=== PATIENT | male | born 1945 | race Caucasian/White ===

== ENCOUNTER 2016-12-16 19:47 | Emergency (ER) | payer OTHER, MEDICARE, MEDICAID ==
[2016-12-16 20:10] VITALS: BP 199/101
[2016-12-16] MEDS ORDERED: Aspirin 81 MG Tab.Chew PO ONE (20:15)
[2016-12-16 20:48] LABS: CHLORIDE,CL 98 mmol/L (101-111); SODIUM,NA 133 mmol/L (135-145)
--- NOTE | 2016-12-16 21:04 | EDM.PDOC ---
ED HISTORY OF PRESENT ILLNESS - General Chief Complaint: Chest Pain Stated Complaint: BLOOD PRESSURE WENT UP Time Seen by Provider: 12/16/16 20:05 Source of Information: Reports: Patient History Limitations: Reports: No limitations - History of Present Illness INITIAL COMMENTS - FREE TEXT/NARRATIVE: vague complaint, initially of high BP and chest pain which is now relieved, admits anxiety. [facility]. Has not heard results. Notes epigastric pain from not eating when took medications this am. Patient is in no distress, lengthy detailed historian. - Related Data Allergies/ADRs: Allergies Allergy/AdvReac Type Severity Reaction Status Date / Time budesonide [From Symbicort] Allergy Numbness Verified 12/16/16 20:56 formoterol [From Symbicort] Allergy Numbness Verified 12/16/16 20:56 metoprolol Allergy Swollen Verified 12/16/16 20:53 Tongue tiotropium Allergy Cough Verified 12/16/16 20:55 [From Spiriva with HandiHaler] cholesterol pills Allergy Other Uncoded 12/16/16 20:53 Home Meds: Home Meds Hydrochlorothiazide 25 mg PO DAILY 11/08/14 [History] Verapamil [Verelan PM] 300 mg PO BEDTIME 11/08/14 [History] Levothyroxine Sodium [Synthroid] 25 mcg PO ACBREAKFAST 03/15/15 [History] Ranitidine HCl 1 tab PO BID PRN 06/23/15 [History] Clopidogrel Bisulfate [Clopidogrel] 75 mg PO DAILY 09/06/15 [History] Albuterol [Ventolin HFA] 2 puff INH Q4H PRN 05/22/16 [History] Apixaban [Eliquis] 5 mg PO BID 12/16/16 [History] Past Medical History HEENT History: Reports: Cataract Cardiovascular History: Reports: High cholesterol, Hypertension, Stents Respiratory History: Reports: COPD Gastrointestinal History: Reports: GERD Endocrine/Metabolic History: Reports: Hypothyroidism Other Endocrine/Metabolic History: thyroid problems - Infectious Disease History Infectious Disease History: Reports: Measles, Mumps - Past Surgical History HEENT Surgical History: Reports: Cataract surgery, Other (see below) Other HEENT Surgeries/Procedures: 1 week ago cataract left eye surgery Cardiovascular Surgical History: Reports: Coronary artery bypass Other Cardiovascular Surgeries/Procedures: stent in left leg Social & Family History - Tobacco Use Smoking Status *Q: Current Every Day Smoker Years of Tobacco use: 60 Packs/Tins Daily: 0.7 Used Tobacco, but Quit: No Second Hand Smoke Exposure: Yes - Caffeine Use Caffeine Use: Reports: Soda - Alcohol Use Days Per Week of Alcohol Use: 0 - Recreational Drug Use Recreational Drug Use: No - Living Situation & Occupation Living situation: Reports: , alone Occupation: retired ED ROS GENERAL - Review of Systems Review Of Systems: See Below Constitutional: Reports: no symptoms HEENT: Reports: No symptoms Respiratory: Reports: Shortness of Breath (chronic), Cough (chronic), Sputum ( yellow at times) Cardiovascular: Reports: Chest pain (notes across anterior chest worse with coughing), Blood pressure problem (elevated tonight) GI/Abdominal: Reports: No symptoms Musculoskeletal: Reports: no symptoms Skin: Reports: no symptoms Neurological: Reports: No Symptoms ED EXAM, GENERAL - Physical Exam Exam: See Below Exam Limited By: No limitations General Appearance: alert, no apparent distress Ears: normal external exam, normal TMs Nose: normal inspection Throat/Mouth: Normal inspection Head: atraumatic, normocephalic Neck: normal inspection Respiratory/Chest: no respiratory distress, decreased breath sounds, wheezing ( right improves with cough), other (cough loose bronchial non productive) Cardiovascular: normal peripheral pulses, regular rate, rhythm GI/Abdominal: normal bowel sounds Extremities: normal inspection, normal range of motion Neurological: alert, oriented, normal cognition Psychiatric: anxious Skin Exam: Warm, Dry, Intact, Normal color EKG INTERPRETATION Rhythm: NSR Course - Vital Signs Last Recorded V/S: Last Vital Signs Temp 97.8 F 12/16/16 19:59 Pulse 82 12/16/16 19:59 Resp 18 12/16/16 19:59 BP 199/101 H 12/16/16 19:59 Pulse Ox 97 12/16/16 19:59 - Orders/Labs/Meds Orders: Active Orders 24 hr Category Date Time Status EKG 12 Lead [EKG Documentation Completion] [RC] URGENT Care 12/16/16 20:16 Active Labs: Laboratory Tests 12/16/16 12/16/16 12/16/16 Range/Units 20:20 20:20 20:20 WBC 12.3 H (5.0-10.0) 10^3/uL RBC 5.31 (4.6-6.2) 10^6/uL Hgb 16.7 (14.0-18.0) g/dL Hct 47.6 (40.0-54.0) % MCV 89.6 (80-100) fL MCH 31.5 (27.0-34.0) pg MCHC 35.1 H (33.0-35.0) g/dL Plt Count 267 (150-450) 10^3/uL Neut % (Auto) 64.8 (42.2-75.2) % Lymph % (Auto) 28.7 (20.5-50.1) % [place] % (Auto) 6.1 (2-8) % Eos % (Auto) 0.2 L (1.0-3.0) % Baso % (Auto) 0.2 (0.0-1.0) % PT 10.4 (9.0-12.0) SEC INR 1.0 (0.9-1.2) D-Dimer, Quantitative (0-400) ng/mL Sodium 133 L (135-145) mmol/L Potassium 3.7 (3.6-5.0) mmol/L Chloride 98 L (101-111) mmol/L Carbon Dioxide 26.0 (21.0-31.0) mmol/L Anion Gap 12.7 BUN 24 H (7-18) mg/dL Creatinine 1.0 (0.6-1.3) mg/dL Est Cr Clr Drug Dosing 68.94 mL/min Estimated GFR (MDRD) > 60 BUN/Creatinine Ratio 24.00 Glucose 111 H (74-105) mg/dL Calcium 9.5 (8.4-10.2) mg/dl Total Bilirubin 0.5 (0.2-1.0) mg/dL AST 21 (10-42) IU/L ALT 18 (10-60) IU/L Alkaline Phosphatase 48 (42-121) IU/L CK-MB (CK-2) (0.4-4.7) ng/mL Troponin I < 0.02 (0.00-0.02) ng/ml B-Natriuretic Peptide 64 (0-100) pg/ml Total Protein 7.3 (6.7-8.2) g/dl Albumin 3.9 (3.2-5.5) g/dl Globulin 3.4 Albumin/Globulin Ratio 1.15 03/23/17 03/23/17 Range/Units 20:20 20:20 WBC (5.0-10.0) 10^3/uL RBC (4.6-6.2) 10^6/uL Hgb (14.0-18.0) g/dL Hct (40.0-54.0) % MCV (80-100) fL MCH (27.0-34.0) pg MCHC (33.0-35.0) g/dL Plt Count (150-450) 10^3/uL Neut % (Auto) (42.2-75.2) % Lymph % (Auto) (20.5-50.1) % [place] % (Auto) (2-8) % Eos % (Auto) (1.0-3.0) % Baso % (Auto) (0.0-1.0) % PT (9.0-12.0) SEC INR (0.9-1.2) D-Dimer, Quantitative 258 (0-400) ng/mL Sodium (135-145) mmol/L Potassium (3.6-5.0) mmol/L Chloride (101-111) mmol/L Carbon Dioxide (21.0-31.0) mmol/L Anion Gap BUN (7-18) mg/dL Creatinine (0.6-1.3) mg/dL Est Cr Clr Drug Dosing mL/min Estimated GFR (MDRD) BUN/Creatinine Ratio Glucose (74-105) mg/dL Calcium (8.4-10.2) mg/dl Total Bilirubin (0.2-1.0) mg/dL AST (10-42) IU/L ALT (10-60) IU/L Alkaline Phosphatase (42-121) IU/L CK-MB (CK-2) 2.80 (0.4-4.7) ng/mL Troponin I (0.00-0.02) ng/ml B-Natriuretic Peptide (0-100) pg/ml Total Protein (6.7-8.2) g/dl Albumin (3.2-5.5) g/dl Globulin Albumin/Globulin Ratio Meds: Medications Discontinued Medications Generic Name Dose Route Start Last Admin Trade Name Freq PRN Reason Stop Dose Admin Aspirin 324 mg 12/16/16 20:15 12/16/16 20:21 Aspirin PO 03/23/17 20:16 Not Given ONETIME ONE Lorazepam Confirm 12/16/16 21:38 12/16/16 21:45 Ativan Administered 12/16/16 21:39 Not Given Dose 0.5 mg .ROUTE .STK-MED ONE - Radiology Interpretation Free Text/Narrative:: CXR negative Departure - Departure Time of Disposition: 21:47 Disposition: Home, Self-Care 01 Condition: good Clinical Impression: Non-cardiac chest pain, Cough, Anxiety about health COPD (chronic obstructive pulmonary disease) Qualifiers: COPD type: chronic bronchitis Chronic bronchitis type: unspecified Qualified Code(s): J42 - Unspecified chronic bronchitis Instructions: Chronic Obstructive Pulmonary Disease, [id number] Referrals: PCP,Unknown [Primary Care Provider] - Forms: ED Department Discharge Additional Instructions: home medications as ordered ativan 0.5mg one half tablet tiwce daily as needed [facility] - My Orders Last 24 Hours: My Active Orders 12/16/16 20:16 EKG 12 Lead [EKG Documentation Completion] [RC] URGENT - Assessment/Plan Last 24 Hours: My Active Orders 12/16/16 20:16 EKG 12 Lead [EKG Documentation Completion] [RC] URGENT
[2016-12-16] MEDS ORDERED: LORazepam 0.5 MG Tab PO ONE (21:38)
[2016-12-16] MEDS ORDERED: LORazepam 0.5 MG Tab ONE (21:38)
--- NOTE | 2016-12-17 11:54 | EKG ---
12/16/2016 - MAU CARLTON - EKG shows sinus rhythm. There is right bundle-branch block. [facility] /[id number]
== END 2016-12-16 21:54 | disposition home or self-care (01) ==
LOC: DL.ED 19:47
DX: J42 Unspecified chronic bronchitis (principal); R07.89 Other chest pain; F41.9 Anxiety disorder, unspecified; I10 Essential (primary) hypertension; K21.9 Gastro-esophageal reflux disease without esophagitis; E03.9 Hypothyroidism, unspecified; Z95.1 Presence of aortocoronary bypass graft; F17.210 Nicotine dependence, cigarettes, uncomplicated; Z88.8 Allergy status to other drugs, medicaments and biological substances; Z79.899 Other long term (current) drug therapy; E78.00 Pure hypercholesterolemia, unspecified; Z98.49 Cataract extraction status, unspecified eye
CPT/HCPCS: 36415; 71010; 80053; 82553; 83880; 84484; 85025; 85379; 85610; 93005; 93010; 99285; A9270-GY

== ENCOUNTER 2017-01-06 05:50 | Emergency (ER) | payer MEDICARE, MEDICAID, SELFPAY ==
[2017-01-06] MEDS ORDERED: Albuterol 0.083% 2.5 MG/3 ML Neb Soln NEB ONE (05:58)
[2017-01-06] MEDS ORDERED: methylPREDNISolone Sodium Succinate 125 MG/2 ML SDV IVPUSH ONE (05:59)
--- NOTE | 2017-01-06 06:02 | EDM.PDOC ---
<Flavia Alejo - Last Filed: 01/06/17 06:14> ED HISTORY OF PRESENT ILLNESS - General Chief Complaint: Respiratory Problem Stated Complaint: DIFFICULTY BREATHING Time Seen by Provider: 01/06/17 06:05 Source of Information: Reports: Patient History Limitations: Reports: No limitations - History of Present Illness INITIAL COMMENTS - FREE TEXT/NARRATIVE: ED ambulatory, C/o SOB since 430, tried albuterol inhaler without improvement, Duoneb last night before bed. No fever or chill. Hx COPD. Cough productive at times white to green sputum, No c/o of chest pain. No chest pain. Timing/Duration: Reports: Hour(s): Severity: mild - Related Data Allergies/ADRs: Allergies Allergy/AdvReac Type Severity Reaction Status Date / Time budesonide [From Symbicort] Allergy Numbness Verified 01/06/17 06:04 formoterol [From Symbicort] Allergy Numbness Verified 01/06/17 06:04 metoprolol Allergy Swollen Verified 01/06/17 06:04 Tongue tiotropium Allergy Cough Verified 01/06/17 06:04 [From Spiriva with HandiHaler] cholesterol pills Allergy Other Uncoded 01/06/17 06:04 Home Meds: Home Meds Hydrochlorothiazide 25 mg PO DAILY 11/08/14 [History] Verapamil [Verelan PM] 300 mg PO BEDTIME 11/08/14 [History] Levothyroxine Sodium [Synthroid] 25 mcg PO ACBREAKFAST 03/15/15 [History] Ranitidine HCl 1 tab PO BID PRN 06/23/15 [History] Clopidogrel Bisulfate [Clopidogrel] 75 mg PO DAILY 09/06/15 [History] Albuterol [Ventolin HFA] 2 puff INH Q4H PRN 05/22/16 [History] Apixaban [Eliquis] 5 mg PO BID 12/16/16 [History] Past Medical History HEENT History: Reports: Cataract Cardiovascular History: Reports: High cholesterol, Hypertension, Stents Respiratory History: Reports: COPD Gastrointestinal History: Reports: GERD Endocrine/Metabolic History: Reports: Hypothyroidism Other Endocrine/Metabolic History: thyroid problems - Infectious Disease History Infectious Disease History: Reports: Measles, Mumps - Past Surgical History HEENT Surgical History: Reports: Cataract surgery, Other (see below) Other HEENT Surgeries/Procedures: 1 week ago cataract left eye surgery Cardiovascular Surgical History: Reports: Coronary artery bypass Other Cardiovascular Surgeries/Procedures: stent in left leg Social & Family History - Tobacco Use Smoking Status *Q: Current Every Day Smoker Years of Tobacco use: 60 Packs/Tins Daily: 0.7 Used Tobacco, but Quit: No Second Hand Smoke Exposure: Yes - Caffeine Use Caffeine Use: Reports: Soda - Alcohol Use Days Per Week of Alcohol Use: 0 - Recreational Drug Use Recreational Drug Use: No - Living Situation & Occupation Living situation: Reports: , alone Occupation: retired ED ROS GENERAL - Review of Systems Review Of Systems: See Below Constitutional: Reports: no symptoms HEENT: Reports: No symptoms Respiratory: Reports: Shortness of Breath, Cough, Sputum Cardiovascular: Reports: No symptoms GI/Abdominal: Reports: No symptoms Musculoskeletal: Reports: no symptoms Skin: Reports: no symptoms Neurological: Reports: No Symptoms ED EXAM, GENERAL - Physical Exam Exam: See Below Exam Limited By: No limitations General Appearance: alert, anxious, mild distress (talkative, full sentences) Eye Exam: bilateral eye: EOMI, PERRL Ears: normal external exam, normal TMs Throat/Mouth: Normal inspection, Normal oropharynx Head: atraumatic Neck: normal inspection, full range of motion Respiratory/Chest: wheezing (right) Cardiovascular: regular rate, rhythm. No: no edema (trace) GI/Abdominal: normal bowel sounds, soft Extremities: normal inspection, normal range of motion Neurological: alert, oriented, normal cognition Psychiatric: normal affect Skin Exam: Warm, Dry, Intact Course - Vital Signs Last Recorded V/S: Last Vital Signs Temp 36.2 C 01/06/17 06:13 Pulse 60 01/06/17 07:11 Resp 19 01/06/17 06:13 BP 139/83 01/06/17 06:13 Pulse Ox 97 01/06/17 07:11 - Orders/Labs/Meds Orders: Active Orders 24 hr Category Date Time Status EKG 12 Lead [EKG Documentation Completion] [RC] URGENT Care 01/06/17 05:57 Active RT Aerosol Therapy [RC] ASDIRECTED Care 01/06/17 05:58 Active RT Aerosol Therapy [RC] ASDIRECTED Care 01/06/17 06:59 Active Chest 1V Frontal [CR] Urgent Exams 01/06/17 05:56 Taken Labs: Laboratory Tests 0401/06/17 01/06/17 Range/Units 06:03 06:03 06:03 WBC 6.7 (5.0-10.0) 10^3/uL RBC 5.57 (4.6-6.2) 10^6/uL Hgb 17.3 (14.0-18.0) g/dL Hct 50.0 (40.0-54.0) % MCV 89.8 (80-100) fL MCH 31.1 (27.0-34.0) pg MCHC 34.6 (33.0-35.0) g/dL Plt Count 281 (150-450) 10^3/uL Neut % (Auto) 41.3 L (42.2-75.2) % Lymph % (Auto) 43.0 (20.5-50.1) % [place] % (Auto) 7.4 (2-8) % Eos % (Auto) 7.4 H (1.0-3.0) % Baso % (Auto) 0.9 (0.0-1.0) % PT (9.0-12.0) SEC INR (0.9-1.2) Sodium 135 (135-145) mmol/L Potassium 3.7 (3.6-5.0) mmol/L Chloride 99 L (101-111) mmol/L Carbon Dioxide 27.0 (21.0-31.0) mmol/L Anion Gap 12.7 BUN 15 (7-18) mg/dL Creatinine 1.2 (0.6-1.3) mg/dL Est Cr Clr Drug Dosing 57.45 mL/min Estimated GFR (MDRD) 60 BUN/Creatinine Ratio 12.50 Glucose 116 H (74-105) mg/dL Calcium 9.3 (8.4-10.2) mg/dl Total Bilirubin 0.5 (0.2-1.0) mg/dL AST 19 (10-42) IU/L ALT 15 (10-60) IU/L Alkaline Phosphatase 61 (42-121) IU/L Troponin I < 0.02 (0.00-0.02) ng/ml C-Reactive Protein 1.0 (0.0-1.3) mg/dL B-Natriuretic Peptide 20 (0-100) pg/ml Total Protein 7.5 (6.7-8.2) g/dl Albumin 3.9 (3.2-5.5) g/dl Globulin 3.6 Albumin/Globulin Ratio 1.08 01/06/17 Range/Units 06:03 WBC (5.0-10.0) 10^3/uL RBC (4.6-6.2) 10^6/uL Hgb (14.0-18.0) g/dL Hct (40.0-54.0) % MCV (80-100) fL MCH (27.0-34.0) pg MCHC (33.0-35.0) g/dL Plt Count (150-450) 10^3/uL Neut % (Auto) (42.2-75.2) % Lymph % (Auto) (20.5-50.1) % [place] % (Auto) (2-8) % Eos % (Auto) (1.0-3.0) % Baso % (Auto) (0.0-1.0) % PT 10.1 (9.0-12.0) SEC INR 1.0 (0.9-1.2) Sodium (135-145) mmol/L Potassium (3.6-5.0) mmol/L Chloride (101-111) mmol/L Carbon Dioxide (21.0-31.0) mmol/L Anion Gap BUN (7-18) mg/dL Creatinine (0.6-1.3) mg/dL Est Cr Clr Drug Dosing mL/min Estimated GFR (MDRD) BUN/Creatinine Ratio Glucose (74-105) mg/dL Calcium (8.4-10.2) mg/dl Total Bilirubin (0.2-1.0) mg/dL AST (10-42) IU/L ALT (10-60) IU/L Alkaline Phosphatase (42-121) IU/L Troponin I (0.00-0.02) ng/ml C-Reactive Protein (0.0-1.3) mg/dL B-Natriuretic Peptide (0-100) pg/ml Total Protein (6.7-8.2) g/dl Albumin (3.2-5.5) g/dl Globulin Albumin/Globulin Ratio Meds: Medications Discontinued Medications Generic Name Dose Route Start Last Admin Trade Name Freq PRN Reason Stop Dose Admin Albuterol 2.5 mg 01/06/17 05:58 01/06/17 06:05 Proventil Neb Soln NEB 01/06/17 05:59 2.5 mg ONETIME ONE Administration Albuterol/Ipratropium 3 ml 01/06/17 06:59 01/06/17 07:05 Duoneb 3.0-0.5 Mg/3 Ml NEB 01/06/17 07:00 3 ml ONETIME ONE Administration Methylprednisolone Sodium Succinate 125 mg 01/06/17 05:59 01/06/17 06:10 Solu-Medrol IVPUSH 01/06/17 06:00 125 mg ONETIME ONE Administration Departure - Departure Disposition: Home, Self-Care 01 Condition: good Clinical Impression: COPD (chronic obstructive pulmonary disease) with chronic bronchitis Instructions: Chronic Obstructive Pulmonary Disease Exacerbation, [id number] Forms: ED Department Discharge Additional Instructions: albuterol 2.5/3ml one via nebulizer every 4 hours s needed for difficulty breathing prednisone 10mg 2 tablets daily for one week then on tablet daily for one week robitussin cough syrup one teaspoon every 4-6 hours as needed to help loosen mucus recheck clinic on Tuesday sooner if symptoms worsen try to quit smoking <Melvin Lane - Last Filed: 01/06/17 07:32> Departure - Departure Time of Disposition: 07:32
[2017-01-06 06:14] VITALS: BP 139/83
[2017-01-06 06:31] LABS: CHLORIDE,CL 99 mmol/L (101-111); SODIUM,NA 135 mmol/L (135-145)
[2017-01-06] MEDS ORDERED: Albuterol/Ipratropium 3.0-0.5 MG/3 ML Neb Soln NEB ONE (06:59)
--- NOTE | 2017-01-07 09:23 | EKG ---
01/06/2017- MAU CARLTON - EKG done on a 71-year-old male showing sinus rhythm, heart rate of 64 beats per minute, right bundle branch block noted. No acute ST wave changes. [facility] /[id number]
== END 2017-01-06 07:35 | disposition home or self-care (01) ==
LOC: EEVIPCON 05:50 → DL.ED 05:50
DX: J44.9 Chronic obstructive pulmonary disease, unspecified (principal); E78.00 Pure hypercholesterolemia, unspecified; I10 Essential (primary) hypertension; K21.9 Gastro-esophageal reflux disease without esophagitis; E03.9 Hypothyroidism, unspecified; F17.210 Nicotine dependence, cigarettes, uncomplicated; Z95.1 Presence of aortocoronary bypass graft; Z88.8 Allergy status to other drugs, medicaments and biological substances; Z79.899 Other long term (current) drug therapy; Z98.42 Cataract extraction status, left eye
CPT/HCPCS: 36415; 71010; 80053; 83880; 84484; 85025; 85610; 86140; 93005; 94640; 96374; 99285; J2930; J7620; 93010; 99284

== ENCOUNTER 2017-06-15 08:13 | Emergency (ER) | payer MEDICARE, MEDICAID, OTHER, SELFPAY ==
--- NOTE | 2017-06-15 08:32 | EDM.PDOC ---
ED HPI GENERAL MEDICAL PROBLEM - General Chief Complaint: Chest Pain Stated Complaint: CHEST PAINS, FROM [facility] Time Seen by Provider: 06/15/17 08:21 Source of Information: Reports: Patient History Limitations: Reports: No Limitations - History of Present Illness INITIAL COMMENTS - FREE TEXT/NARRATIVE: This 72 yo male patient was brought to the ED from the [facility] due to chest pain. Apparently, the patient arrived at the [facility] this morning to be seen for chest pain. The patient reports his pain started at about 0530 after taking medications for some upper abdominal discomfort. The patient reports he took Ranatidine, Benadryl, Lorazepam, Tylenol, Prednisone and his albuterol inhaler with no symptom relief. The patient reports his pain is similar to previous episodes of acid reflux. The patient also reports he has not been having too many regular bowel movements. The patient reports he had a small bowel movement this morning. The patient reports he is now feeling a little better, but continues to have upper abdominal pain and mid back pain. Onset: Today Onset Date: 06/15/17 Onset Time: 05:30 Duration: Constant Location: Reports: Chest, Abdomen, Back Quality: Reports: Ache, Dull Severity: Moderate Improves with: Reports: None Worsens with: Reports: None Associated Symptoms: Reports: No Other Symptoms Epigastric Pain Score (Numeric/FACES): 7 Back Pain Score (Numeric/FACES): 7 - Related Data Allergies Allergy/AdvReac Type Severity Reaction Status Date / Time budesonide [From Symbicort] Allergy Numbness Verified 01/06/17 06:04 formoterol [From Symbicort] Allergy Numbness Verified 01/06/17 06:04 metoprolol Allergy Swollen Verified 01/06/17 06:04 Tongue tiotropium Allergy Cough Verified 01/06/17 06:04 [From Spiriva with HandiHaler] cholesterol pills Allergy Other Uncoded 01/06/17 06:04 Home Meds: Home Meds Hydrochlorothiazide 25 mg PO DAILY 11/08/14 [History] Verapamil [Verelan PM] 300 mg PO BEDTIME 11/08/14 [History] Levothyroxine Sodium [Synthroid] 25 mcg PO ACBREAKFAST 03/15/15 [History] Ranitidine HCl 1 tab PO BID PRN 06/23/15 [History] Clopidogrel Bisulfate [Clopidogrel] 75 mg PO DAILY 09/06/15 [History] Albuterol [Ventolin HFA] 2 puff INH Q6H PRN 05/22/16 [History] Apixaban [Eliquis] 5 mg PO BID 12/16/16 [History] Albuterol/Ipratropium [DuoNeb 3.0-0.5 MG/3 ML] 3 ml NEB Q6HRRT 06/15/17 [History ] Amiodarone [Cordarone] 200 mg PO DAILY 06/15/17 [History] LORazepam [Ativan] 0.5 mg PO DAILY PRN 06/15/17 [History] Nicotine [Nicotine Patch] 1 patch TOP DAILY 06/15/17 [History] Prednisone [IMW: Prednisone] 10 mg PO DAILY 06/15/17 [History] Past Medical History HEENT History: Reports: Cataract Cardiovascular History: Reports: High Cholesterol, Hypertension, Stents Respiratory History: Reports: COPD Gastrointestinal History: Reports: GERD Endocrine/Metabolic History: Reports: Hypothyroidism Other Endocrine/Metabolic History: thyroid problems - Infectious Disease History Infectious Disease History: Reports: Measles, Mumps - Past Surgical History HEENT Surgical History: Reports: Cataract Surgery, Other (See Below) Cardiovascular Surgical History: Reports: Coronary Artery Bypass Social & Family History - Tobacco Use Smoking Status *Q: Current Every Day Smoker Years of Tobacco use: 60 Packs/Tins Daily: 0.7 Used Tobacco, but Quit: No Second Hand Smoke Exposure: Yes - Caffeine Use Caffeine Use: Reports: Soda - Alcohol Use Days Per Week of Alcohol Use: 0 - Recreational Drug Use Recreational Drug Use: No - Living Situation & Occupation Living situation: Reports: , Alone Occupation: Retired ED ROS GENERAL - Review of Systems Review Of Systems: ROS reveals no pertinent complaints other than HPI. ED EXAM, GENERAL - Physical Exam Exam: See Below Exam Limited By: No Limitations General Appearance: Alert, WD/WN, Mild Distress, Obese Eye Exam: Bilateral Eye: EOMI, Normal Inspection, PERRL Ears: Normal External Exam, Normal Canal, Hearing Grossly Normal, Normal TMs Nose: Normal Inspection, Normal Mucosa, No Blood Throat/Mouth: Normal Inspection, Normal Lips, Normal Teeth, Normal Gums, Normal Oropharynx, Normal Voice, No Airway Compromise Head: Atraumatic, Normocephalic Neck: Normal Inspection, Supple, Non-Tender, Full Range of Motion Respiratory/Chest: Decreased Breath Sounds, Rhonchi (diffuse) Cardiovascular: Normal Peripheral Pulses, Regular Rate, Rhythm, No Edema, No Gallop, No JVD, No Murmur, No Rub GI/Abdominal: Normal Bowel Sounds, No Organomegaly, No Distention, No Abnormal Bruit, No Mass, Distended, Tender (diffuse tenderness to palpation) (Male) Exam: Deferred Rectal (Males) Exam: Deferred Back Exam: Normal Inspection, Full Range of Motion, NT Extremities: Normal Inspection, Normal Range of Motion, Non-Tender, Normal Capillary Refill, No Pedal Edema Neurological: Alert, Oriented, CN II-XII Intact, Normal Cognition, Normal Gait, Normal Reflexes, No Motor/Sensory Deficits Psychiatric: Normal Affect, Normal Mood Skin Exam: Warm, Dry, Intact, Normal Color, No Rash Lymphatic: No Adenopathy Course - Vital Signs Last Recorded V/S: Last Vital Signs Temp 36.2 C 06/15/17 08:15 Pulse 67 06/15/17 08:15 Resp 20 06/15/17 08:15 BP 185/81 H 06/15/17 08:15 Pulse Ox 96 06/15/17 08:15 - Orders/Labs/Meds Orders: Active Orders 24 hr Category Date Time Status EKG Documentation Completion [RC] URGENT Care 06/15/17 08:14 Active Abdomen 2V AP Flat Upright [CR] Urgent Exams 06/15/17 08:59 Ordered Chest 1V Frontal [CR] Urgent Exams 06/15/17 08:14 Ordered Labs: Laboratory Tests 06/15/17 06/15/17 06/15/17 Range/Units 08:28 08:28 08:28 WBC 9.8 (5.0-10.0) 10^3/uL RBC 5.35 (4.6-6.2) 10^6/uL Hgb 17.0 (14.0-18.0) g/dL Hct 50.3 (40.0-54.0) % MCV 94.0 (80-100) fL MCH 31.8 (27.0-34.0) pg MCHC 33.8 (33.0-35.0) g/dL Plt Count 230 (150-450) 10^3/uL Neut % (Auto) 71.1 (42.2-75.2) % Lymph % (Auto) 20.4 L (20.5-50.1) % [place] % (Auto) 5.3 (2-8) % Eos % (Auto) 2.4 (1.0-3.0) % Baso % (Auto) 0.8 (0.0-1.0) % PT 9.7 (9.0-12.0) SEC INR 1.0 (0.9-1.2) D-Dimer, Quantitative 166 (0-400) ng/mL Sodium 139 (135-145) mmol/L Potassium 4.2 (3.6-5.0) mmol/L Chloride 99 L (101-111) mmol/L Carbon Dioxide 27.0 (21.0-31.0) mmol/L Anion Gap 17.2 BUN 18 (7-18) mg/dL Creatinine 1.1 (0.6-1.3) mg/dL Est Cr Clr Drug Dosing 63.70 mL/min Estimated GFR (MDRD) > 60 BUN/Creatinine Ratio 16.36 Glucose 122 H (74-105) mg/dL Calcium 9.8 (8.4-10.2) mg/dl Total Bilirubin 0.5 (0.2-1.0) mg/dL AST 19 (10-42) IU/L ALT 18 (10-60) IU/L Alkaline Phosphatase 44 (42-121) IU/L Troponin I < 0.02 (0.00-0.02) ng/ml B-Natriuretic Peptide 19 (0-100) pg/ml Total Protein 7.2 (6.7-8.2) g/dl Albumin 3.9 (3.2-5.5) g/dl Globulin 3.3 Albumin/Globulin Ratio 1.18 Meds: Medications Discontinued Medications Generic Name Dose Route Start Last Admin Trade Name Freq PRN Reason Stop Dose Admin Amoxicillin/Clavulanate Potassium 1 tab 06/15/17 09:24 Augmentin 875 Mg/125 Mg PO 06/15/17 09:25 ONETIME ONE Departure - Departure Time of Disposition: :31 Disposition: Home, Self-Care 01 Condition: Fair Clinical Impression: Bronchitis Constipation Qualifiers: Constipation type: unspecified constipation type Qualified Code(s): K59.00 - Constipation, unspecified GERD (gastroesophageal reflux disease) Qualifiers: Esophagitis presence: with esophagitis Qualified Code(s): K21.0 - Gastro- esophageal reflux disease with esophagitis Instructions: Constipation, Adult, Gastroesophageal Reflux Disease, Adult, Acute Bronchitis, [id number] Forms: ED Department Discharge Care Plan Goals: The patient was advised of the examination, lab, EKG and x-ray results during the visit. The patient was given an oral dose of Augmentin while in the ED. The patient was discharged with a script for Augmentin (500/125) to take 1 by mouth 2 times per day for 10 days. The patient should continue to take his other medications as prescribed. The patient was also encouraged to take his stool softener as directed. If the patient has any additional symptoms or concerns, the patient should follow-up with is primary care facility or return to the emergency department. - My Orders Last 24 Hours: My Active Orders 06/15/17 08:14 EKG Documentation Completion [RC] URGENT Chest 1V Frontal [CR] Urgent 06/15/17 08:59 Abdomen 2V AP Flat Upright [CR] Urgent - Assessment/Plan Last 24 Hours: My Active Orders 06/15/17 08:14 EKG Documentation Completion [RC] URGENT Chest 1V Frontal [CR] Urgent 06/15/17 08:59 Abdomen 2V AP Flat Upright [CR] Urgent
[2017-06-15 08:54] LABS: CHLORIDE,CL 99 mmol/L (101-111); SODIUM,NA 139 mmol/L (135-145)
[2017-06-15] MEDS ORDERED: Amoxicillin/Clavulanate K 875-125 MG Tab PO ONE (09:24)
[2017-06-15 10:39] VITALS: BP 164/88
--- NOTE | 2017-06-15 16:30 | EKG ---
06/15/2017 - MAU CARLTON I reviewed the EKG and agree with the machine reading. [facility] /[id number]
== END 2017-06-15 09:41 | disposition home or self-care (01) ==
LOC: DL.ED 08:13
DX: K21.0 Gastro-esophageal reflux disease with esophagitis (principal); J20.9 Acute bronchitis, unspecified; K59.00 Constipation, unspecified; I10 Essential (primary) hypertension; J44.9 Chronic obstructive pulmonary disease, unspecified; F17.210 Nicotine dependence, cigarettes, uncomplicated; Z88.8 Allergy status to other drugs, medicaments and biological substances
CPT/HCPCS: 36415; 71010; 74020; 80053; 83880; 84484; 85025; 85379; 85610; 93005; 93010; 99285; A9270; 99284

== ENCOUNTER 2017-07-16 11:37 | Emergency (ER) | payer MEDICARE, MEDICAID, OTHER, SELFPAY ==
[2017-07-16 11:56] VITALS: BP 160/91
--- NOTE | 2017-07-16 12:12 | EDM.PDOC ---
ED HPI GENERAL MEDICAL PROBLEM - General Chief Complaint: General Stated Complaint: HEART, WANTS EKG Time Seen by Provider: 07/16/17 12:09 Source of Information: Reports: Patient History Limitations: Reports: No Limitations - History of Present Illness INITIAL COMMENTS - FREE TEXT/NARRATIVE: 72 yo white male c/o irregular heart beat 2 days ago. PMHx. CAHD s/p CABG 3 vessels in 2011. Pt. also has PMHx. of cardiac arrythmia and continues to smoke cigarettes. Pt. denies ( SOB, Chest pain or pressure and no radiation of pain) Onset Date: 07/14/17 Onset Time: 12:00 Duration: Day(s): Location: Reports: Chest Severity: Mild Improves with: Reports: None Worsens with: Reports: None Context: Reports: Other (PMHx. CAHD and Arrythmia) Associated Symptoms: Reports: No Other Symptoms Bilateral Feet Pain Score (Numeric/FACES): 1 - Related Data Allergies Allergy/AdvReac Type Severity Reaction Status Date / Time budesonide [From Symbicort] Allergy Numbness Verified 01/06/17 06:04 formoterol [From Symbicort] Allergy Numbness Verified 01/06/17 06:04 metoprolol Allergy Swollen Verified 01/06/17 06:04 Tongue tiotropium Allergy Cough Verified 01/06/17 06:04 [From Spiriva with HandiHaler] cholesterol pills Allergy Other Uncoded 01/06/17 06:04 Home Meds: Home Meds Hydrochlorothiazide 50 mg PO DAILY 11/08/14 [History] Verapamil [Verelan PM] 300 mg PO BEDTIME 11/08/14 [History] Levothyroxine Sodium [Synthroid] 25 mcg PO ACBREAKFAST 03/15/15 [History] Ranitidine HCl 1 tab PO BID PRN 06/23/15 [History] Clopidogrel Bisulfate [Clopidogrel] 75 mg PO DAILY 09/06/15 [History] Albuterol [Ventolin HFA] 2 puff INH Q6H PRN 05/22/16 [History] Apixaban [Eliquis] 5 mg PO BID 12/16/16 [History] Albuterol/Ipratropium [DuoNeb 3.0-0.5 MG/3 ML] 3 ml NEB Q6HRRT 06/15/17 [History ] Amiodarone [Cordarone] 100 mg PO DAILY 06/15/17 [History] LORazepam [Ativan] 0.5 mg PO DAILY PRN 06/15/17 [History] Prednisone [IMW: Prednisone] 10 mg PO DAILY 06/15/17 [History] Fluticasone Furoate [Flonase Sensimist] 1 spray NASBOTH DAILY 07/16/17 [History] Montelukast [Singulair] 10 mg PO BEDTIME 07/16/17 [History] diphenhydrAMINE HCl [Benadryl Allergy] 25 mg PO DAILY PRN 07/16/17 [History] Past Medical History HEENT History: Reports: Cataract Cardiovascular History: Reports: High Cholesterol, Hypertension, Stents Respiratory History: Reports: COPD Gastrointestinal History: Reports: GERD Endocrine/Metabolic History: Reports: Hypothyroidism Other Endocrine/Metabolic History: thyroid problems - Infectious Disease History Infectious Disease History: Reports: Measles, Mumps - Past Surgical History HEENT Surgical History: Reports: Cataract Surgery, Other (See Below) Cardiovascular Surgical History: Reports: Coronary Artery Bypass Social & Family History - Tobacco Use Smoking Status *Q: Current Every Day Smoker Years of Tobacco use: 30 Packs/Tins Daily: 0.5 Used Tobacco, but Quit: No Second Hand Smoke Exposure: No - Caffeine Use Caffeine Use: Reports: Coffee, Tea - Alcohol Use Days Per Week of Alcohol Use: 0 - Recreational Drug Use Recreational Drug Use: No - Living Situation & Occupation Living situation: Reports: , Alone Occupation: Retired ED ROS GENERAL - Review of Systems Review Of Systems: See Below Constitutional: Reports: No Symptoms HEENT: Reports: No Symptoms Respiratory: Reports: No Symptoms Cardiovascular: Reports: Palpitations Endocrine: Reports: No Symptoms GI/Abdominal: Reports: No Symptoms : Reports: No Symptoms Musculoskeletal: Reports: No Symptoms Skin: Reports: No Symptoms Neurological: Reports: No Symptoms Psychiatric: Reports: No Symptoms Hematologic/Lymphatic: Reports: No Symptoms Immunologic: Reports: No Symptoms ED EXAM, GENERAL - Physical Exam Exam: See Below Exam Limited By: No Limitations General Appearance: Alert, No Apparent Distress Eye Exam: Bilateral Eye: EOMI, PERRL Ears: Normal External Exam Nose: Normal Inspection Throat/Mouth: Normal Inspection, Normal Lips Head: Atraumatic, Normocephalic Neck: Normal Inspection, Supple Respiratory/Chest: No Respiratory Distress, Lungs Clear Cardiovascular: Normal Peripheral Pulses, Regular Rate, Rhythm Peripheral Pulses: 2+: Brachial (L), Brachial (R) GI/Abdominal: Normal Bowel Sounds, Soft Back Exam: Normal Inspection Extremities: Normal Inspection, Normal Range of Motion Neurological: Alert, Oriented, CN II-XII Intact, Normal Cognition Psychiatric: Normal Affect Skin Exam: Warm, Intact, Normal Color Lymphatic: No Adenopathy Course - Vital Signs Last Recorded V/S: Last Vital Signs Temp 36.8 C 07/16/17 11:47 Pulse 84 07/16/17 11:47 Resp 18 07/16/17 11:47 BP 160/91 H 07/16/17 11:47 Pulse Ox 97 07/16/17 11:47 - Orders/Labs/Meds Orders: Active Orders 24 hr Category Date Time Status Chest 2V [CR] Urgent Exams 07/16/17 12:10 Taken MAGNESIUM [CHEM] Stat Lab 07/16/17 13:37 Ordered Potassium Chloride [Klor-Con 10] Med 07/16/17 13:37 Once 20 meq PO ONETIME ONE Labs: Laboratory Tests 07/16/17 07/16/17 07/16/17 Range/Units 12:20 12:20 12:20 WBC 7.5 (5.0-10.0) 10^3/uL RBC 5.38 (4.6-6.2) 10^6/uL Hgb 17.0 (14.0-18.0) g/dL Hct 49.9 (40.0-54.0) % MCV 92.8 (80-100) fL MCH 31.6 (27.0-34.0) pg MCHC 34.1 (33.0-35.0) g/dL Plt Count 208 (150-450) 10^3/uL Neut % (Auto) 59.9 (42.2-75.2) % Lymph % (Auto) 28.2 (20.5-50.1) % [place] % (Auto) 8.4 H (2-8) % Eos % (Auto) 2.7 (1.0-3.0) % Baso % (Auto) 0.8 (0.0-1.0) % D-Dimer, Quantitative 195 (0-400) ng/mL Sodium 136 (135-145) mmol/L Potassium 3.5 L (3.6-5.0) mmol/L Chloride 100 L (101-111) mmol/L Carbon Dioxide 26.0 (21.0-31.0) mmol/L Anion Gap 13.5 BUN 19 H (7-18) mg/dL Creatinine 1.2 (0.6-1.3) mg/dL Est Cr Clr Drug Dosing 57.50 mL/min Estimated GFR (MDRD) 59 BUN/Creatinine Ratio 15.83 Glucose 116 H (74-105) mg/dL Calcium 9.4 (8.4-10.2) mg/dl Total Bilirubin 0.9 (0.2-1.0) mg/dL AST 22 (10-42) IU/L ALT 19 (10-60) IU/L Alkaline Phosphatase 45 (42-121) IU/L Troponin I < 0.02 (0.00-0.02) ng/ml Total Protein 6.9 (6.7-8.2) g/dl Albumin 3.8 (3.2-5.5) g/dl Globulin 3.1 Albumin/Globulin Ratio 1.23 Departure - Departure Time of Disposition: 13:39 Disposition: Home, Self-Care 01 Condition: Good Clinical Impression: Heart palpitations, Tobacco abuse disorder, ASHD (arteriosclerotic heart disease), Hypokalemia - Discharge Information Forms: ED Department Discharge Additional Instructions: Rest STOP CIGARETTE SMOKING Continue w/ present medications as prescribed F/U w/ PCP - My Orders Last 24 Hours: My Active Orders 07/16/17 12:10 Chest 2V [CR] Urgent 07/16/17 13:37 MAGNESIUM [CHEM] Stat Potassium Chloride [Klor-Con 10] 20 meq PO ONETIME ONE - Assessment/Plan Last 24 Hours: My Active Orders 07/16/17 12:10 Chest 2V [CR] Urgent 07/16/17 13:37 MAGNESIUM [CHEM] Stat Potassium Chloride [Klor-Con 10] 20 meq PO ONETIME ONE
[2017-07-16 12:47] LABS: CHLORIDE,CL 100 mmol/L (101-111); SODIUM,NA 136 mmol/L (135-145)
[2017-07-16] MEDS ORDERED: Potassium Chloride 10 MEQ Tab.ER PO ONE (13:37)
--- NOTE | 2017-07-19 11:28 | EKG ---
07/16/2017 - MAU CARLTON - EKG shows sinus rhythm at rate of 69 per minute. [facility] /[id number]
== END 2017-07-16 13:56 | disposition home or self-care (01) ==
LOC: DL.ED 11:37
DX: I25.10 Atherosclerotic heart disease of native coronary artery without angina pectoris (principal); I10 Essential (primary) hypertension; E87.6 Hypokalemia; F17.210 Nicotine dependence, cigarettes, uncomplicated; K21.9 Gastro-esophageal reflux disease without esophagitis; J44.9 Chronic obstructive pulmonary disease, unspecified; Z88.8 Allergy status to other drugs, medicaments and biological substances; Z79.899 Other long term (current) drug therapy
CPT/HCPCS: 36415; 71020; 80053; 83735; 84484; 85025; 85379; 99284; A9270

== ENCOUNTER 2017-11-18 02:54 | Inpatient (IN) | payer MEDICARE, MEDICAID ==
--- NOTE | 2017-11-18 03:00 | EDM.PDOC ---
ED HPI GENERAL MEDICAL PROBLEM - General Stated Complaint: SOB [id number] Time Seen by Provider: 11/18/17 02:57 Source of Information: Reports: Patient History Limitations: Reports: No Limitations - History of Present Illness INITIAL COMMENTS - FREE TEXT/NARRATIVE: ED ambulatory with c/o feeling short of breath. for past couple of months. Unable to sleep tonight. Used inhaler more often yesterday. No fever or chills. Cough non productive. Legs starting to swell, Difficulty bending over to tie shoes Admits recent restarting smoking within past month. Hx COPD. No chest pain. Reports base weight 212 but now after being on Prednisone for past 2 months is now upt to 255. - Related Data Allergies Allergy/AdvReac Type Severity Reaction Status Date / Time budesonide [From Symbicort] Allergy Numbness Verified 11/18/17 03:06 formoterol [From Symbicort] Allergy Numbness Verified 11/18/17 03:06 metoprolol Allergy Swollen Verified 11/18/17 03:06 Tongue tiotropium Allergy Cough Verified 11/18/17 03:06 [From Spiriva with HandiHaler] cholesterol pills Allergy Other Uncoded 11/18/17 03:06 Home Meds: Home Meds Hydrochlorothiazide 50 mg PO DAILY 11/08/14 [History] Verapamil [Verelan PM] 300 mg PO BEDTIME 11/08/14 [History] Levothyroxine Sodium [Synthroid] 25 mcg PO ACBREAKFAST 03/15/15 [History] Ranitidine HCl 1 tab PO BID PRN 06/23/15 [History] Clopidogrel Bisulfate [Clopidogrel] 75 mg PO DAILY 09/06/15 [History] Albuterol [Ventolin HFA] 2 puff INH Q6H PRN 05/22/16 [History] Apixaban [Eliquis] 5 mg PO BID 12/16/16 [History] Albuterol/Ipratropium [DuoNeb 3.0-0.5 MG/3 ML] 3 ml NEB Q6HRRT 06/15/17 [History ] Amiodarone [Cordarone] 100 mg PO DAILY 06/15/17 [History] LORazepam [Ativan] 0.5 mg PO DAILY PRN 06/15/17 [History] Prednisone [IMW: Prednisone] 10 mg PO DAILY 06/15/17 [History] Fluticasone Furoate [Flonase Sensimist] 1 spray NASBOTH DAILY 07/16/17 [History] Montelukast [Singulair] 10 mg PO BEDTIME 07/16/17 [History] diphenhydrAMINE HCl [Benadryl Allergy] 25 mg PO DAILY PRN 07/16/17 [History] Past Medical History HEENT History: Reports: Cataract Cardiovascular History: Reports: High Cholesterol, Hypertension, Stents Respiratory History: Reports: COPD Gastrointestinal History: Reports: GERD Genitourinary History: Reports: None Musculoskeletal History: Reports: None Neurological History: Reports: None Psychiatric History: Reports: None Endocrine/Metabolic History: Reports: Hypothyroidism Other Endocrine/Metabolic History: thyroid problems Hematologic History: Reports: None Immunologic History: Reports: None Oncologic (Cancer) History: Reports: None Dermatologic History: Reports: None - Infectious Disease History Infectious Disease History: Reports: Measles, Mumps - Past Surgical History HEENT Surgical History: Reports: Cataract Surgery, Other (See Below) Cardiovascular Surgical History: Reports: Coronary Artery Bypass Social & Family History - Tobacco Use Smoking Status *Q: Current Every Day Smoker Years of Tobacco use: 30 Packs/Tins Daily: 0.5 Used Tobacco, but Quit: No Second Hand Smoke Exposure: No - Caffeine Use Caffeine Use: Reports: Coffee, Tea - Alcohol Use Days Per Week of Alcohol Use: 0 - Recreational Drug Use Recreational Drug Use: No - Living Situation & Occupation Living situation: Reports: , Alone Occupation: Retired ED ROS GENERAL - Review of Systems Review Of Systems: ROS reveals no pertinent complaints other than HPI. HEENT: Reports: No Symptoms Respiratory: Reports: Shortness of Breath, Wheezing, Cough. Denies: Sputum Cardiovascular: Reports: Dyspnea on Exertion, Orthopnea. Denies: Chest Pain GI/Abdominal: Reports: No Symptoms : Reports: No Symptoms Musculoskeletal: Reports: No Symptoms Skin: Reports: No Symptoms Neurological: Reports: No Symptoms ED EXAM, GENERAL - Physical Exam Exam: See Below Exam Limited By: No Limitations General Appearance: Alert, Mild Distress (rare cough, talking full sentences pursed lip breathing, prolonged expiration. ), Moderate Distress (with minimal exertion and coughing episodes. ), Obese Ears: Normal External Exam Ear Exam: Bilateral Ear: Auricle Normal Nose: Normal Inspection Throat/Mouth: Normal Inspection, Normal Lips, Normal Oropharynx, Perioral Cyanosis Head: Atraumatic Neck: Normal Inspection Respiratory/Chest: Decreased Breath Sounds, Rhonchi, Wheezing (thoughout), Prolonged Expiration Cardiovascular: Normal Peripheral Pulses. No: No Edema GI/Abdominal: Normal Bowel Sounds Back Exam: Normal Inspection Extremities: Normal Inspection Neurological: Alert, Oriented, Normal Cognition Psychiatric: Normal Affect, Normal Mood Skin Exam: Warm, Dry, Intact, Normal Color, No Rash Course - Vital Signs Last Recorded V/S: Last Vital Signs Temp 98.7 F 11/18/17 03:48 Pulse 65 11/18/17 03:48 Resp 16 11/18/17 03:48 BP 136/81 11/18/17 03:48 Pulse Ox 100 11/18/17 03:48 - Orders/Labs/Meds Orders: Active Orders 24 hr Category Date Time Status EKG Documentation Completion [RC] URGENT Care 11/18/17 03:02 Active RT Aerosol Therapy [RC] ASDIRECTED Care 11/18/17 03:36 Active CULTURE BLOOD [BC] Stat Lab 11/18/17 04:25 Received CULTURE BLOOD [BC] Stat Lab 11/18/17 04:30 Results LACTIC ACID [CHEM] Stat Lab 11/18/17 03:15 Received Blood Culture x2 Reflex Set [OM.PC] Stat Oth 11/18/17 04:12 Ordered Labs: Laboratory Tests 11/18/17 11/18/17 11/18/17 Range/Units 03:15 03:15 03:15 WBC 11.3 H (5.0-10.0) 10^3/uL RBC 5.34 (4.6-6.2) 10^6/uL Hgb 16.8 (14.0-18.0) g/dL Hct 49.1 (40.0-54.0) % MCV 91.9 (80-100) fL MCH 31.5 (27.0-34.0) pg MCHC 34.2 (33.0-35.0) g/dL Plt Count 235 (150-450) 10^3/uL Neut % (Auto) 51.3 (42.2-75.2) % Lymph % (Auto) 36.2 (20.5-50.1) % [place] % (Auto) 8.6 H (2-8) % Eos % (Auto) 3.4 H (1.0-3.0) % Baso % (Auto) 0.5 (0.0-1.0) % PT 10.0 (9.0-12.0) SEC INR 1.0 (0.9-1.2) Sodium 135 (135-145) mmol/L Potassium 3.3 L (3.6-5.0) mmol/L Chloride 102 (101-111) mmol/L Carbon Dioxide 24.0 (21.0-31.0) mmol/L Anion Gap 12.3 BUN 25 H (7-18) mg/dL Creatinine 1.2 (0.6-1.3) mg/dL Est Cr Clr Drug Dosing 56.61 mL/min Estimated GFR (MDRD) 59 BUN/Creatinine Ratio 20.83 Glucose 97 (74-105) mg/dL Calcium 9.4 (8.4-10.2) mg/dl Total Bilirubin 0.7 (0.2-1.0) mg/dL AST 19 (10-42) IU/L ALT 18 (10-60) IU/L Alkaline Phosphatase 43 (42-121) IU/L CK-MB (CK-2) (0.4-4.7) ng/mL Troponin I < 0.02 (0.00-0.02) ng/ml B-Natriuretic Peptide 90 (0-100) pg/ml Total Protein 6.9 (6.7-8.2) g/dl Albumin 3.7 (3.2-5.5) g/dl Globulin 3.2 Albumin/Globulin Ratio 1.16 11/18/17 Range/Units 03:15 WBC (5.0-10.0) 10^3/uL RBC (4.6-6.2) 10^6/uL Hgb (14.0-18.0) g/dL Hct (40.0-54.0) % MCV (80-100) fL MCH (27.0-34.0) pg MCHC (33.0-35.0) g/dL Plt Count (150-450) 10^3/uL Neut % (Auto) (42.2-75.2) % Lymph % (Auto) (20.5-50.1) % [place] % (Auto) (2-8) % Eos % (Auto) (1.0-3.0) % Baso % (Auto) (0.0-1.0) % PT (9.0-12.0) SEC INR (0.9-1.2) Sodium (135-145) mmol/L Potassium (3.6-5.0) mmol/L Chloride (101-111) mmol/L Carbon Dioxide (21.0-31.0) mmol/L Anion Gap BUN (7-18) mg/dL Creatinine (0.6-1.3) mg/dL Est Cr Clr Drug Dosing mL/min Estimated GFR (MDRD) BUN/Creatinine Ratio Glucose (74-105) mg/dL Calcium (8.4-10.2) mg/dl Total Bilirubin (0.2-1.0) mg/dL AST (10-42) IU/L ALT (10-60) IU/L Alkaline Phosphatase (42-121) IU/L CK-MB (CK-2) 3.40 (0.4-4.7) ng/mL Troponin I (0.00-0.02) ng/ml B-Natriuretic Peptide (0-100) pg/ml Total Protein (6.7-8.2) g/dl Albumin (3.2-5.5) g/dl Globulin Albumin/Globulin Ratio Meds: Medications Discontinued Medications Generic Name Dose Route Start Last Admin Trade Name Freq PRN Reason Stop Dose Admin Albuterol 2.5 mg 11/18/17 03:36 11/18/17 03:40 Proventil Neb Soln NEB 11/18/17 03:37 2.5 mg ONETIME ONE Administration Furosemide 20 mg 11/18/17 03:37 11/18/17 03:41 Lasix IVPUSH 11/18/17 03:38 20 mg ONETIME ONE Administration Methylprednisolone Sodium Succinate 125 mg 11/18/17 04:12 11/18/17 04:20 Solu-Medrol IVPUSH 11/18/17 04:13 125 mg ONETIME ONE Administration - Re-Assessments/Exams Free Text/Narrative Re-Assessment/Exam: 11/18/17 04:[address] Morales [facility] regarding patient. Due to patient status, potential for decompensation and bad weather in [place], recommend patient be admitted to our facility. stated she would be making a [facility] and the recommendation that patient be admitted locally. 11/18/17 04:49 Dr. Freire accepting of patient for further evaluation and management COPD exacerbation Departure - Departure Time of Disposition: 04:52 Disposition: Admitted As Inpatient 65 Condition: Fair Clinical Impression: COPD exacerbation, Tobacco abuse, Reflux esophagitis, Cough - Discharge Information - My Orders Last 24 Hours: My Active Orders 11/18/17 03:02 EKG Documentation Completion [RC] URGENT 11/18/17 03:15 LACTIC ACID [CHEM] Stat 11/18/17 03:36 RT Aerosol Therapy [RC] ASDIRECTED 11/18/17 04:12 Blood Culture x2 Reflex Set [OM.PC] Stat 11/18/17 04:25 CULTURE BLOOD [BC] Stat 11/18/17 04:30 CULTURE BLOOD [BC] Stat - Assessment/Plan Last 24 Hours: My Active Orders 11/18/17 03:02 EKG Documentation Completion [RC] URGENT 11/18/17 03:15 LACTIC ACID [CHEM] Stat 11/18/17 03:36 RT Aerosol Therapy [RC] ASDIRECTED 11/18/17 04:12 Blood Culture x2 Reflex Set [OM.PC] Stat 11/18/17 04:25 CULTURE BLOOD [BC] Stat 11/18/17 04:30 CULTURE BLOOD [BC] Stat
[2017-11-18] MEDS ORDERED: Albuterol 0.083% 2.5 MG/3 ML Neb Soln NEB ONE (03:36)
[2017-11-18] MEDS ORDERED: Furosemide 20 MG/2 ML VIAL IVPUSH ONE (03:37)
[2017-11-18 03:44] LABS: CHLORIDE,CL 102 mmol/L (101-111); SODIUM,NA 135 mmol/L (135-145)
[2017-11-18] MEDS ORDERED: methylPREDNISolone Sodium Succinate 125 MG/2 ML SDV IVPUSH ONE (04:12)
[2017-11-18] MEDS ORDERED: Albuterol 0.083% 2.5 MG/3 ML Neb Soln NEB PRN (06:00)
--- NOTE | 2017-11-18 06:19 | PCM.HP ---
H&P History of Present Illness - General Date of Service: 11/18/17 Admit Problem/Dx: sob - History of Present Illness Initial Comments - Free Text/Narative: The patient is a 72-year-old gentleman with a history of coronary artery disease , peripheral artery disease, paroxysmal atrial fibrillation, COPD on chronic steroid therapy. The patient presented with increased shortness of breath. He has a history of COPD and/or short of breath but in the past 2 weeks it has been worsening. This is associated with cough but very little sputum production. He started to smoke again. He has been on chronic steroids and has been gaining weight. He has mild edema. No associated chest pain. No fever or chills. No sick contact. - Related Data Allergies/Adverse Reactions: Allergies Allergy/AdvReac Type Severity Reaction Status Date / Time budesonide [From Symbicort] Allergy Numbness Verified 11/18/17 03:06 formoterol [From Symbicort] Allergy Numbness Verified 11/18/17 03:06 metoprolol Allergy Swollen Verified 11/18/17 03:06 Tongue tiotropium Allergy Cough Verified 11/18/17 03:06 [From Spiriva with HandiHaler] cholesterol pills Allergy Other Uncoded 11/18/17 03:06 Home Medications: Home Meds Hydrochlorothiazide 50 mg PO DAILY 11/08/14 [History] Verapamil [Verelan PM] 300 mg PO BEDTIME 11/08/14 [History] Levothyroxine Sodium [Synthroid] 25 mcg PO ACBREAKFAST 03/15/15 [History] Ranitidine HCl 1 tab PO BID PRN 06/23/15 [History] Clopidogrel Bisulfate [Clopidogrel] 75 mg PO DAILY 09/06/15 [History] Albuterol [Ventolin HFA] 2 puff INH Q6H PRN 05/22/16 [History] Apixaban [Eliquis] 5 mg PO BID 12/16/16 [History] Albuterol/Ipratropium [DuoNeb 3.0-0.5 MG/3 ML] 3 ml NEB Q6HRRT 06/15/17 [History ] LORazepam [Ativan] 0.5 mg PO DAILY PRN 06/15/17 [History] Prednisone [IMW: Prednisone] 10 mg PO DAILY 06/15/17 [History] Fluticasone Furoate [Flonase Sensimist] 1 spray NASBOTH DAILY 07/16/17 [History] diphenhydrAMINE HCl [Benadryl Allergy] 25 mg PO DAILY PRN 07/16/17 [History] Cholecalciferol (Vitamin D3) [Vitamin D3] 1 cap PO DAILY 11/18/17 [History] Rosuvastatin Calcium 5 mg PO BEDTIME 11/18/17 [History] Tiotropium Lynd [Spiriva Respimat] 4 gm IH DAILY 11/18/17 [History] Past Medical History HEENT History: Reports: Cataract Other HEENT History: wears glasses Cardiovascular History: Reports: High Cholesterol, Hypertension, Stents Other Cardiovascular History: 2 left leg and 1 right leg Respiratory History: Reports: COPD Gastrointestinal History: Reports: GERD Genitourinary History: Reports: None Musculoskeletal History: Reports: Arthritis Neurological History: Reports: None Psychiatric History: Reports: Anxiety Other Psychiatric History: occasional anxiety Endocrine/Metabolic History: Reports: Hypothyroidism Other Endocrine/Metabolic History: thyroid problems Hematologic History: Reports: None Immunologic History: Reports: None Oncologic (Cancer) History: Reports: None Dermatologic History: Reports: None, Other (See Below) Other Dermatologic History: dry flaky skin to heels - Infectious Disease History Infectious Disease History: Reports: Measles, Mumps - Past Surgical History HEENT Surgical History: Reports: Cataract Surgery, Other (See Below) Cardiovascular Surgical History: Reports: Coronary Artery Bypass Other Cardiovascular Surgeries/Procedures: 3 bypass Respiratory Surgical History: Reports: None Male Surgical History: Reports: None Social & Family History - Family History Family Medical History: Noncontributory - Tobacco Use Smoking Status *Q: Current Every Day Smoker Years of Tobacco use: 40 Packs/Tins Daily: 0.5 Used Tobacco, but Quit: No Second Hand Smoke Exposure: No - Caffeine Use Caffeine Use: Reports: Coffee - Alcohol Use Days Per Week of Alcohol Use: 0 - Recreational Drug Use Recreational Drug Use: No - Living Situation & Occupation Living situation: Reports: , Alone Occupation: Retired H&P Review of Systems - Review of Systems: Review Of Systems: See Below General: Denies: Fever Pulmonary: Reports: Shortness of Breath, Wheezing, Cough. Denies: Pleuritic Chest Pain, Sputum Cardiovascular: Denies: Chest Pain Gastrointestinal: Denies: Abdominal Pain Genitourinary: Denies: Dysuria Psychiatric: Denies: Confusion Exam - Exam Exam: See Below - Vital Signs Vital Signs: Last Vital Signs Temp 37.0 C 11/18/17 05:08 Pulse 73 11/18/17 05:08 Resp 20 11/18/17 05:08 BP 156/97 H 11/18/17 05:08 Pulse Ox 96 11/18/17 05:08 Weight: 111.856 kg - Exam Quality Assessment: No: Supplemental Oxygen General: Alert, Oriented HEENT: EOMI Neck: Supple Lungs: Decreased Breath Sounds, Wheezing Cardiovascular: Regular Rate, Regular Rhythm GI/Abdominal Exam: Normal Bowel Sounds, Soft, Non-Tender Extremities: Pedal Edema (trace bilateral) - Patient Data Result Diagrams: 11/18/17 03:15 11/18/17 03:15 *Q Meaningful Use (ADM) - VTE *Q VTE Criteria *Q: - Stroke *Q Stroke Criteria *Q: - AMI *Q AMI Criteria *Q: - Problem List (1) COPD exacerbation SNOMED Code(s): 957628596543865 ICD Code: J44.1 - CHRONIC OBSTRUCTIVE PULMONARY DISEASE W (ACUTE) EXACERBATION Status: Acute Current Visit: Yes Problem List Initiated/Reviewed/Updated: Yes Orders Last 24hrs: Active Orders 24 hr Category Date Time Status Glucose [Blood Glucose Check, Bedside] [RC] QIDACANDBED Care 11/18/17 06:06 Active RT Aerosol Therapy [RC] ASDIRECTED Care 11/18/17 06:00 Active RT Aerosol Therapy [RC] ASDIRECTED Care 11/18/17 06:01 Active BASIC METABOLIC PANEL,BMP [CHEM] AM Lab 11/19/17 05:15 Ordered CBC WITH AUTO DIFF [HEME] AM Lab 11/19/17 05:15 Ordered CULTURE SPUTUM + SMEAR [RM] Routine Lab 11/18/17 05:59 Ordered INFLUENZA A+B AG SCREEN [RM] Routine Lab 11/18/17 05:58 Ordered Albuterol [Proventil Neb Soln] Med 11/18/17 06:00 Active 2.5 mg NEB Q2H PRN Albuterol/Ipratropium [DuoNeb 3.0-0.5 MG/3 ML] Med 11/18/17 07:00 Active 3 ml NEB Q6HRRT Apixaban [Eliquis] Med 11/18/17 09:00 Ordered 5 mg PO BID Azithromycin [Zithromax] 500 mg Med 11/18/17 06:15 Active Sodium Chloride 0.9% [Normal Saline] 250 ml IV Q24H Budesonide [Pulmicort] Med 11/18/17 07:00 Active 0.5 mg NEB BIDRT Clopidogrel [Plavix] Med 11/18/17 09:00 Ordered 75 mg PO DAILY Fluticasone Furoate [Flonase Sensimist] Med 11/18/17 09:00 Ordered 1 spray NASBOTH DAILY Hydrochlorothiazide Med 11/18/17 09:00 Ordered 50 mg PO DAILY Insulin Aspart [NovoLOG] Med 11/18/17 08:00 Active See Protocol SUBCUT TIDAC LORazepam [Ativan] Med 11/18/17 06:08 Ordered 0.5 mg PO DAILY PRN Levothyroxine Med 11/19/17 06:00 Ordered 25 mcg PO ACBREAKFAST Nicotine [Habitrol] Med 11/18/17 09:00 Active 14 mg TRDERM DAILY Potassium Chloride [Klor-Con 10] Med 11/18/17 08:00 Active 40 meq PO BIDMEALS Ranitidine HCl [Ranitidine HCl] Med 11/18/17 06:08 Ordered 1 tab PO BID PRN Rosuvastatin [Crestor] Med 11/18/17 21:00 Ordered 5 mg PO BEDTIME Verapamil [Verelan PM] Med 11/18/17 21:00 Ordered 300 mg PO BEDTIME cefTRIAXone [Rocephin] Med 11/18/17 06:15 Active 1 gm IVPUSH Q24H diphenhydrAMINE [Benadryl] Med 11/18/17 06:08 Ordered 25 mg PO DAILY PRN methylPREDNISolone Sod Succ [Solu-MEDROL] Med 11/18/17 06:00 Ordered 40 mg IVPUSH Q8H Medication Orders Albuterol (Proventil Neb Soln) 2.5 mg NEB Q2H PRN PRN Reason: sob Albuterol/Ipratropium (Duoneb 3.0-0.5 Mg/3 Ml) 3 ml NEB Q6HRRT [facility] Budesonide (Pulmicort) 0.5 mg NEB BIDRT [facility] Ceftriaxone Sodium (Rocephin) 1 gm IVPUSH Q24H [facility] Clopidogrel Bisulfate (Plavix) 75 mg PO DAILY [facility] Diphenhydramine HCl (Benadryl) 25 mg PO DAILY PRN PRN Reason: Allergies Hydrochlorothiazide (Hydrochlorothiazide) 50 mg PO DAILY [facility] Azithromycin 500 mg/ Sodium (Chloride) 250 mls @ 250 mls/hr IV Q24H [facility] Insulin Aspart (Novolog) 0 unit SUBCUT TIDAC ANANT PRN Reason: Protocol Levothyroxine Sodium (Levothyroxine) 25 mcg PO ACBREAKFAST [facility] Lorazepam (Ativan) 0.5 mg PO DAILY PRN PRN Reason: Anxiety Methylprednisolone Sodium Succinate (Solu-Medrol) 40 mg IVPUSH Q8H [facility] Nicotine (Habitrol) 14 mg TRDERM DAILY [facility] Non-Formulary Medication (Apixaban [Eliquis]) 5 mg PO BID [facility] Non-Formulary Medication (Fluticasone Furoate [Flonase Sensimist]) 1 spray NASBOTH DAILY [facility] Non-Formulary Medication (Ranitidine Hcl [Ranitidine Hcl]) 1 tab PO BID PRN PRN Reason: stomach Non-Formulary Medication (Verapamil [Verelan Pm]) 300 mg PO BEDTIME [facility] Potassium Chloride (Klor-Con 10) 40 meq PO BIDMEALS [facility] Stop: 11/18/17 18:01 Rosuvastatin Calcium (Crestor) 5 mg PO BEDTIME [facility] Assessment/Plan Comment:: The patient is a 72-year-old with a history of atrial fibrillation, COPD. Started to smoke. Gained weight. #1 acute COPD exacerbation Treat the patient with IV steroids, inhaled steroids Use DuoNeb scheduled and when necessary For now hold on long acting inhalers #2 for possible infection Will send sputum culture, influenza swab Empirically treat with azithromycin, Rocephin #3 trace edema present Received IV Lasix Replace hypokalemia Follow symptoms and electrolytes #4 paroxysmal atrial fibrillation Continue calcium channel liv Continue anticoagulation with apixaban #5 coronary artery disease Treat with Plavix, calcium channel liv
[2017-11-18] MEDS ORDERED: Ondansetron 4 MG Tab.DIS PO PRN (06:24)
[2017-11-18] MEDS ORDERED: Zolpidem 5 MG Tab PO PRN (06:24)
[2017-11-18] MEDS: Levothyroxine 25 MCG Tab PO SCH (06:38)
[2017-11-18] MEDS: cefTRIAXone 1 GM Vial IVPUSH SCH (06:38)
[2017-11-18] MEDS: Azithromycin 500 MG in Sodium Chloride 0.9% 250 ML IV SCH (06:38)
[2017-11-18] MEDS: Budesonide 0.5 MG/2 ML Neb Susp NEB SCH ×2 (07:42→18:05)
[2017-11-18] MEDS: Albuterol/Ipratropium 3.0-0.5 MG/3 ML Neb Soln NEB SCH ×3 (07:42→18:05)
[2017-11-18] MEDS ORDERED: Insulin Aspart 100 Units/ML 3 ML Pen SUBCUT SCH (08:00)
[2017-11-18] MEDS: Hydrochlorothiazide 25 MG Tab PO SCH (08:26)
[2017-11-18] MEDS: Clopidogrel 75 MG Tab PO SCH (08:26)
[2017-11-18] MEDS: Potassium Chloride 10 MEQ Tab.ER PO SCH ×2 (08:26→17:55)
[2017-11-18] MEDS: Nicotine 14 MG/24 Hr Patch TRDERM SCH (08:27)
[2017-11-18] MEDS: methylPREDNISolone Sodium Succinate 40 MG/1 ML SDV IVPUSH SCH ×2 (12:49→20:47)
[2017-11-18] MEDS: APIXABAN 5 MG PO SCH ×2 (14:39→21:25)
[2017-11-18] MEDS: Fluticasone Propionate Nasal Spray 16 GM Bottle NASBOTH SCH (14:39)
--- NOTE | 2017-11-18 15:00 | EKG ---
11/18/2017 - MAU CARLTON - TIME: 3:06. EKG per my reading, shows sinus rhythm with right bundle-branch block. Inferior ST inversion. [facility] /[id number]
[2017-11-18] MEDS: Acetaminophen 325 MG Tab PO PRN (19:15)
[2017-11-18] MEDS: Sodium Chloride 0.9% 10 ML Syringe FLUSH PRN (20:47)
[2017-11-18] MEDS: Rosuvastatin 10 MG Tab PO SCH (20:50)
[2017-11-18] MEDS: VERAPAMIL 300 MG PO SCH (20:51)
[2017-11-18] MEDS: Famotidine 20 MG Tab PO PRN (21:04)
[2017-11-18] MEDS: diphenhydrAMINE 25 MG Tab PO PRN (21:04)
[2017-11-18] MEDS: guaiFENesin/Dextromethorphan 100-10 MG/5 ML Soln 5 ML Cup PO PRN (21:04)
[2017-11-18] MEDS: LORazepam 0.5 MG Tab PO PRN (21:18)
[2017-11-19] MEDS: Albuterol/Ipratropium 3.0-0.5 MG/3 ML Neb Soln NEB SCH ×4 (01:28→20:43)
[2017-11-19] MEDS: Sodium Chloride 0.9% 10 ML Syringe FLUSH PRN ×3 (04:07→17:10)
[2017-11-19] MEDS: methylPREDNISolone Sodium Succinate 40 MG/1 ML SDV IVPUSH SCH ×2 (04:08→17:09)
[2017-11-19] MEDS: Levothyroxine 25 MCG Tab PO SCH (05:46)
[2017-11-19] MEDS: cefTRIAXone 1 GM Vial IVPUSH SCH (05:48)
[2017-11-19] MEDS: Azithromycin 500 MG in Sodium Chloride 0.9% 250 ML IV SCH (05:54)
[2017-11-19] MEDS: Budesonide 0.5 MG/2 ML Neb Susp NEB SCH ×2 (07:19→18:26)
[2017-11-19] MEDS: Fluticasone Propionate Nasal Spray 16 GM Bottle NASBOTH SCH (08:55)
[2017-11-19] MEDS: Nicotine 14 MG/24 Hr Patch TRDERM SCH (08:55)
[2017-11-19] MEDS: Clopidogrel 75 MG Tab PO SCH (08:58)
[2017-11-19] MEDS: APIXABAN 5 MG PO SCH ×2 (08:58→20:42)
[2017-11-19] MEDS: Hydrochlorothiazide 25 MG Tab PO SCH (08:58)
[2017-11-19] MEDS ORDERED: Furosemide 20 MG Tab PO ONE (09:54)
[2017-11-19] MEDS ORDERED: Potassium Chloride 10 MEQ Tab.ER PO ONE (09:54)
--- NOTE | 2017-11-19 09:54 | PCM.PN ---
- General Info Date of Service: 11/19/17 Subjective Update: Feeling well, but feeling a little more shaky. Has nonproductive cough. No associated chest pain. Mild to moderate shortness of breath that has improved since admission. Functional Status: Reports: Pain Controlled - Review of Systems General: Reports: Weakness. Denies: Fever Pulmonary: Reports: Shortness of Breath Cardiovascular: Denies: Chest Pain Gastrointestinal: Denies: Abdominal Pain Genitourinary: Denies: Dysuria - Patient Data Vitals - Most Recent: Last Vital Signs Temp 36.7 C 11/19/17 07:00 Pulse 77 11/19/17 07:00 Resp 20 11/19/17 07:00 BP 121/74 11/19/17 07:00 Pulse Ox 95 11/19/17 07:00 Weight - Most Recent: 111.947 kg I&O - Last 24 Hours: Intake & Output 11/18/17 11/19/17 11/19/17 22:59 06:59 14:59 Intake Total 400 200 360 Output Total 200 250 200 Balance 200 -50 160 Lab Results Last 24 Hours: Laboratory Results - last 24 hr 11/19/17 11/19/17 Range/Units 06:00 06:00 WBC 16.9 H (5.0-10.0) 10^3/uL RBC 5.10 (4.6-6.2) 10^6/uL Hgb 16.3 (14.0-18.0) g/dL Hct 47.3 (40.0-54.0) % MCV 92.7 (80-100) fL MCH 32.0 (27.0-34.0) pg MCHC 34.5 (33.0-35.0) g/dL Plt Count 236 (150-450) 10^3/uL Neut % (Auto) 89.9 H (42.2-75.2) % Lymph % (Auto) 7.8 L (20.5-50.1) % [place] % (Auto) 2.2 (2-8) % Eos % (Auto) 0.0 L (1.0-3.0) % Baso % (Auto) 0.1 (0.0-1.0) % Sodium 136 (135-145) mmol/L Potassium 4.8 D (3.6-5.0) mmol/L Chloride 100 L (101-111) mmol/L Carbon Dioxide 24.0 (21.0-31.0) mmol/L Anion Gap 16.8 BUN 33 H (7-18) mg/dL Creatinine 1.2 (0.6-1.3) mg/dL Est Cr Clr Drug Dosing 56.61 mL/min Estimated GFR (MDRD) 59 Glucose 147 H (74-105) mg/dL Calcium 9.3 (8.4-10.2) mg/dl Med Orders - Current: Current Medications Acetaminophen (Tylenol) 650 mg PO Q4H PRN PRN Reason: Pain (Mild 1-3)/fever Last Admin: 11/18/17 19:15 Dose: 650 mg Albuterol (Proventil Neb Soln) 2.5 mg NEB Q2H PRN PRN Reason: sob Albuterol/Ipratropium (Duoneb 3.0-0.5 Mg/3 Ml) 3 ml NEB TID [facility] Budesonide (Pulmicort) 0.5 mg NEB BIDRT [facility] Last Admin: 11/19/17 07:19 Dose: 0.5 mg Ceftriaxone Sodium (Rocephin) 1 gm IVPUSH Q24H [facility] Last Admin: 11/19/17 05:48 Dose: 1 gm Clopidogrel Bisulfate (Plavix) 75 mg PO DAILY [facility] Last Admin: 11/19/17 08:58 Dose: 75 mg Diphenhydramine HCl (Benadryl) 25 mg PO DAILY PRN PRN Reason: Allergies Last Admin: 11/18/17 21:04 Dose: 25 mg Famotidine (Pepcid) 20 mg PO BID PRN PRN Reason: STOMACH Last Admin: 11/18/17 21:04 Dose: 20 mg Fluticasone Propionate (Flonase) 0 gm NASBOTH DAILY [facility] Last Admin: 11/19/17 08:55 Dose: Not Given Guaifenesin/Phenylephrine HCl (Robitussin Dm) 10 ml PO Q6H PRN PRN Reason: Cough Last Admin: 11/18/17 21:04 Dose: 10 ml Hydrochlorothiazide (Hydrochlorothiazide) 50 mg PO DAILY [facility] Last Admin: 11/19/17 08:58 Dose: 50 mg Azithromycin 500 mg/ Sodium (Chloride) 250 mls @ 250 mls/hr IV Q24H [facility] Last Admin: 11/19/17 05:54 Dose: 75 mls/hr Levothyroxine Sodium (Levothyroxine) 25 mcg PO ACBREAKFAST [facility] Last Admin: 11/19/17 05:46 Dose: 25 mcg Lorazepam (Ativan) 0.5 mg PO DAILY PRN PRN Reason: Anxiety Last Admin: 11/18/17 21:18 Dose: 0.5 mg Methylprednisolone Sodium Succinate (Solu-Medrol) 40 mg IVPUSH Q12H [facility] Nicotine (Habitrol) 14 mg TRDERM DAILY [facility] Last Admin: 11/19/17 08:55 Dose: 14 mg Ondansetron HCl (Zofran Odt) 4 mg PO Q4H PRN PRN Reason: nausea, able to take PO Apixaban [Eliquis] 5 (MgPt Own Med ) 0 each PO BID [facility] Last Admin: 11/19/17 08:58 Dose: 1 each Verapamil [Verelan Pm] 300 MgPt's Own Med 0 each PO BEDTIME [facility] Last Admin: 11/18/17 20:51 Dose: 1 each Rosuvastatin Calcium (Crestor) 5 mg PO BEDTIME [facility] Last Admin: 11/18/17 20:50 Dose: 5 mg Sodium Chloride (Saline Flush) 10 ml FLUSH ASDIRECTED PRN PRN Reason: Keep Vein Open Last Admin: 11/19/17 05:47 Dose: 10 ml Zolpidem Tartrate (Ambien) 5 mg PO BEDTIME PRN PRN Reason: Sleep Discontinued Medications Albuterol (Proventil Neb Soln) 2.5 mg NEB ONETIME ONE Stop: 11/18/17 03:37 Last Admin: 11/18/17 03:40 Dose: 2.5 mg Albuterol/Ipratropium (Duoneb 3.0-0.5 Mg/3 Ml) 3 ml NEB Q6HRRT [facility] Last Admin: 11/19/17 07:19 Dose: 3 ml Furosemide (Lasix) 20 mg IVPUSH ONETIME ONE Stop: 11/18/17 03:38 Last Admin: 11/18/17 03:41 Dose: 20 mg Insulin Aspart (Novolog) 0 unit SUBCUT TIDAC [facility] PRN Reason: Protocol Methylprednisolone Sodium Succinate (Solu-Medrol) 125 mg IVPUSH ONETIME ONE Stop: 02/23/18 04:13 Last Admin: 11/18/17 04:20 Dose: 125 mg Methylprednisolone Sodium Succinate (Solu-Medrol) 40 mg IVPUSH Q8H [facility] Last Admin: 11/19/17 04:08 Dose: 40 mg Potassium Chloride (Klor-Con 10) 40 meq PO BIDMEALS [facility] Stop: 11/18/17 18:01 Last Admin: 11/18/17 17:55 Dose: 40 meq - Exam General: Alert, Oriented Neck: Supple Lungs: Normal Respiratory Effort, Decreased Breath Sounds. No: Rhonchi, Wheezing Cardiovascular: Regular Rate, Regular Rhythm GI/Abdominal Exam: Normal Bowel Sounds, Soft, Non-Tender Extremities: Pedal Edema (Trace) - Problem List & Annotations (1) COPD exacerbation SNOMED Code(s): 743742050248859 Code(s): J44.1 - CHRONIC OBSTRUCTIVE PULMONARY DISEASE W (ACUTE) EXACERBATION Status: Acute Current Visit: Yes - Problem List Review Problem List Initiated/Reviewed/Updated: Yes - My Orders Last 24 Hours: My Active Orders 11/18/17 18:00 Dextromethorphan/guaiFENesin [Robitussin DM] 10 ml PO Q6H PRN 11/19/17 14:00 Albuterol/Ipratropium [DuoNeb 3.0-0.5 MG/3 ML] 3 ml NEB TID 11/19/17 18:00 methylPREDNISolone Sod Succ [Solu-MEDROL] 40 mg IVPUSH Q12H - Plan Plan:: The patient is a 72-year-old with a history of atrial fibrillation, COPD. Started to smoke. Gained weight. #1 acute COPD exacerbation Treat the patient with IV steroids - taper dose cont inhaled steroids Use DuoNeb scheduled - decrease dose re: shakiness - and when necessary For now hold on long acting inhalers #2 for possible infection pending sputum culture Empirically treat with azithromycin, Rocephin #3 trace edema present Received IV Lasix Replaced hypokalemia Follow symptoms #4 paroxysmal atrial fibrillation Continue calcium channel liv Continue anticoagulation with apixaban #5 coronary artery disease Treat with Plavix, calcium channel liv
[2017-11-19] MEDS: Nicotine 21 MG/24 Hr Patch TRDERM SCH (10:47)
[2017-11-19] MEDS: Famotidine 20 MG Tab PO PRN (12:44)
[2017-11-19] MEDS ORDERED: Calcium Carbonate 500 MG Tab.Chew PO PRN (13:24)
[2017-11-19] MEDS: guaiFENesin/Dextromethorphan 100-10 MG/5 ML Soln 5 ML Cup PO PRN (14:59)
[2017-11-19] MEDS ORDERED: Benzocaine/Cetylpyridinium/Menthol Lozenge MUCMEM PRN (18:04)
[2017-11-19] MEDS: Rosuvastatin 10 MG Tab PO SCH (20:36)
[2017-11-19] MEDS: VERAPAMIL 300 MG PO SCH (20:41)
[2017-11-19] MEDS: diphenhydrAMINE 25 MG Tab PO PRN (20:42)
[2017-11-19] MEDS: LORazepam 0.5 MG Tab PO PRN (20:43)
[2017-11-19] MEDS: Acetaminophen 325 MG Tab PO PRN (20:52)
[2017-11-20] MEDS: Sodium Chloride 0.9% 10 ML Syringe FLUSH PRN (05:40)
[2017-11-20] MEDS: methylPREDNISolone Sodium Succinate 40 MG/1 ML SDV IVPUSH SCH (05:41)
[2017-11-20] MEDS: cefTRIAXone 1 GM Vial IVPUSH SCH (05:44)
[2017-11-20] MEDS: Levothyroxine 25 MCG Tab PO SCH (05:50)
[2017-11-20] MEDS: Azithromycin 500 MG in Sodium Chloride 0.9% 250 ML IV SCH (05:50)
[2017-11-20] MEDS: Budesonide 0.5 MG/2 ML Neb Susp NEB SCH (07:20)
[2017-11-20] MEDS: Albuterol/Ipratropium 3.0-0.5 MG/3 ML Neb Soln NEB SCH (07:20)
[2017-11-20 07:24] VITALS: BP 148/88
[2017-11-20] MEDS: Fluticasone Propionate Nasal Spray 16 GM Bottle NASBOTH SCH (08:40)
[2017-11-20] MEDS: Nicotine 21 MG/24 Hr Patch TRDERM SCH (08:44)
[2017-11-20] MEDS: Hydrochlorothiazide 25 MG Tab PO SCH (08:46)
[2017-11-20] MEDS: Clopidogrel 75 MG Tab PO SCH (08:47)
[2017-11-20] MEDS: APIXABAN 5 MG PO SCH (08:47)
--- NOTE | 2017-11-20 10:59 | PCM.DCSUM1 ---
Discharge Summary - Hospital Course Free Text/Narrative:: The patient is a 72-year-old with a history of atrial fibrillation, COPD. Started to smoke. Gained weight. #1 acute COPD exacerbation Treat the patient with steroids - taper dose cont inhaled steroids Use DuoNeb when necessary resume spiriva #2 for possible infection pending sputum culture Empirically treated with azithromycin, Rocephin will discharge on levofloxacin #3 paroxysmal atrial fibrillation Continue calcium channel liv Continue anticoagulation with apixaban #4 coronary artery disease Treat with Plavix, calcium channel liv - Discharge Data Discharge Date: 11/20/17 Discharge Disposition: Home, Self-Care 01 Condition: Good - Discharge Diagnosis/Problem(s) (1) COPD exacerbation SNOMED Code(s): 517611168454257 ICD Code: J44.1 - CHRONIC OBSTRUCTIVE PULMONARY DISEASE W (ACUTE) EXACERBATION Status: Acute Current Visit: Yes - Patient Instructions Diet: Heart Healthy Diet Activity: As Tolerated - Discharge Plan Prescriptions/Med Rec: Albuterol/Ipratropium [DuoNeb 3.0-0.5 MG/3 ML] 3 ml NEB TID@0700,1800,2100 PRN # 90 neb PRN Reason: sob Budesonide [Pulmicort] 0.5 mg NEB BIDRT #60 neb Levofloxacin 500 mg PO DAILY #7 tablet Prednisone [IJD: Prednisone] See Taper PO DAILY #30 tab Home Medications: Home Meds Hydrochlorothiazide 50 mg PO DAILY 11/08/14 [History] Verapamil [Verelan PM] 300 mg PO BEDTIME 11/08/14 [History] Levothyroxine Sodium [Synthroid] 25 mcg PO ACBREAKFAST 03/15/15 [History] Ranitidine HCl 1 tab PO BID PRN 06/23/15 [History] Clopidogrel Bisulfate [Clopidogrel] 75 mg PO DAILY 09/06/15 [History] Albuterol [Ventolin HFA] 2 puff INH Q6H PRN 05/22/16 [History] Apixaban [Eliquis] 5 mg PO BID 12/16/16 [History] LORazepam [Ativan] 0.5 mg PO DAILY PRN 06/15/17 [History] Fluticasone Furoate [Flonase Sensimist] 1 spray NASBOTH DAILY 07/16/17 [History] diphenhydrAMINE HCl [Benadryl Allergy] 25 mg PO DAILY PRN 07/16/17 [History] Cholecalciferol (Vitamin D3) [Vitamin D3] 1 cap PO DAILY 11/18/17 [History] Rosuvastatin Calcium 5 mg PO BEDTIME 11/18/17 [History] Tiotropium [place] [Spiriva Respimat] 4 gm IH DAILY 11/18/17 [History] Albuterol/Ipratropium [DuoNeb 3.0-0.5 MG/3 ML] 3 ml NEB TID@0700,1800,2100 PRN # 90 neb 11/20/17 [Rx] Budesonide [Pulmicort] 0.5 mg NEB BIDRT #60 neb 11/20/17 [Rx] Levofloxacin 500 mg PO DAILY #7 tablet 11/20/17 [Rx] Prednisone [IJD: Prednisone] See Taper PO DAILY #30 tab 11/20/17 [Rx] Patient Handouts: Albuterol; Ipratropium respiratory inhalation spray ( Combivent Respimat), Albuterol inhalation aerosol, Chronic Obstructive Pulmonary Disease, [id number], Tiotropium inhalation powder, Nicotine skin patches, Prednisone tablets Referrals: PCP,Unobtain [Ordering Only Provider] - ([facility] - Discharge Summary/Plan Comment DC Time >30 min.: No - General Info Date of Service: 11/20/17 Admission Dx/Problem (Free Text: sob Subjective Update: Feeling well, has less cough. No associated chest pain. Mild shortness of breath that has improved since admission. Functional Status: Reports: Pain Controlled, Tolerating Diet - Review of Systems General: Denies: Fever Pulmonary: Reports: Shortness of Breath (Mild). Denies: Cough Cardiovascular: Denies: Chest Pain Genitourinary: Denies: Dysuria Psychiatric: Denies: Confusion - Patient Data Vitals - Most Recent: Last Vital Signs Temp 36.7 C 11/20/17 07:00 Pulse 77 11/20/17 07:00 Resp 20 11/20/17 07:00 BP 148/88 H 11/20/17 07:00 Pulse Ox 94 L 11/20/17 07:00 Weight - Most Recent: 111.402 kg I&O - Last 24 hours: Intake & Output 11/19/17 11/20/17 11/20/17 22:59 06:59 14:59 Intake Total 510 275 491 Output Total 200 1500 250 Balance 310 1225 241 Med Orders - Current: Current Medications Acetaminophen (Tylenol) 650 mg PO Q4H PRN PRN Reason: Pain (Mild 1-3)/fever Last Admin: 11/19/17 20:52 Dose: 650 mg Albuterol (Proventil Neb Soln) 2.5 mg NEB Q2H PRN PRN Reason: sob Albuterol/Ipratropium (Duoneb 3.0-0.5 Mg/3 Ml) 3 ml NEB TID@0700,1800,2100 [facility] Last Admin: 11/20/17 07:20 Dose: 3 ml Benzocaine/Menthol (Cepacol Sore Throat) 1 lozenge MUCMEM Q6H PRN PRN Reason: Cough Last Admin: 11/19/17 21:53 Dose: 1 lozenge Budesonide (Pulmicort) 0.5 mg NEB BIDRT [facility] Last Admin: 11/20/17 07:20 Dose: 0.5 mg Calcium Carbonate/Glycine (Tums) 500 mg PO Q6H PRN PRN Reason: Heartburn Last Admin: 11/19/17 17:08 Dose: 500 mg Ceftriaxone Sodium (Rocephin) 1 gm IVPUSH Q24H [facility] Last Admin: 11/20/17 05:44 Dose: 1 gm Clopidogrel Bisulfate (Plavix) 75 mg PO DAILY [facility] Last Admin: 11/20/17 08:47 Dose: 75 mg Diphenhydramine HCl (Benadryl) 25 mg PO DAILY PRN PRN Reason: Allergies Last Admin: 11/19/17 20:42 Dose: 25 mg Famotidine (Pepcid) 20 mg PO BID PRN PRN Reason: STOMACH Last Admin: 11/19/17 12:44 Dose: 20 mg Fluticasone Propionate (Flonase) 0 gm NASBOTH DAILY [facility] Last Admin: 11/20/17 08:40 Dose: 1 spray Guaifenesin/Phenylephrine HCl (Robitussin Dm) 10 ml PO Q6H PRN PRN Reason: Cough Last Admin: 11/19/17 14:59 Dose: 10 ml Hydrochlorothiazide (Hydrochlorothiazide) 50 mg PO DAILY [facility] Last Admin: 11/20/17 08:46 Dose: 50 mg Azithromycin 500 mg/ Sodium (Chloride) 250 mls @ 250 mls/hr IV Q24H [facility] Last Infusion: 11/20/17 09:17 Dose: Infused Levothyroxine Sodium (Levothyroxine) 25 mcg PO ACBREAKFAST [facility] Last Admin: 11/20/17 05:50 Dose: 25 mcg Lorazepam (Ativan) 0.5 mg PO DAILY PRN PRN Reason: Anxiety Last Admin: 11/19/17 20:43 Dose: 0.5 mg Methylprednisolone Sodium Succinate (Solu-Medrol) 40 mg IVPUSH Q12H [facility] Last Admin: 11/20/17 05:41 Dose: 40 mg Miscellaneous Information (Remove Patch) 1 ea TRDERM DAILY [facility] Last Admin: 11/20/17 08:43 Dose: 1 ea Nicotine (Habitrol) 21 mg TRDERM DAILY [facility] Last Admin: 11/20/17 08:44 Dose: 21 mg Ondansetron HCl (Zofran Odt) 4 mg PO Q4H PRN PRN Reason: nausea, able to take PO Apixaban [Eliquis] 5 (MgPt Own Med ) 0 each PO BID [facility] Last Admin: 11/20/17 08:47 Dose: 1 each Verapamil [Verelan Pm] 300 MgPt's Own Med 0 each PO BEDTIME [facility] Last Admin: 11/19/17 20:41 Dose: 1 each Rosuvastatin Calcium (Crestor) 5 mg PO BEDTIME [facility] Last Admin: 11/19/17 20:36 Dose: 5 mg Sodium Chloride (Saline Flush) 10 ml FLUSH ASDIRECTED PRN PRN Reason: Keep Vein Open Last Admin: 11/20/17 05:40 Dose: 10 ml Zolpidem Tartrate (Ambien) 5 mg PO BEDTIME PRN PRN Reason: Sleep Discontinued Medications Albuterol (Proventil Neb Soln) 2.5 mg NEB ONETIME ONE Stop: 11/18/17 03:37 Last Admin: 11/18/17 03:40 Dose: 2.5 mg Albuterol/Ipratropium (Duoneb 3.0-0.5 Mg/3 Ml) 3 ml NEB Q6HRRT [facility] Last Admin: 11/19/17 07:19 Dose: 3 ml Furosemide (Lasix) 20 mg IVPUSH ONETIME ONE Stop: 11/18/17 03:38 Last Admin: 11/18/17 03:41 Dose: 20 mg Furosemide (Lasix) 20 mg PO ONETIME ONE Stop: 11/19/17 09:55 Last Admin: 11/19/17 10:46 Dose: 20 mg Insulin Aspart (Novolog) 0 unit SUBCUT TIDAC [facility] PRN Reason: Protocol Methylprednisolone Sodium Succinate (Solu-Medrol) 125 mg IVPUSH ONETIME ONE Stop: 11/18/17 04:13 Last Admin: 11/18/17 04:20 Dose: 125 mg Methylprednisolone Sodium Succinate (Solu-Medrol) 40 mg IVPUSH Q8H [facility] Last Admin: 11/19/17 04:08 Dose: 40 mg Nicotine (Habitrol) 14 mg TRDERM DAILY [facility] Last Admin: 11/19/17 08:55 Dose: 14 mg Potassium Chloride (Klor-Con 10) 40 meq PO BIDMEALS [facility] Stop: 11/18/17 18:01 Last Admin: 11/18/17 17:55 Dose: 40 meq Potassium Chloride (Klor-Con 10) 20 meq PO ONETIME ONE Stop: 11/19/17 09:55 Last Admin: 11/19/17 10:45 Dose: 20 meq - Exam General: Reports: Alert, Oriented Neck: Reports: Supple Lungs: Reports: Clear to Auscultation, Normal Respiratory Effort. Denies: Rhonchi, Wheezing Cardiovascular: Reports: Irregular Rhythm GI/Abdominal Exam: Normal Bowel Sounds, Soft, Non-Tender Extremities: No Pedal Edema Skin: Reports: Warm, Dry Neurological: Reports: No New Focal Deficit, Other (Mild bilateral upper extremity tremor) Psy/Mental Status: Reports: Alert, Normal Affect, Normal Mood *Q Meaningful Use (DIS) - VTE *Q VTE Criteria *Q: - Stroke *Q Stroke Criteria *Q: - AMI *Q AMI Criteria *Q:
== END 2017-11-20 11:30 | disposition home or self-care (01) | DRG 191 ==
LOC: DL.ED 02:54 → UNDOADMIN 04:52 → DL.MS 04:52
PROVIDERS: ADMIT Internal Medicine; ATTEND Internal Medicine
DX: J44.1 Chronic obstructive pulmonary disease with (acute) exacerbation (principal); I25.810 Atherosclerosis of coronary artery bypass graft(s) without angina pectoris; K21.9 Gastro-esophageal reflux disease without esophagitis; Z95.1 Presence of aortocoronary bypass graft; I48.0 Paroxysmal atrial fibrillation; Z79.01 Long term (current) use of anticoagulants; R60.9 Edema, unspecified; I10 Essential (primary) hypertension; Z79.810 Long term (current) use of selective estrogen receptor modulators (SERMs); F17.200 Nicotine dependence, unspecified, uncomplicated; M19.90 Unspecified osteoarthritis, unspecified site; F41.9 Anxiety disorder, unspecified; E03.9 Hypothyroidism, unspecified; Z88.8 Allergy status to other drugs, medicaments and biological substances; Z79.02 Long term (current) use of antithrombotics/antiplatelets; Z79.52 Long term (current) use of systemic steroids; Z79.899 Other long term (current) drug therapy
CPT/HCPCS: 36415; 71045; 80048; 80053; 81001; 82553; 83605; 83880; 84484; 85025; 85610; 87040; 87070; 87205; 93005; 93010; 94010; 94640; 94667; 96374; 96375; 99285; A9270-GY; J0456; J0696; J1940; J2920; J2930; J7050; J7620-GY

== ENCOUNTER 2018-05-20 10:49 | Emergency (ER) | payer OTHER, MEDICARE, MEDICAID ==
[2018-05-20] MEDS ORDERED: Albuterol 0.021% 0.63 MG/3 ML Neb Soln NEB ONE (10:54)
[2018-05-20] MEDS ORDERED: Albuterol 0.083% 2.5 MG/3 ML Neb Soln NEB ONE (11:18)
--- NOTE | 2018-05-20 11:31 | CR ---
Clinical history: 72-year-old male in the emergency department with chest pain. Interpretation: No acute new cardiopulmonary abnormality identified in the interval since December 13 exam i.e. no interval change except for differences in film technique (AP versus PA). Sternotomy wires, chronic pleural parenchymal scarring left base and some patchy bibasilar atelectasi s/fibrosis. Normal cardiac silhouette without cephalization of flow, new signs of alveolar edema or dependent ple ural fluid accumulation. No new lung mass, hilar lymphadenopathy or focal lobar pneumonia. No pneumothorax.
[2018-05-20 11:34] LABS: ANION GAP 11.2; CHLORIDE,CL 101 mmol/L (101-111); SODIUM,NA 135 mmol/L (135-145)
[2018-05-20] MEDS ORDERED: GI Cocktail Oral Solution 30 ML PO ONE (11:56)
[2018-05-20] MEDS ORDERED: Morphine 2 MG/ML Syringe IVPUSH ONE (13:02)
[2018-05-20 14:05] VITALS: BP 123/74
--- NOTE | 2018-05-20 15:50 | EDM.PDOC ---
Scribed by Merlene Arizmendi 05/20/18 1851 for Ray Moe PA ED HPI GENERAL MEDICAL PROBLEM - General Chief Complaint: Chest Pain Stated Complaint: CHEST TIGHTNESS TO BACK Time Seen by Provider: 05/20/18 11:15 Source of Information: Reports: Patient, RN, RN Notes Reviewed History Limitations: Reports: No Limitations - History of Present Illness INITIAL COMMENTS - FREE TEXT/NARRATIVE: Patient is a 72-year-old male who had chest pain that started at 0830 this morning. He described it as "tightness across chest". His pain is mostly gone now. He is uncomfortable now with questionable burning. Patient states he was up at 0230 and went back to bed at 0330. He used his inhaler (Combivent) as he was coughing and then used his Albuterol. Onset: Today Duration: Constant Location: Reports: Chest Quality: Reports: Ache Severity: Moderate Improves with: Reports: None Worsens with: Reports: None Associated Symptoms: Reports: No Other Symptoms - Related Data Allergies Allergy/AdvReac Type Severity Reaction Status Date / Time formoterol [From Symbicort] Allergy Numbness Verified 11/18/17 03:06 metoprolol Allergy Swollen Verified 11/18/17 03:06 Tongue tiotropium Allergy Cough Verified 11/18/17 03:06 [From Spiriva with HandiHaler] cholesterol pills Allergy Other Uncoded 11/18/17 03:06 Home Meds: Home Meds Verapamil [Verelan PM] 300 mg PO BEDTIME 11/08/14 [History] hydroCHLOROthiazide [Hydrochlorothiazide] 50 mg PO DAILY 11/08/14 [History] Levothyroxine Sodium [Synthroid] 25 mcg PO ACBREAKFAST 03/15/15 [History] Ranitidine HCl 1 tab PO BID PRN 06/23/15 [History] Clopidogrel Bisulfate [Clopidogrel] 75 mg PO DAILY 09/06/15 [History] Albuterol [Ventolin HFA] 2 puff INH Q6H PRN 05/22/16 [History] Apixaban [Eliquis] 5 mg PO BID 12/16/16 [History] LORazepam [Ativan] 0.5 mg PO DAILY PRN 06/15/17 [History] Fluticasone Furoate [Flonase Sensimist] 1 spray NASBOTH DAILY 07/16/17 [History] diphenhydrAMINE HCl [Benadryl Allergy] 25 mg PO DAILY PRN 07/16/17 [History] Cholecalciferol (Vitamin D3) [Vitamin D3] 1 cap PO DAILY 11/18/17 [History] Rosuvastatin Calcium 5 mg PO BEDTIME 11/18/17 [History] Tiotropium [place] [Spiriva Respimat] 4 gm IH DAILY 11/18/17 [History] Albuterol/Ipratropium [DuoNeb 3.0-0.5 MG/3 ML] 3 ml NEB TID@0700,1800,2100 PRN # 90 neb 11/20/17 [Rx] Budesonide [Pulmicort] 0.5 mg NEB BIDRT #60 neb 11/20/17 [Rx] Levofloxacin 500 mg PO DAILY #7 tablet 11/20/17 [Rx] Prednisone [IJD: Prednisone] See Taper PO DAILY #30 tab 11/20/17 [Rx] Past Medical History HEENT History: Reports: Cataract Other HEENT History: wears glasses Cardiovascular History: Reports: High Cholesterol, Hypertension, Stents Other Cardiovascular History: 2 left leg and 1 right leg Respiratory History: Reports: COPD Gastrointestinal History: Reports: GERD Genitourinary History: Reports: None Musculoskeletal History: Reports: Arthritis Neurological History: Reports: None Psychiatric History: Reports: Anxiety Other Psychiatric History: occasional anxiety Endocrine/Metabolic History: Reports: Hypothyroidism Other Endocrine/Metabolic History: thyroid problems Hematologic History: Reports: None Immunologic History: Reports: None Oncologic (Cancer) History: Reports: None Dermatologic History: Reports: None, Other (See Below) Other Dermatologic History: dry flaky skin to heels - Infectious Disease History Infectious Disease History: Reports: Measles, Mumps - Past Surgical History HEENT Surgical History: Reports: Cataract Surgery, Other (See Below) Cardiovascular Surgical History: Reports: Coronary Artery Bypass Other Cardiovascular Surgeries/Procedures: 3 bypass Respiratory Surgical History: Reports: None Male Surgical History: Reports: None Social & Family History - Family History Family Medical History: Noncontributory - Caffeine Use Caffeine Use: Reports: Coffee - Living Situation & Occupation Living situation: Reports: , Alone Occupation: Retired ED ROS GENERAL - Review of Systems Review Of Systems: ROS reveals no pertinent complaints other than HPI. ED EXAM, GENERAL - Physical Exam Exam: See Below Exam Limited By: No Limitations General Appearance: Alert, WD/WN, No Apparent Distress Eye Exam: Bilateral Eye: EOMI, Normal Inspection, PERRL Ears: Normal External Exam, Normal Canal, Hearing Grossly Normal, Normal TMs Nose: Normal Inspection, Normal Mucosa, No Blood Throat/Mouth: Normal Inspection, Normal Lips, Normal Teeth, Normal Gums, Normal Oropharynx, Normal Voice, No Airway Compromise Head: Atraumatic, Normocephalic Neck: Normal Inspection, Supple, Non-Tender, Full Range of Motion Respiratory/Chest: Decreased Breath Sounds (throughout.), Wheezing Cardiovascular: Normal Peripheral Pulses, Regular Rate, Rhythm, No Edema, No Gallop, No JVD, No Murmur, No Rub GI/Abdominal: Other (obese) (Male) Exam: Deferred Rectal (Males) Exam: Deferred Back Exam: Normal Inspection, Full Range of Motion, NT Extremities: Normal Inspection, Normal Range of Motion, Non-Tender, Normal Capillary Refill, No Pedal Edema Neurological: Alert, Oriented, CN II-XII Intact, Normal Cognition, Normal Gait, Normal Reflexes, No Motor/Sensory Deficits Psychiatric: Normal Affect, Normal Mood Skin Exam: Other (fine rash around neck) Lymphatic: No Adenopathy Course - Vital Signs Last Recorded V/S: Last Vital Signs Temp 36.6 C 05/20/18 11:05 Pulse 58 L 05/20/18 14:04 Resp 16 05/20/18 14:04 BP 123/74 05/20/18 14:04 Pulse Ox 94 L 05/20/18 14:04 - Orders/Labs/Meds Orders: Active Orders 24 hr Category Date Time Status EKG Documentation Completion [RC] URGENT Care 05/20/18 10:51 Active EKG Documentation Completion [RC] URGENT Care 05/20/18 15:00 Active RT Aerosol Therapy [RC] ASDIRECTED Care 05/20/18 10:54 Active RT Aerosol Therapy [RC] ASDIRECTED Care 05/20/18 11:18 Active Labs: Laboratory Tests 05/20/18 05/20/18 05/20/18 Range/Units 11:09 11:09 11:09 WBC 6.8 (5.0-10.0) 10^3/uL RBC 5.26 (4.6-6.2) 10^6/uL Hgb 16.2 (14.0-18.0) g/dL Hct 47.2 (40.0-54.0) % MCV 89.7 D (80-100) fL MCH 30.8 (27.0-34.0) pg MCHC 34.3 (33.0-35.0) g/dL Plt Count 234 (150-450) 10^3/uL Neut % (Auto) 47.7 (42.2-75.2) % Lymph % (Auto) 34.2 (20.5-50.1) % [place] % (Auto) 10.5 H (2-8) % Eos % (Auto) 7.0 H (1.0-3.0) % Baso % (Auto) 0.6 (0.0-1.0) % D-Dimer, Quantitative 412 H (0-400) ng/mL Sodium 135 (135-145) mmol/L Potassium 3.2 L D (3.6-5.0) mmol/L Chloride 101 (101-111) mmol/L Carbon Dioxide 26.0 (21.0-31.0) mmol/L Anion Gap 11.2 BUN 17 (7-18) mg/dL Creatinine 1.0 (0.6-1.3) mg/dL Est Cr Clr Drug Dosing 67.93 mL/min Estimated GFR (MDRD) > 60 BUN/Creatinine Ratio 17.00 Glucose 88 (74-105) mg/dL Calcium 9.0 (8.4-10.2) mg/dl Total Bilirubin 0.6 (0.2-1.0) mg/dL AST 21 (10-42) IU/L ALT 16 (10-60) IU/L Alkaline Phosphatase 57 (42-121) IU/L Troponin I < 0.02 (0.00-0.02) ng/ml Total Protein 7.2 (6.7-8.2) g/dl Albumin 3.8 (3.2-5.5) g/dl Globulin 3.4 Albumin/Globulin Ratio 1.12 08/25/18 Range/Units 15:06 WBC (5.0-10.0) 10^3/uL RBC (4.6-6.2) 10^6/uL Hgb (14.0-18.0) g/dL Hct (40.0-54.0) % MCV (80-100) fL MCH (27.0-34.0) pg MCHC (33.0-35.0) g/dL Plt Count (150-450) 10^3/uL Neut % (Auto) (42.2-75.2) % Lymph % (Auto) (20.5-50.1) % [place] % (Auto) (2-8) % Eos % (Auto) (1.0-3.0) % Baso % (Auto) (0.0-1.0) % D-Dimer, Quantitative (0-400) ng/mL Sodium (135-145) mmol/L Potassium (3.6-5.0) mmol/L Chloride (101-111) mmol/L Carbon Dioxide (21.0-31.0) mmol/L Anion Gap BUN (7-18) mg/dL Creatinine (0.6-1.3) mg/dL Est Cr Clr Drug Dosing mL/min Estimated GFR (MDRD) BUN/Creatinine Ratio Glucose (74-105) mg/dL Calcium (8.4-10.2) mg/dl Total Bilirubin (0.2-1.0) mg/dL AST (10-42) IU/L ALT (10-60) IU/L Alkaline Phosphatase (42-121) IU/L Troponin I < 0.02 (0.00-0.02) ng/ml Total Protein (6.7-8.2) g/dl Albumin (3.2-5.5) g/dl Globulin Albumin/Globulin Ratio Meds: Medications Discontinued Medications Generic Name Dose Route Start Last Admin Trade Name Freq PRN Reason Stop Dose Admin Al Hydroxide/Mg Hydroxide 30 ml 05/20/18 11:56 05/20/18 12:14 Gi Cocktail PO 05/20/18 11:57 30 ml ONETIME ONE Administration Albuterol 0.63 mg 05/20/18 10:54 05/20/18 12:15 Proventil Neb Soln [facility] 05/20/18 10:55 Not Given ONETIME ONE Albuterol 2.5 mg 05/20/18 11:18 05/20/18 11:29 Proventil Neb Soln NEB 05/20/18 11:19 2.5 mg ONETIME ONE Administration Morphine Sulfate 2 mg 05/20/18 13:02 05/20/18 13:06 Morphine IVPUSH 05/20/18 13:03 2 mg ONETIME ONE Administration - Re-Assessments/Exams Free Text/Narrative Re-Assessment/Exam: 05/20/18 13:03 The patient reports his pain is a burning pain and rates his pain at a 9/10 at this time. The patient was advised of the examination, lab, EKG and x-ray results. An order was placed for 2 mg of morphine. Departure - Departure Time of Disposition: 15:43 Disposition: Home, Self-Care 01 Condition: Fair Clinical Impression: Nonspecific chest pain Chest wall muscle strain Qualifiers: Encounter type: initial encounter Qualified Code(s): S29.011A - Strain of muscle and tendon of front wall of thorax, initial encounter Instructions: Chest Wall Pain, Oosp-ru-Hqys, Nonspecific Chest Pain, Easy-to- Read Forms: ED Department Discharge Care Plan Goals: The patient was advised of the examination, lab, EKG and chest x-ray results during the visit. The patient was encouraged to continue to take Tylenol as needed for temporary symptom relief. If the patient has any additional symptoms or concerns, the patient should follow-up with his primary care facility or return to the emergency department. - My Orders Last 24 Hours: My Active Orders 05/20/18 10:51 EKG Documentation Completion [RC] URGENT 05/20/18 10:54 RT Aerosol Therapy [RC] ASDIRECTED 05/20/18 11:18 RT Aerosol Therapy [RC] ASDIRECTED 05/20/18 15:00 EKG Documentation Completion [RC] URGENT - Assessment/Plan Last 24 Hours: My Active Orders 05/20/18 10:51 EKG Documentation Completion [RC] URGENT 05/20/18 10:54 RT Aerosol Therapy [RC] ASDIRECTED 05/20/18 11:18 RT Aerosol Therapy [RC] ASDIRECTED 05/20/18 15:00 EKG Documentation Completion [RC] URGENT I have read and agree with the documentation that has been completed regarding this visit. By signing this record, I attest that the documentation was completed in my physical presence and is an accurate record of the encounter.
--- NOTE | 2018-05-22 16:37 | EKG ---
05/20/2018 - MAU CARLTON - TIME: 2:56 p.m. FINDINGS: Sinus rhythm at 60 with right bundle-branch block. Probable inferior infarct, age indeterminate. [facility] /[id number]
--- NOTE | 2018-05-23 10:53 | EKG ---
05/20/2018 - Burt CARLTON- TIME: 10:54 a.m. FINDINGS: Sinus rhythm at 65. Right bundle-branch block. Probable inferior infarct, age indeterminate. [facility] /[id number]
--- NOTE | 2018-05-23 17:14 | EKG ---
05/20/2018 - MAU CARLTON - TIME: 10:54 a.m. FINDINGS: Sinus rhythm at 55. Right bundle branch block. Probable inferior infarct, age indeterminate. [facility] /[id number]
--- NOTE | 2018-05-23 17:32 | EKG ---
05/20/2018 - MAU CARLTON - TIME: 2:56 p.m. FINDINGS: Sinus rhythm at 50. Right bundle branch block. Probable inferior infarct is indeterminant. [facility] /[id number]
== END 2018-05-20 16:09 | disposition home or self-care (01) ==
LOC: DL.ED 10:49
DX: S29.011A Strain of muscle and tendon of front wall of thorax, initial encounter (principal); E78.00 Pure hypercholesterolemia, unspecified; I10 Essential (primary) hypertension; J44.9 Chronic obstructive pulmonary disease, unspecified; K21.9 Gastro-esophageal reflux disease without esophagitis; F41.9 Anxiety disorder, unspecified; E03.9 Hypothyroidism, unspecified; Z88.8 Allergy status to other drugs, medicaments and biological substances; Z79.899 Other long term (current) drug therapy; X58.XXXA Exposure to other specified factors, initial encounter
CPT/HCPCS: 36415; 71045; 80053; 84484; 85025; 85379; 93005; 93010; 94640; 96374; 99285; A9270; J2270; J7620; 99283; J7613-GY

== ENCOUNTER 2019-07-27 05:15 | Emergency (ER) | payer MEDICARE, MEDICAID ==
[2019-07-27] MEDS ORDERED: Famotidine 20 MG/2 ML SDV IVPUSH ONE (05:29)
[2019-07-27] MEDS ORDERED: GI Cocktail Oral Solution 30 ML PO ONE (05:29)
--- NOTE | 2019-07-27 05:46 | EDM.PDOC ---
"<CristinaWin felder Laron - Last Filed: 07/27/19 06:39> ED HPI GENERAL MEDICAL PROBLEM - General Chief Complaint: Chest Pain Stated Complaint: CHEST PAINS Time Seen by Provider: 07/27/19 05:22 Source of Information: Reports: Patient, RN History Limitations: Reports: No Limitations - History of Present Illness INITIAL COMMENTS - FREE TEXT/NARRATIVE: ED with c/o waking with chest pain about 2 hours prior. Patient point to epigastric area, describes a burning radiates around ribs.. Notes last night ate later and more than usual. Denies nausea, vomiting no SOB no cough, No diarrhea. Admits similar sx in past. tried Maalox x 1 at onset of sx but did not help. BM in past 2 days. Epigastric Pain Score (Numeric/FACES): 5 - Related Data Allergies Allergy/AdvReac Type Severity Reaction Status Date / Time atenolol Allergy Swollen Verified 07/27/19 06:15 Tongue candesartan Allergy Cannot Verified 07/27/19 06:15 Remember diltiazem Allergy Cannot Verified 07/27/19 06:15 Remember doxazosin Allergy Cannot Verified 07/27/19 06:15 Remember felodipine Allergy Cannot Verified 07/27/19 06:15 Remember formoterol [From Symbicort] Allergy Numbness Verified 07/27/19 06:15 hydralazine Allergy Cannot Verified 07/27/19 06:15 Remember labetalol Allergy Swollen Verified 07/27/19 06:15 Tongue lisinopril Allergy Cannot Verified 07/27/19 06:15 Remember metoprolol Allergy Swollen Verified 07/27/19 06:15 Tongue nifedipine Allergy Cannot Verified 07/27/19 06:15 Remember tiotropium Allergy Cough Verified 07/27/19 06:15 [From Spiriva with HandiHaler] cholesterol pills Allergy Other Uncoded 07/27/19 06:15 Home Meds: Home Meds Verapamil [Verelan PM] 300 mg PO BEDTIME 11/08/14 [History] hydroCHLOROthiazide [Hydrochlorothiazide] 50 mg PO DAILY 11/08/14 [History] Ranitidine HCl 1 tab PO BID PRN 06/23/15 [History] Clopidogrel Bisulfate [Clopidogrel] 75 mg PO DAILY 09/06/15 [History] Albuterol [Ventolin HFA] 2 puff INH Q6H PRN 05/22/16 [History] Apixaban [Eliquis] 5 mg PO BID 12/16/16 [History] LORazepam [Ativan] 0.5 mg PO DAILY PRN 06/15/17 [History] Fluticasone Furoate [Flonase Sensimist] 1 spray NASBOTH DAILY 07/16/17 [History] diphenhydrAMINE HCl [Benadryl Allergy] 25 mg PO DAILY PRN 07/16/17 [History] Cholecalciferol (Vitamin D3) [Vitamin D3] 1 cap PO DAILY 11/18/17 [History] Rosuvastatin Calcium 5 mg PO BEDTIME 11/18/17 [History] Tiotropium [place] [Spiriva Respimat] 4 gm IH DAILY 11/18/17 [History] Albuterol/Ipratropium [DuoNeb 3.0-0.5 MG/3 ML] 3 ml NEB TID@0700,1800,2100 PRN # 90 neb 11/20/17 [Rx] Budesonide [Pulmicort] 0.5 mg NEB BIDRT #60 neb 11/20/17 [Rx] Past Medical History HEENT History: Reports: Cataract Other HEENT History: wears glasses Cardiovascular History: Reports: Afib, Arrhythmia, CAD, High Cholesterol, Hypertension, Stents Other Cardiovascular History: 2 left leg and 1 right leg Respiratory History: Reports: COPD, Sleep Apnea Gastrointestinal History: Reports: GERD Genitourinary History: Reports: None Musculoskeletal History: Reports: Arthritis Neurological History: Reports: None Psychiatric History: Reports: Anxiety Other Psychiatric History: occasional anxiety Endocrine/Metabolic History: Reports: Hypothyroidism Other Endocrine/Metabolic History: thyroid problems Hematologic History: Reports: Anemia Immunologic History: Reports: None Oncologic (Cancer) History: Reports: None Dermatologic History: Reports: None, Other (See Below) Other Dermatologic History: dry flaky skin to heels - Infectious Disease History Infectious Disease History: Reports: Chicken Pox, Measles, Mumps - Past Surgical History HEENT Surgical History: Reports: Cataract Surgery, Tonsillectomy Cardiovascular Surgical History: Reports: Coronary Artery Bypass, Vascular Surgery, Other (See Below) Other Cardiovascular Surgeries/Procedures: 3 bypass. bilateral popliteal artery aneurysm. s/p periphereal artery stent thrombosis Respiratory Surgical History: Reports: None GI Surgical History: Reports: Colonoscopy Male Surgical History: Reports: None Musculoskeletal Surgical History: Reports: None Social & Family History - Family History Family Medical History: Noncontributory - Caffeine Use Caffeine Use: Reports: Coffee Caffeine Use Comment: decaf - Living Situation & Occupation Living situation: Reports: , Alone Occupation: Retired ED ROS GENERAL - Review of Systems Review Of Systems: ROS reveals no pertinent complaints other than HPI. ED EXAM, GENERAL - Physical Exam Exam: See Below Exam Limited By: No Limitations General Appearance: Alert, No Apparent Distress (talkative, joking), Anxious Eye Exam: Bilateral Eye: EOMI Ears: Hearing Loss Nose: Normal Inspection Throat/Mouth: Normal Inspection Head: Atraumatic, Normocephalic Neck: Normal Inspection, Supple, Non-Tender, Full Range of Motion. No: Lymphadenopathy (L), Lymphadenopathy (R), Tender Lateral, Tender Midline Respiratory/Chest: No Respiratory Distress, Normal Breath Sounds, No Accessory Muscle Use, Chest Non-Tender Cardiovascular: Normal Peripheral Pulses, Regular Rate, Rhythm, No Edema GI/Abdominal: Normal Bowel Sounds, Tender (epigastric). No: Distended, Guarding Extremities: Normal Inspection Neurological: Alert, Oriented, Normal Cognition Psychiatric: Normal Affect, Normal Mood Skin Exam: Warm, Dry, Intact, Normal Color Course - Vital Signs Last Recorded V/S: Last Vital Signs Temp 97 F 07/27/19 06:00 Pulse 69 07/27/19 06:00 Resp 20 07/27/19 06:00 BP 135/69 07/27/19 06:00 Pulse Ox 95 07/27/19 06:00 - Orders/Labs/Meds Orders: Active Orders 24 hr Category Date Time Status EKG Documentation Completion [RC] URGENT Care 07/27/19 05:18 Active Abdomen Pelvis w Cont [CT] Urgent Exams 07/27/19 06:09 Taken Chest 1V Frontal [CR] Urgent Exams 07/27/19 05:18 Taken Labs: Laboratory Tests 07/27/19 07/27/19 07/27/19 Range/Units 05:30 05:30 05:30 WBC 8.0 (5.0-10.0) 10^3/uL RBC 5.83 (4.6-6.2) 10^6/uL Hgb 17.9 (14.0-18.0) g/dL Hct 51.8 (40.0-54.0) % MCV 88.9 (80-100) fL MCH 30.7 (27.0-34.0) pg MCHC 34.6 (33.0-35.0) g/dL Plt Count 241 (150-450) 10^3/uL Neut % (Auto) 57.4 (42.2-75.2) % Lymph % (Auto) 30.3 (20.5-50.1) % [place] % (Auto) 6.2 (2-8) % Eos % (Auto) 5.5 H (1.0-3.0) % Baso % (Auto) 0.6 (0.0-1.0) % PT 9.9 (9.0-12.0) SEC INR 1.0 (0.9-1.2) Sodium 136 (135-145) mmol/L Potassium 3.3 L (3.6-5.0) mmol/L Chloride 98 L (101-111) mmol/L Carbon Dioxide 27.0 (21.0-31.0) mmol/L Anion Gap 14.3 BUN 21 H (7-18) mg/dL Creatinine 1.0 (0.6-1.3) mg/dL Est Cr Clr Drug Dosing 65.90 mL/min Estimated GFR (MDRD) > 60 BUN/Creatinine Ratio 21.00 Glucose 117 H (74-105) mg/dL Calcium 9.5 (8.4-10.2) mg/dl Magnesium 2.1 (1.8-2.5) mg/dL Total Bilirubin 0.8 (0.2-1.0) mg/dL AST 22 (10-42) IU/L ALT 20 (10-60) IU/L Alkaline Phosphatase 66 (42-121) IU/L Troponin I < 0.02 (0.00-0.02) ng/ml B-Natriuretic Peptide 37 (0-100) pg/ml Total Protein 7.8 (6.7-8.2) g/dl Albumin 4.1 (3.2-5.5) g/dl Globulin 3.7 Albumin/Globulin Ratio 1.11 Amylase 69 (28-100) U/L Lipase 218 H (22-51) U/L Meds: Medications Discontinued Medications Generic Name Dose Route Start Last Admin Trade Name Freq PRN Reason Stop Dose Admin Al Hydroxide/Mg Hydroxide 30 ml 07/27/19 05:29 07/27/19 05:40 Gi Cocktail PO 07/27/19 05:30 30 ml ONETIME ONE Administration Famotidine 20 mg 07/27/19 05:29 07/27/19 05:40 Pepcid IVPUSH 07/27/19 05:30 20 mg ONETIME ONE Administration Hydromorphone HCl 0.5 mg 07/27/19 06:08 07/27/19 06:13 Dilaudid IVPUSH 07/27/19 06:09 0.5 mg ONETIME ONE Administration Iopamidol 75 ml 07/27/19 06:09 07/27/19 07:17 Isovue-300 (61%) IVPUSH 07/27/19 06:10 75 ml ONETIME ONE Administration Ondansetron HCl 4 mg 07/27/19 06:03 07/27/19 06:06 Zofran IV 07/27/19 06:04 4 mg ONETIME ONE Administration - Re-Assessments/Exams Free Text/Narrative Re-Assessment/Exam: 07/27/19 06:41 Pain improved, still present comes and goes. Departure - Departure Disposition: Home, Self-Care 01 Clinical Impression: Indigestion Abdominal pain Qualifiers: Abdominal location: upper abdomen, unspecified Qualified Code(s): R10.10 - Upper abdominal pain, unspecified Instructions: Indigestion, [id number], Abdominal Pain, Adult Forms: ED Department Discharge Additional Instructions: Rx: Zofran 4mg [place] diet today. Do not lay down for 1 to 2 hours after eating. Follow up in clinic for recheck next week if needed. Return to ER if worse at any time. <Melvin Lane - Last Filed: 07/27/19 07:38> ED HPI GENERAL MEDICAL PROBLEM - History of Present Illness INITIAL COMMENTS - FREE TEXT/NARRATIVE: I assumed care of the pt from Win JIN at 0700HR shift change with pt currently in the CT scanner per Win's order. Upon return from CT the pt states that he had a large belch while in the radiology department which completely alleviated his symptoms. Pt states that he feels back to normal now and wishes to go home. Onset: Today Duration: Constant Location: Reports: Abdomen Quality: Reports: Ache, Pressure Severity: Moderate Improves with: Reports: None Worsens with: Reports: None Associated Symptoms: Reports: No Other Symptoms Treatments PRODUCTION SUPPORT DEVELOPER: Reports: Other Medication(s) ED EXAM, GENERAL - Physical Exam Free Text/Narrative:: No changes to exam as documented by Wni JIN for this encounter. Course - Radiology Interpretation Free Text/Narrative:: [facility] [place] [facility] Final Radiology Report Call: [phone] assistance Online chat: [email or web address] Name: MAU CARLTON Age: 74Years M Date: 07/27/2019 SSN: -- : [id number] Study: CT ABDOMEN/PELVIS W Requesting Physician: WIN HORTON Images: 248 Addl Studies: Provided Clinical History: Contrast: With Contrast Medium: ISOVUE 300 Contrast Amount: 100 mL Contrast Method: LAC Page 1 of 2 PROCEDURE INFORMATION: Exam: CT Abdomen And Pelvis With Contrast Exam date and time: 07/27/2019 6:45 AM Clinical history: 74 years old, male; Abdominal pain; Generalized; Patient HX: Abd pain. Elevated lipase TECHNIQUE: Imaging protocol: Computed tomography of the abdomen and pelvis with intravenous contrast. Delayed images were also obtained. Radiation optimization: All CT scans at this facility use at least one of these dose optimization techniques: automated exposure control; mA and/or kV adjustment per patient size (includes targeted exams where dose is matched to clinical indication); or iterative reconstruction. Contrast material: Isovue 300; Contrast volume: 100 ml; Contrast route: LAC; COMPARISON: No relevant prior studies available. FINDINGS: Liver: Normal. No mass. Gallbladder and bile ducts: Normal. No calcified stones. No ductal dilation. Pancreas: Normal. No ductal dilation. Spleen: Normal. No splenomegaly. Adrenals: Normal. No mass. Kidneys and ureters: LEFT renal simple cyst measuring 5.4 cm. Stomach and bowel: There is mildly increased stool noted in the ascending colon. Sigmoid and descending colonic diverticula are present without evidence of diverticulitis. Appendix: The vermiform appendix is normal. Intraperitoneal space: Unremarkable. No free air. No significant fluid collection. MAU CARLTON | Final Radiology Report CONFIDENTIALITY STATEMENT This report is intended only for use by the referring physician, and only in accordance with law. If you received this in error, call [phone]. Page 2 of 2 Vasculature: Infrarenal abdominal aortic aneurysm is present measuring 3.7 cm AP dimension. There is no evidence of rupture or leakage. The iliac arteries show moderate bilateral atherosclerotic calcifications. LEFT common iliac artery fusiform aneurysm measuring 2.1 cm. RIGHT common iliac artery ectasia measuring 1.7 cm. Calcified phleboliths are present in the lower pelvis bilaterally. Lymph nodes: Unremarkable. No enlarged lymph nodes. Bladder: Unremarkable as visualized. Reproductive: The prostate gland demonstrates nonspecific parenchymal calcifications. Bones/joints: LEFT lower lumbar facet primary osteoarthritis. Lumbar spine vertebral body marginal osteophytes are noted at multiple levels. Soft tissues: Unremarkable. IMPRESSION: 1. Infrarenal abdominal aortic aneurysm. 2. No CT evidence complicated pancreatitis. 3. LEFT renal simple cyst. 4. LEFT common iliac artery fusiform aneurysm. 5. Mild RIGHT abdominal colonic constipation. 6. Diverticulosis. 7. Chronic calcific prostatitis. Thank you for allowing us to participate in the care of your patient. Dictated and Authenticated by: Dany Lance MD 07/27/2019 7:13 AM Central Time ([place] & [place]) [facility] Final Radiology Report Call: [phone] assistance Online chat: [email or web address] Name: MAU CARLTON Age: 74Years M Date: 07/27/2019 SSN: -- : 1945 Study: XR CHEST 1 VIEW FRONTAL Requesting Physician: WIN HORTON Images: 1 Addl Studies: Provided Clinical History: Contrast: Contrast Medium: Contrast Amount: Contrast Method: CONFIDENTIALITY STATEMENT This report is intended only for use by the referring physician, and only in accordance with law. If you received this in error, call [phone]. Page 1 of 1 PROCEDURE INFORMATION: Exam: XR Chest, 1 View Exam date and time: 07/27/2019 6:30 AM Clinical history: 74 years old, male; Chest pain; Type not specified TECHNIQUE: Imaging protocol: XR of the chest Views: 1 view. COMPARISON: CR Chest 2V 04/04/2019 2:29 AM FINDINGS: Tubes, catheters and devices: EKG leads are present overlying the anterior chest. Lungs: Mild LEFT lateral basilar subsegmental atelectasis. The pulmonary vasculature is normal. LEFT mid lung zone calcified pulmonary parenchymal granuloma. Pleural space: No definite pleural effusion. No pneumothorax. Heart/Mediastinum: The heart is normal in size and contour. Mediastinum: Stable. Bones/joints: The patient is status post median sternotomy with intact sternal cerclage wires. IMPRESSION: Mild LEFT lateral basilar subsegmental atelectasis. Thank you for allowing us to participate in the care of your patient. Dictated and Authenticated by: Dany Lance MD 07/27/2019 7:16 AM Central Time ([place] & [place]) Departure - Departure Time of Disposition: 07:33 Condition: Good"
[2019-07-27 06:01] VITALS: BP 135/69; PULSE 69
[2019-07-27 06:01] LABS: ANION GAP 14.3; CHLORIDE,CL 98 mmol/L (101-111); SODIUM,NA 136 mmol/L (135-145)
[2019-07-27] MEDS ORDERED: Ondansetron 4 MG/2 ML SDV IV ONE (06:03)
[2019-07-27] MEDS ORDERED: HYDROmorphone 1 MG/ML Syringe IVPUSH ONE (06:08)
[2019-07-27] MEDS ORDERED: Iopamidol 612 MG/ML 75 ML Bottle IVPUSH ONE (06:09)
== END 2019-07-27 07:54 | disposition home or self-care (01) ==
LOC: DL.ED 05:15
DX: K30 Functional dyspepsia (principal); E78.00 Pure hypercholesterolemia, unspecified; I10 Essential (primary) hypertension; J44.9 Chronic obstructive pulmonary disease, unspecified; K21.9 Gastro-esophageal reflux disease without esophagitis; F41.9 Anxiety disorder, unspecified; E03.9 Hypothyroidism, unspecified; Z88.8 Allergy status to other drugs, medicaments and biological substances; Z79.01 Long term (current) use of anticoagulants; Z79.899 Other long term (current) drug therapy
CPT/HCPCS: 36415; 71045; 74177; 80053; 82150; 83690; 83735; 83880; 84484; 85025; 85610; 93005; 96374; 96375; 99284; A9270; J1170; J2405; J3490; Q9967

== ENCOUNTER 2020-06-03 13:43 | Emergency (ER) | payer MEDICARE, MEDICAID ==
[2020-06-03 14:18] VITALS: BP 172/89; PULSE 66
--- NOTE | 2020-06-03 14:21 | EDM.PDOC ---
"ED HPI GENERAL MEDICAL PROBLEM - General Chief Complaint: Respiratory Problem Stated Complaint: COPD ACTING UP Time Seen by Provider: 06/03/20 14:20 Source of Information: Reports: Patient, Old Records, RN, RN Notes Reviewed History Limitations: Reports: No Limitations - History of Present Illness INITIAL COMMENTS - FREE TEXT/NARRATIVE: Pt to ER with complaints of SOB, states it has slowly been getting worse over the last month. Today more significant. Denies chest pain, SOB worse with activity, has mostly dry cough but does occasionally bring up white sputum. Denies chest pain, edema, or fever. 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 Treatments - Related Data Allergies Allergy/AdvReac Type Severity Reaction Status Date / Time atenolol Allergy Swollen Verified 06/03/20 14:16 Tongue candesartan Allergy Cannot Verified 06/03/20 14:16 Remember diltiazem Allergy Cannot Verified 06/03/20 14:16 Remember doxazosin Allergy Cannot Verified 06/03/20 14:16 Remember felodipine Allergy Cannot Verified 06/03/20 14:16 Remember formoterol [From Symbicort] Allergy Numbness Verified 06/03/20 14:16 hydralazine Allergy Cannot Verified 06/03/20 14:16 Remember labetalol Allergy Swollen Verified 06/03/20 14:16 Tongue lisinopril Allergy Cannot Verified 06/03/20 14:16 Remember metoprolol Allergy Swollen Verified 06/03/20 14:16 Tongue nifedipine Allergy Cannot Verified 06/03/20 14:16 Remember tiotropium Allergy Cough Verified 06/03/20 14:16 [From Spiriva with HandiHaler] cholesterol pills Allergy Other Uncoded 07/27/19 06:15 Home Meds: Home Meds Verapamil [Verelan PM] 300 mg PO BEDTIME 11/08/14 [History] hydroCHLOROthiazide [Hydrochlorothiazide] 25 mg PO DAILY 11/08/14 [History] Clopidogrel Bisulfate [Clopidogrel] 75 mg PO DAILY 09/06/15 [History] Apixaban [Eliquis] 5 mg PO BID 12/16/16 [History] LORazepam [Ativan] 0.5 mg PO DAILY PRN 06/15/17 [History] Fluticasone Furoate [Flonase Sensimist] 1 spray NASBOTH DAILY 07/16/17 [History] Rosuvastatin Calcium 5 mg PO BEDTIME 11/18/17 [History] Tiotropium [place] [Spiriva Respimat] 4 gm IH DAILY 11/18/17 [History] Albuterol Sulfate 1 dose INH Q6HR PRN 06/03/20 [History] Albuterol Sulfate [Proair Respiclick] 2 puff IH Q6H 06/03/20 [History] Ezetimibe 5 mg PO DAILY 06/03/20 [History] Famotidine 20 mg PO DAILY 06/03/20 [History] Nicotine [Nicotine Patch] 21 mg TD DAILY 06/03/20 [History] guaiFENesin [Guaifenesin] 200 mg PO TID 06/03/20 [History] Past Medical History HEENT History: Reports: Cataract Other HEENT History: wears glasses Cardiovascular History: Reports: Afib, Arrhythmia, CAD, High Cholesterol, Hypertension, Stents Other Cardiovascular History: 2 left leg and 1 right leg Respiratory History: Reports: COPD, Sleep Apnea Gastrointestinal History: Reports: GERD Genitourinary History: Reports: None Musculoskeletal History: Reports: Arthritis Neurological History: Reports: None Psychiatric History: Reports: Anxiety Other Psychiatric History: occasional anxiety Endocrine/Metabolic History: Reports: Hypothyroidism Other Endocrine/Metabolic History: thyroid problems Hematologic History: Reports: Anemia Immunologic History: Reports: None Oncologic (Cancer) History: Reports: None Dermatologic History: Reports: None, Other (See Below) Other Dermatologic History: dry flaky skin to heels - Infectious Disease History Infectious Disease History: Reports: Chicken Pox, Measles, Mumps - Past Surgical History HEENT Surgical History: Reports: Cataract Surgery, Tonsillectomy Cardiovascular Surgical History: Reports: Coronary Artery Bypass, Vascular Surgery, Other (See Below) Other Cardiovascular Surgeries/Procedures: 3 bypass. bilateral popliteal artery aneurysm. s/p periphereal artery stent thrombosis Respiratory Surgical History: Reports: None GI Surgical History: Reports: Colonoscopy Male Surgical History: Reports: None Musculoskeletal Surgical History: Reports: None Social & Family History - Family History Family Medical History: Noncontributory - Tobacco Use Smoking Status *Q: Current Every Day Smoker Tobacco Use Within Last Twelve Months: Cigarettes - Caffeine Use Caffeine Use: Reports: Coffee Caffeine Use Comment: decaf - Living Situation & Occupation Living situation: Reports: , Alone Occupation: Retired ED ROS GENERAL - Review of Systems Review Of Systems: Comprehensive ROS is negative, except as noted in HPI. ED EXAM, GENERAL - Physical Exam Exam: See Below Exam Limited By: No Limitations General Appearance: Alert, WD/WN, No Apparent Distress Nose: Normal Inspection, Normal Mucosa, No Blood Throat/Mouth: Normal Inspection, Normal Lips, Normal Voice, No Airway Compromise Head: Atraumatic, Normocephalic Neck: Normal Inspection, Supple, Non-Tender, Full Range of Motion Respiratory/Chest: No Respiratory Distress, No Accessory Muscle Use, Chest Non- Tender, Decreased Breath Sounds, Crackles, Wheezing. No: Rales, Rhonchi, Stridor Cardiovascular: Regular Rate, Rhythm, No Edema GI/Abdominal: Normal Bowel Sounds, Soft, Non-Tender Back Exam: Normal Inspection Extremities: Normal Inspection Neurological: Alert, Oriented, No Motor/Sensory Deficits Psychiatric: Normal Affect, Normal Mood Skin Exam: Warm, Dry, Intact, Normal Color, No Rash Course - Vital Signs Last Recorded V/S: Last Vital Signs Temp 98.5 F 06/03/20 14:10 Pulse 66 06/03/20 14:10 Resp 24 H 06/03/20 14:10 BP 172/89 H 06/03/20 14:10 Pulse Ox 97 06/03/20 14:10 - Orders/Labs/Meds Orders: Active Orders 24 hr Category Date Time Status Peripheral IV Care [RC] . DIRECTED Care 06/03/20 14:34 Active RT Aerosol Therapy [RC] ASDIRECTED Care 06/03/20 14:34 Active Sodium Chloride 0.9% [Saline Flush] Med 06/03/20 14:30 Active 10 ml FLUSH ASDIRECTED PRN Peripheral IV Insertion Adult [OM.PC] Stat Oth 06/03/20 14:30 Ordered Medication Orders Sodium Chloride (Saline Flush) 10 ml FLUSH ASDIRECTED PRN PRN Reason: Keep Vein Open Labs: Laboratory Tests 06/03/20 06/03/20 Range/Units 14:54 14:54 WBC 9.0 (5.0-10.0) 10^3/uL RBC 5.33 (4.6-6.2) 10^6/uL Hgb 16.6 (14.0-18.0) g/dL Hct 48.6 (40.0-54.0) % MCV 91.2 (80-100) fL MCH 31.1 (27.0-34.0) pg MCHC 34.2 (33.0-35.0) g/dL Plt Count 229 (150-450) 10^3/uL Neut % (Auto) 53.8 (42.2-75.2) % Lymph % (Auto) 34.9 (20.5-50.1) % [place] % (Auto) 6.4 (2-8) % Eos % (Auto) 4.5 H (1.0-3.0) % Baso % (Auto) 0.4 (0.0-1.0) % Sodium 138 (136-145) mmol/L Potassium 3.7 (3.5-5.1) mmol/L Chloride 102 (98-107) mmol/L Carbon Dioxide 27 (21-32) mmol/L Anion Gap 12.7 (7-13) mEq/L BUN 15 (7-18) mg/dL Creatinine 1.06 (0.70-1.30) mg/dL Est Cr Clr Drug Dosing 64.11 mL/min Estimated GFR (MDRD) > 60 BUN/Creatinine Ratio 14.2 (No establ ref range) Glucose 90 (74-99) mg/dL Calcium 9.0 (8.5-10.1) mg/dL Total Bilirubin 0.5 (0.2-1.0) mg/dL AST 16 (15-37) U/L ALT 20 (16-63) U/L Alkaline Phosphatase 67 (46-116) U/L B-Natriuretic Peptide 60 (0-100) pg/ml Total Protein 7.5 (6.4-8.2) g/dL Albumin 3.6 (3.4-5.0) g/dL Globulin 3.9 Albumin/Globulin Ratio 0.9 Meds: Medications Generic Name Dose Route Start Last Admin Trade Name Freq PRN Reason Stop Dose Admin Sodium Chloride 10 ml 06/03/20 14:30 Saline Flush FLUSH ASDIRECTED PRN Keep Vein Open Discontinued Medications Generic Name Dose Route Start Last Admin Trade Name Freq PRN Reason Stop Dose Admin Albuterol/Ipratropium 3 ml 06/03/20 14:34 06/03/20 14:37 Duoneb 3.0-0.5 Mg/3 Ml NEB 06/03/20 14:35 3 ml ONETIME ONE Administration - Radiology Interpretation Free Text/Narrative:: [facility] [place] [facility] Final Radiology Report Call: [phone] assistance Online chat: [email or web address] Name: MAU CARTLON Age: 75Years M Date: 06/03/2020 SSN: -- : [id number] Study: CR CHEST 2V Requesting Physician: JOVANNA CHAVEZ Images: 2 Addl Studies: Provided Clinical History: COPD, shortness of breath Contrast: Contrast Medium: Contrast Amount: Contrast Method: Page 1 of 2 PROCEDURE INFORMATION: Exam: XR Chest, 2 Views Exam date and time: 06/03/2020 2:57 PM Age: 75 years old Clinical indication: Shortness of breath; Additional info: Copd, shortness of breath TECHNIQUE: Imaging protocol: XR of the chest Views: 2 views. COMPARISON: CR Chest 1V Frontal 07/27/2019 6:30 AM, CT abdomen pelvis 07/27/2019 FINDINGS: Limitations: A small portion of the right lateral costophrenic angle is excluded from the [id number], limiting evaluation. Lungs: Mild patchy right basilar airspace opacity, new. Pleural space: Mild unchanged blunting of the left lateral costophrenic angle, likely scarring. No appreciable pneumothorax, within the limits of the study. Heart/Mediastinum: Unremarkable. Bones/joints: Median sternotomy wires are aligned and intact. IMPRESSION: 1. A small portion of the right lateral costophrenic angle is excluded from the [id number], limiting evaluation. 2. Mild new patchy right basilar airspace opacity, likely atelectasis or pneumonia. Suggest follow-up imaging to document resolution, if clinically indicated. Thank you for allowing us to participate in the care of your patient. MAU CARLTON | Final Radiology Report CONFIDENTIALITY STATEMENT This report is intended only for use by the referring physician, and only in accordance with law. If you received this in error, call [phone]. Page 2 of 2 Dictated and Authenticated by: Leonel Henson MD 06/03/2020 3:16 PM Central Time ([place] & [place]) Departure - Departure Time of Disposition: 15:46 Disposition: Home, Self-Care 01 Condition: Good Clinical Impression: Acute exacerbation of chronic obstructive pulmonary disease (COPD) - Discharge Information *PRESCRIPTION DRUG MONITORING PROGRAM REVIEWED*: Not Applicable *COPY OF PRESCRIPTION DRUG MONITORING REPORT IN PATIENT NGOC: Not Applicable Instructions: Chronic Obstructive Pulmonary Disease Exacerbation, [id number] Referrals: Jessica Appiah NP [Primary Care Provider] - Forms: ED Department Discharge Additional Instructions: Rx: Prednisone 20mg (steroid) Rx: Levaquin 500mg (antibiotic) Use your nebulizer every four hours while awake. Try to quit smoking. Sepsis Event Note (ED) - Evaluation Sepsis Screening Result: No Definite Risk - Focused Exam Vital Signs: Vital Signs Temp Pulse Resp BP Pulse Ox 06/03/20 14:10 98.5 F 66 24 H 172/89 H 97 - My Orders Last 24 Hours: My Active Orders 06/03/20 14:30 Sodium Chloride 0.9% [Saline Flush] 10 ml FLUSH ASDIRECTED PRN Peripheral IV Insertion Adult [OM.PC] Stat 06/03/20 14:34 Peripheral IV Care [RC] . DIRECTED RT Aerosol Therapy [RC] ASDIRECTED - Assessment/Plan Last 24 Hours: My Active Orders 06/03/20 14:30 Sodium Chloride 0.9% [Saline Flush] 10 ml FLUSH ASDIRECTED PRN Peripheral IV Insertion Adult [OM.PC] Stat 06/03/20 14:34 Peripheral IV Care [RC] . DIRECTED RT Aerosol Therapy [RC] ASDIRECTED"
[2020-06-03] MEDS ORDERED: Sodium Chloride 0.9% 10 ML Syringe FLUSH PRN (14:30)
[2020-06-03] MEDS ORDERED: Albuterol/Ipratropium 3.0-0.5 MG/3 ML Neb Soln NEB ONE (14:34)
--- NOTE | 2020-06-03 15:16 | CR ---
PROCEDURE INFORMATION: Exam: XR Chest, 2 Views Exam date and time: 06/03/2020 2:57 PM Age: 75 years old Clinical indication: Shortness of breath; Additional info: Copd, shortness of breath TECHNIQUE: Imaging protocol: XR of the chest Views: 2 views. COMPARISON: CR Chest 1V Frontal 07/27/2019 6:30 AM, CT abdomen pelvis 07/27/2019 FINDINGS: Limitations: A small portion of the right lateral costophrenic angle is excluded from the [id number], limiting evaluation. Lungs: Mild patchy right basilar airspace opacity, new. Pleural space: Mild unchanged blunting of the left lateral costophrenic angle, likely scarring. No appreciable pneumothorax, within the limits of the study. Heart/Mediastinum: Unremarkable. Bones/joints: Median sternotomy wires are aligned and intact. IMPRESSION: 1. A small portion of the right lateral costophrenic angle is excluded from the [id number], limiting evaluation. 2. Mild new patchy right basilar airspace opacity, likely atelectasis or pneumonia. Suggest follow-up imaging to document resolution, if clinically indicated.
[2020-06-03 15:26] LABS: ANION GAP 12.7 mEq/L (7-13); CHLORIDE,CL 102 mmol/L (98-107); SODIUM,NA 138 mmol/L (136-145)
== END 2020-06-03 16:03 | disposition home or self-care (01) ==
LOC: DL.ED 13:43
DX: J44.1 Chronic obstructive pulmonary disease with (acute) exacerbation (principal); I48.91 Unspecified atrial fibrillation; I25.10 Atherosclerotic heart disease of native coronary artery without angina pectoris; E78.00 Pure hypercholesterolemia, unspecified; I10 Essential (primary) hypertension; K21.9 Gastro-esophageal reflux disease without esophagitis; E03.9 Hypothyroidism, unspecified; F17.210 Nicotine dependence, cigarettes, uncomplicated; Z79.01 Long term (current) use of anticoagulants; Z79.02 Long term (current) use of antithrombotics/antiplatelets; Z79.899 Other long term (current) drug therapy; Z95.5 Presence of coronary angioplasty implant and graft; Z88.8 Allergy status to other drugs, medicaments and biological substances; Z88.1 Allergy status to other antibiotic agents
CPT/HCPCS: 36415; 71046; 80053; 83880; 85025; 99285-25; J7620-GY

== ENCOUNTER 2020-06-29 18:58 | Emergency (ER) | payer MEDICARE, MEDICAID ==
[2020-06-29 19:52] VITALS: BP 175/91; PULSE 81
--- NOTE | 2020-06-29 20:05 | EDM.PDOC ---
ED HPI GENERAL MEDICAL PROBLEM - General Chief Complaint: Back Pain or Injury Stated Complaint: LOWER BACK, DOWN TO THE RIGHT LEG Time Seen by Provider: 06/29/20 20:05 Source of Information: Reports: Patient, RN, RN Notes Reviewed History Limitations: Reports: No Limitations - History of Present Illness INITIAL COMMENTS - FREE TEXT/NARRATIVE: Patient presents to ER with complaint of lower back pain that radiates up the spine somewhat and shoots down both legs. Patient states he has had this in the past several times, and has taken Voltaren gel and used other medications for it as prescribed. States he has had to come into the emergency room from time to time for severe pain, got getting morphine for the pain. Patient does not have a ride tonight, so unable to give him morphine. Patient states the pain has been there for couple days, and has gotten so bad that he could not handle it at home anymore. Patient has a history of COPD, anxiety, hyperlipidemia, hyperten wendy, smoker. Denies any numbness or tingling. Onset: Gradual Middle Back Pain Score (Numeric/FACES): 10 - Related Data Allergies Allergy/AdvReac Type Severity Reaction Status Date / Time atenolol Allergy Swollen Verified 06/29/20 20:10 Tongue atorvastatin Allergy Cannot Verified 06/29/20 20:10 Remember candesartan Allergy Cannot Verified 06/29/20 20:10 Remember diltiazem Allergy Cannot Verified 06/29/20 20:10 Remember doxazosin Allergy Cannot Verified 06/29/20 20:10 Remember felodipine Allergy Cannot Verified 06/29/20 20:10 Remember formoterol [From Symbicort] Allergy Numbness Verified 06/29/20 20:10 hydralazine Allergy Cannot Verified 06/29/20 20:10 Remember labetalol Allergy Swollen Verified 06/29/20 20:10 Tongue lisinopril Allergy Cannot Verified 06/29/20 20:10 Remember metoprolol Allergy Swollen Verified 06/29/20 20:10 Tongue nifedipine Allergy Cannot Verified 06/29/20 20:10 Remember pravastatin Allergy Other Verified 06/29/20 20:10 Home Meds: Home Meds hydroCHLOROthiazide [Hydrochlorothiazide] 25 mg PO DAILY 11/08/14 [History] Clopidogrel Bisulfate [Clopidogrel] 75 mg PO DAILY 09/06/15 [History] Apixaban [Eliquis] 5 mg PO BID 12/16/16 [History] Fluticasone Furoate [Flonase Sensimist] 2 spray NASBOTH DAILY 07/16/17 [History] Rosuvastatin Calcium 5 mg PO BEDTIME 11/18/17 [History] Tiotropium [place] [Spiriva Respimat] 4 gm IH DAILY 11/18/17 [History] Albuterol Sulfate 1 dose INH Q6HR PRN 06/03/20 [History] Ezetimibe 5 mg PO DAILY 06/03/20 [History] Famotidine 20 mg PO DAILY 06/03/20 [History] Nicotine [Nicotine Patch] 21 mg TD DAILY 06/03/20 [History] guaiFENesin [Guaifenesin] 200 mg PO TID 06/03/20 [History] Acetaminophen [Tylenol Extra Strength] 500 mg PO Q4H 06/29/20 [History] Calcium Carbonate [Tums Extra Strength] 750 mg PO DAILY 06/29/20 [History] Cetirizine HCl [Zyrtec] 10 mg PO DAILY 06/29/20 [History] Cholecalciferol (Vitamin D3) [D3-50] 4,000 units PO 06/29/20 [History] Mometasone/Formoterol [Dulera 200-5 MCG] 2 puff INH BID 06/29/20 [History] Past Medical History HEENT History: Reports: Cataract Other HEENT History: wears glasses Cardiovascular History: Reports: Afib, Arrhythmia, CAD, High Cholesterol, Hypertension, Stents Other Cardiovascular History: 2 left leg and 1 right leg Respiratory History: Reports: COPD, Sleep Apnea Gastrointestinal History: Reports: GERD Genitourinary History: Reports: None Musculoskeletal History: Reports: Arthritis, Back Pain, Chronic Neurological History: Reports: None Psychiatric History: Reports: Anxiety Other Psychiatric History: occasional anxiety Endocrine/Metabolic History: Reports: Hypothyroidism Other Endocrine/Metabolic History: thyroid problems Hematologic History: Reports: Anemia Immunologic History: Reports: None Oncologic (Cancer) History: Reports: None Dermatologic History: Reports: Other (See Below) Other Dermatologic History: dry flaky skin to heels - Infectious Disease History Infectious Disease History: Reports: Chicken Pox, Measles, Mumps - Past Surgical History HEENT Surgical History: Reports: Cataract Surgery, Tonsillectomy Cardiovascular Surgical History: Reports: Coronary Artery Bypass, Vascular Surgery, Other (See Below) Other Cardiovascular Surgeries/Procedures: 3 bypass. bilateral popliteal artery aneurysm. s/p periphereal artery stent thrombosis Respiratory Surgical History: Reports: None GI Surgical History: Reports: Colonoscopy Male Surgical History: Reports: None Musculoskeletal Surgical History: Reports: None Social & Family History - Family History Family Medical History: Noncontributory - Tobacco Use Smoking Status *Q: Current Every Day Smoker Years of Tobacco use: 59 Packs/Tins Daily: 1 Second Hand Smoke Exposure: Yes - Caffeine Use Caffeine Use: Reports: Coffee Caffeine Use Comment: decaf - Recreational Drug Use Recreational Drug Use: No - Living Situation & Occupation Living situation: Reports: , Alone Occupation: Retired ED ROS GENERAL - Review of Systems Review Of Systems: Comprehensive ROS is negative, except as noted in HPI. ED EXAM,LOWER BACK PAIN/INJURY - Physical Exam Exam: See Below Exam Limited By: No Limitations General Appearance: Alert, WD/WN, Mild Distress Eye Exam: Bilateral Eye: EOMI, Normal Inspection Ears: Normal External Exam, Hearing Grossly Normal Nose: Normal Inspection Throat/Mouth: Normal Inspection, Normal Voice, No Airway Compromise Head: Atraumatic, Normocephalic Neck: Normal Inspection, Supple, Non-Tender, Full Range of Motion Respiratory/Chest: No Respiratory Distress, Lungs Clear, No Accessory Muscle Use, Chest Non-Tender, Decreased Breath Sounds Cardiovascular: Normal Peripheral Pulses, Regular Rate, Rhythm, No Edema, No Gallop, No JVD, No Murmur, No Rub GI/Abdominal: Normal Bowel Sounds, Soft, Non-Tender (Male) Exam: Deferred Rectal (Males) Exam: Deferred Back Exam: Normal Inspection, Full Range of Motion, NT Extremities: Normal Inspection, No Pedal Edema, Normal Capillary Refill, Limited Range of Motion Neurological: Alert, Normal Mood/Affect, CN II-XII Intact, Normal Gait, No Motor/Sensory Deficits, Oriented x 3 Psychiatric: Normal Affect, Normal Mood Skin Exam: Warm, Dry, Intact, Normal Color, No Rash Lymphatic: No Adenopathy Course - Vital Signs Last Recorded V/S: Last Vital Signs Temp 98.1 F 06/29/20 19:48 Pulse 81 06/29/20 19:48 Resp 18 06/29/20 19:48 BP 175/91 H 06/29/20 19:48 Pulse Ox 92 L 06/29/20 19:48 - Orders/Labs/Meds Meds: Medications Discontinued Medications Generic Name Dose Route Start Last Admin Trade Name Ashleigh PRN Reason Stop Dose Admin Hydrocodone Bitart/Acetaminophen Confirm 06/29/20 20:56 Anderson 325-5 Mg Administered 06/29/20 20:57 Dose 2 tab .ROUTE .STK-MED ONE Dexamethasone 8 mg 06/29/20 20:16 06/29/20 20:24 Dexamethasone IM 06/29/20 20:17 8 mg ONETIME ONE Administration Departure - Departure Time of Disposition: 20:51 Disposition: Home, Self-Care 01 Condition: Fair Clinical Impression: Back pain Qualifiers: Back pain location: low back pain Chronicity: acute Back pain laterality: midline Sciatica presence: with sciatica Sciatica laterality: bilateral sciatica Qualified Code(s): M54.42 - Lumbago with sciatica, left side - Discharge Information *PRESCRIPTION DRUG MONITORING PROGRAM REVIEWED*: No *COPY OF PRESCRIPTION DRUG MONITORING REPORT IN PATIENT NGOC: No Instructions: Back Injury Prevention, [id number], Muscle Strain, [id number], Chronic Back Pain, [id number], Pain Medicine Instructions, [id number] Referrals: PCP,None [Primary Care Provider] - Forms: ED Department Discharge Additional Instructions: Rx: Anderson for pain, do not drive while taking this medication Try lidocaine patches or Salonpas patches , use as directed [facility] Sepsis Event Note (ED) - Evaluation Sepsis Screening Result: No Definite Risk - Focused Exam Vital Signs: Vital Signs Temp Pulse Resp BP Pulse Ox 06/29/20 19:48 98.1 F 81 18 175/91 H 92 L
[2020-06-29] MEDS ORDERED: Dexamethasone 4 MG/ML SDV IM ONE (20:16)
[2020-06-29] MEDS ORDERED: Acetaminophen/HYDROcodone 325-5 MG Tab ONE (20:56)
== END 2020-06-29 21:00 | disposition home or self-care (01) ==
LOC: DL.ED 18:58
DX: M54.42 Lumbago with sciatica, left side (principal); E03.9 Hypothyroidism, unspecified; F41.9 Anxiety disorder, unspecified; M19.90 Unspecified osteoarthritis, unspecified site; K21.9 Gastro-esophageal reflux disease without esophagitis; E78.00 Pure hypercholesterolemia, unspecified; J44.9 Chronic obstructive pulmonary disease, unspecified; I48.91 Unspecified atrial fibrillation; I25.10 Atherosclerotic heart disease of native coronary artery without angina pectoris; I10 Essential (primary) hypertension; F17.210 Nicotine dependence, cigarettes, uncomplicated; Z95.5 Presence of coronary angioplasty implant and graft; Z79.899 Other long term (current) drug therapy; Z88.8 Allergy status to other drugs, medicaments and biological substances; Z88.1 Allergy status to other antibiotic agents; Z88.5 Allergy status to narcotic agent; Z88.6 Allergy status to analgesic agent
CPT/HCPCS: 96372; 99283; J1100

== ENCOUNTER 2020-09-27 04:26 | Emergency (ER) | payer MEDICARE, MEDICAID, OTHER ==
--- NOTE | 2020-09-27 04:42 | EDM.PDOC ---
ED HPI GENERAL MEDICAL PROBLEM - General Chief Complaint: Cardiovascular Problem Stated Complaint: SOB,HIGH BP Time Seen by Provider: 09/27/20 04:41 Source of Information: Reports: Patient History Limitations: Reports: No Limitations - History of Present Illness INITIAL COMMENTS - FREE TEXT/NARRATIVE: woke up with rapid heart and sob. has copd and took an extra puff tonight but not getting better. - Related Data Allergies Allergy/AdvReac Type Severity Reaction Status Date / Time atenolol Allergy Swollen Verified 09/27/20 04:40 Tongue atorvastatin Allergy Cannot Verified 09/27/20 04:40 Remember candesartan Allergy Cannot Verified 09/27/20 04:40 Remember diltiazem Allergy Cannot Verified 09/27/20 04:40 Remember doxazosin Allergy Cannot Verified 09/27/20 04:40 Remember felodipine Allergy Cannot Verified 09/27/20 04:40 Remember formoterol [From Symbicort] Allergy Numbness Verified 09/27/20 04:40 hydralazine Allergy Cannot Verified 09/27/20 04:40 Remember labetalol Allergy Swollen Verified 09/27/20 04:40 Tongue lisinopril Allergy Cannot Verified 09/27/20 04:40 Remember metoprolol Allergy Swollen Verified 09/27/20 04:40 Tongue nifedipine Allergy Cannot Verified 09/27/20 04:40 Remember pravastatin Allergy Other Verified 09/27/20 04:40 Home Meds: Home Meds hydroCHLOROthiazide [Hydrochlorothiazide] 25 mg PO DAILY 11/08/14 [History] Clopidogrel Bisulfate [Clopidogrel] 75 mg PO DAILY 09/06/15 [History] Apixaban [Eliquis] 5 mg PO BID 12/16/16 [History] Fluticasone Furoate [Flonase Sensimist] 2 spray NASBOTH DAILY 07/16/17 [History] Rosuvastatin Calcium 5 mg PO BEDTIME 11/18/17 [History] Tiotropium [place] [Spiriva Respimat] 4 gm IH DAILY 11/18/17 [History] Albuterol Sulfate 1 dose INH Q6HR PRN 06/03/20 [History] Ezetimibe 5 mg PO DAILY 06/03/20 [History] Famotidine 20 mg PO DAILY 06/03/20 [History] Nicotine [Nicotine Patch] 21 mg TD DAILY 06/03/20 [History] guaiFENesin [Guaifenesin] 200 mg PO TID 06/03/20 [History] Acetaminophen [Tylenol Extra Strength] 500 mg PO Q4H 06/29/20 [History] Calcium Carbonate [Tums Extra Strength] 750 mg PO DAILY 06/29/20 [History] Cetirizine HCl [Zyrtec] 10 mg PO DAILY 06/29/20 [History] Cholecalciferol (Vitamin D3) [D3-50] 4,000 units PO 06/29/20 [History] Mometasone/Formoterol [Dulera 200-5 MCG] 2 puff INH BID 06/29/20 [History] Past Medical History HEENT History: Reports: Cataract Other HEENT History: wears glasses Cardiovascular History: Reports: Afib, Arrhythmia, CAD, High Cholesterol, Hypertension, Stents Other Cardiovascular History: 2 left leg and 1 right leg Respiratory History: Reports: COPD, Sleep Apnea Gastrointestinal History: Reports: GERD Genitourinary History: Reports: None Musculoskeletal History: Reports: Arthritis, Back Pain, Chronic Neurological History: Reports: None Psychiatric History: Reports: Anxiety Other Psychiatric History: occasional anxiety Endocrine/Metabolic History: Reports: Hypothyroidism Other Endocrine/Metabolic History: thyroid problems Hematologic History: Reports: Anemia Immunologic History: Reports: None Oncologic (Cancer) History: Reports: None Dermatologic History: Reports: Other (See Below) Other Dermatologic History: dry flaky skin to heels - Infectious Disease History Infectious Disease History: Reports: Chicken Pox, Measles, Mumps - Past Surgical History HEENT Surgical History: Reports: Cataract Surgery, Tonsillectomy Cardiovascular Surgical History: Reports: Coronary Artery Bypass, Vascular Surgery, Other (See Below) Other Cardiovascular Surgeries/Procedures: 3 bypass. bilateral popliteal artery aneurysm. s/p periphereal artery stent thrombosis Respiratory Surgical History: Reports: None GI Surgical History: Reports: Colonoscopy Male Surgical History: Reports: None Musculoskeletal Surgical History: Reports: None Social & Family History - Family History Family Medical History: No Pertinent Family History - Caffeine Use Caffeine Use: Reports: Coffee Caffeine Use Comment: decaf - Living Situation & Occupation Living situation: Reports: , Alone Occupation: Retired ED ROS GENERAL - Review of Systems Review Of Systems: Comprehensive ROS is negative, except as noted in HPI. ED EXAM, GENERAL - Physical Exam Exam: See Below Exam Limited By: No Limitations General Appearance: Alert, WD/WN, Mild Distress, Other (discomfort) Ears: Hearing Grossly Normal Throat/Mouth: Normal Voice, No Airway Compromise Head: Atraumatic Neck: Non-Tender, Full Range of Motion Respiratory/Chest: No Accessory Muscle Use, Rhonchi, Wheezing. No: Decreased Breath Sounds Cardiovascular: Tachycardia GI/Abdominal: Soft, Non-Tender (Male) Exam: Deferred Rectal (Males) Exam: Deferred Neurological: Alert, Oriented, Normal Cognition, Normal Gait, No Motor/Sensory Deficits Psychiatric: Normal Affect, Normal Mood Skin Exam: Warm, Dry, Normal Color Lymphatic: No Adenopathy Course - Vital Signs Last Recorded V/S: Last Vital Signs Temp 37.0 C 09/27/20 04:41 Pulse 140 H 09/27/20 04:41 Resp 22 H 09/27/20 04:41 BP 151/104 H 09/27/20 04:41 Pulse Ox 95 09/27/20 04:41 - Orders/Labs/Meds Orders: Active Orders 24 hr Category Date Time Status EKG Documentation Completion [RC] STAT Care 09/27/20 04:39 Active Diltiazem 125 mg Med 09/27/20 07:15 Ordered Sodium Chloride 0.9% [Normal Saline] 125 ml IV ASDIRECTED Labs: Laboratory Tests 09/27/20 09/27/20 Range/Units 04:39 04:39 WBC 9.0 (5.0-10.0) 10^3/uL RBC 5.57 (4.6-6.2) 10^6/uL Hgb 17.7 (14.0-18.0) g/dL Hct 51.0 (40.0-54.0) % MCV 91.6 (80-100) fL MCH 31.8 (27.0-34.0) pg MCHC 34.7 (33.0-35.0) g/dL Plt Count 213 (150-450) 10^3/uL Neut % (Auto) 50.3 (42.2-75.2) % Lymph % (Auto) 36.3 (20.5-50.1) % [place] % (Auto) 7.1 (2-8) % Eos % (Auto) 5.9 H (1.0-3.0) % Baso % (Auto) 0.4 (0.0-1.0) % Sodium 139 (136-145) mmol/L Potassium 3.7 (3.5-5.1) mmol/L Chloride 101 (98-107) mmol/L Carbon Dioxide 27 (21-32) mmol/L Anion Gap 14.7 H (7-13) mEq/L BUN 12 (7-18) mg/dL Creatinine 1.05 (0.70-1.30) mg/dL Est Cr Clr Drug Dosing 61.80 mL/min Estimated GFR (MDRD) > 60 BUN/Creatinine Ratio 11.4 (No establ ref range) Glucose 126 H (74-99) mg/dL Calcium 9.2 (8.5-10.1) mg/dL Total Bilirubin 0.3 (0.2-1.0) mg/dL AST 15 (15-37) U/L ALT 21 (16-63) U/L Alkaline Phosphatase 72 (46-116) U/L Troponin I < 0.017 (0.000-0.056) ng/mL B-Natriuretic Peptide 83 (0-100) pg/ml Total Protein 7.5 (6.4-8.2) g/dL Albumin 3.6 (3.4-5.0) g/dL Globulin 3.9 Albumin/Globulin Ratio 0.9 Meds: Medications Discontinued Medications Generic Name Dose Route Start Last Admin Trade Name Freq PRN Reason Stop Dose Admin Adenosine 6 mg 09/27/20 05:30 09/27/20 05:43 Adenocard IVPUSH 09/27/20 05:31 6 mg NOW ONE Administration Amiodarone HCl 150 mg 09/27/20 06:00 09/27/20 06:10 Cordarone IVPUSH 09/27/20 06:01 150 mg ONETIME ONE Administration Diltiazem HCl 10 mg 09/27/20 05:02 09/27/20 05:08 Diltiazem IVPUSH 09/27/20 05:03 10 mg ONETIME ONE Administration Diltiazem HCl 10 mg 09/27/20 05:13 09/27/20 05:17 Diltiazem IVPUSH 09/27/20 05:14 10 mg ONETIME ONE Administration Diltiazem HCl 10 mg 09/27/20 05:12 09/27/20 05:19 Diltiazem IVPUSH 09/27/20 05:13 Not Given ONETIME ONE Sodium Chloride 1,000 mls @ 999 mls/hr 09/27/20 05:33 09/27/20 05:43 Normal Saline IV 09/27/20 06:33 999 mls/hr .BOLUS ONE Administration - Re-Assessments/Exams Free Text/Narrative Re-Assessment/Exam: 09/27/20 07:[address] Huynh @ who kindly accepted pt Departure - Departure Time of Disposition: 07:11 Disposition: DC/Tfer to Acute Hospital 02 Reason for Transfer *Q: Other Condition: Fair Clinical Impression: SVT (supraventricular tachycardia), Wide-complex tachycardia Forms: Interfacility Transfer EMTALA Sepsis Event Note (ED) - Focused Exam Vital Signs: Vital Signs Temp Pulse Resp BP Pulse Ox 09/27/20 04:41 37.0 C 140 H 22 H 151/104 H 95 - My Orders Last 24 Hours: My Active Orders 09/27/20 04:39 EKG Documentation Completion [RC] STAT 09/27/20 07:15 Diltiazem 125 mg Sodium Chloride 0.9% [Normal Saline] 125 ml IV ASDIRECTED - Assessment/Plan Last 24 Hours: My Active Orders 09/27/20 04:39 EKG Documentation Completion [RC] STAT 09/27/20 07:15 Diltiazem 125 mg Sodium Chloride 0.9% [Normal Saline] 125 ml IV ASDIRECTED
[2020-09-27 04:44] VITALS: BP 151/104; PULSE 140
[2020-09-27] MEDS ORDERED: Diltiazem 25 MG/5 ML SDV IVPUSH ONE ×3 (05:02→05:13)
[2020-09-27 05:08] LABS: ANION GAP 14.7 mEq/L (7-13); CHLORIDE,CL 101 mmol/L (98-107); SODIUM,NA 139 mmol/L (136-145)
--- NOTE | 2020-09-27 05:27 | CR ---
PROCEDURE INFORMATION: Exam: XR Chest, 1 View Exam date and time: 09/27/2020 4:54 AM Age: 75 years old Clinical indication: Shortness of breath; Additional info: SOB TECHNIQUE: Imaging protocol: XR of the chest Views: 1 view. COMPARISON: CR Chest 2V 06/18/2020 11:56 AM FINDINGS: Lungs: Chronic scarring left lung base.. No consolidation. Pleural space: Unremarkable. No pleural effusion. No pneumothorax. Heart/Mediastinum: Unremarkable. No cardiomegaly. Bones/joints: Unremarkable. IMPRESSION: 1. No acute findings. 2. Chronic scarring is noted in the left lung base. 3. Status post open heart surgery
[2020-09-27] MEDS ORDERED: Adenosine 6 MG/2 ML SDV IVPUSH ONE (05:30)
[2020-09-27] MEDS ORDERED: Sodium Chloride 0.9% 1,000 ML IV ONE (05:33)
[2020-09-27] MEDS ORDERED: Amiodarone 150 MG/3 ML SDV IVPUSH ONE (06:00)
[2020-09-27] MEDS ORDERED: Diltiazem 125 MG in Sodium Chloride 0.9% 125 ML IV SCH (07:15)
== END 2020-09-27 09:34 ==
LOC: DL.ED 04:26
DX: I47.1 Supraventricular tachycardia (principal); I25.10 Atherosclerotic heart disease of native coronary artery without angina pectoris; I48.91 Unspecified atrial fibrillation; E78.00 Pure hypercholesterolemia, unspecified; I10 Essential (primary) hypertension; J44.9 Chronic obstructive pulmonary disease, unspecified; E03.9 Hypothyroidism, unspecified; K21.9 Gastro-esophageal reflux disease without esophagitis; Z88.8 Allergy status to other drugs, medicaments and biological substances; Z79.01 Long term (current) use of anticoagulants; Z79.02 Long term (current) use of antithrombotics/antiplatelets; Z79.899 Other long term (current) drug therapy
CPT/HCPCS: 36415; 71045; 80053; 83880; 84484; 85025; 93005; 96365; 96366; 96374; 96375; 96376; 99283; 99285; J0153; J0282; J3490; J7030

== ENCOUNTER 2020-10-23 21:41 | Emergency (ER) | payer MEDICARE, OTHER, MEDICAID ==
[2020-10-23] MEDS ORDERED: Adenosine 6 MG/2 ML SDV IVPUSH ONE ×2 (21:55→22:00)
[2020-10-23] MEDS ORDERED: Adenosine 6 MG/2 ML SDV ONE (21:56)
[2020-10-23] MEDS ORDERED: Adenosine 12 MG/4 ML SDV ONE (22:00)
[2020-10-23] MEDS ORDERED: Ondansetron 4 MG/2 ML SDV IVPUSH ONE (22:03)
[2020-10-23] MEDS ORDERED: Diltiazem 25 MG/5 ML SDV IVPUSH ONE ×3 (22:03→23:32)
[2020-10-23] MEDS ORDERED: Ondansetron 4 MG/2 ML SDV ONE (22:04)
[2020-10-23] MEDS ORDERED: Diltiazem 25 MG/5 ML SDV ONE (22:05)
--- NOTE | 2020-10-23 22:06 | EDM.PDOC ---
ED HPI GENERAL MEDICAL PROBLEM - General Chief Complaint: Cardiovascular Problem Stated Complaint: HEART RATE ELEVATEED Time Seen by Provider: 10/23/20 22:05 Source of Information: Reports: Patient History Limitations: Reports: No Limitations - History of Present Illness INITIAL COMMENTS - FREE TEXT/NARRATIVE: return for elevated BP & HR. denies CP/SOB presently. - Related Data Allergies Allergy/AdvReac Type Severity Reaction Status Date / Time atenolol Allergy Swollen Verified 09/27/20 04:40 Tongue atorvastatin Allergy Cannot Verified 09/27/20 04:40 Remember candesartan Allergy Cannot Verified 09/27/20 04:40 Remember diltiazem Allergy Cannot Verified 09/27/20 04:40 Remember doxazosin Allergy Cannot Verified 09/27/20 04:40 Remember felodipine Allergy Cannot Verified 09/27/20 04:40 Remember formoterol [From Symbicort] Allergy Numbness Verified 09/27/20 04:40 hydralazine Allergy Cannot Verified 09/27/20 04:40 Remember labetalol Allergy Swollen Verified 09/27/20 04:40 Tongue lisinopril Allergy Cannot Verified 09/27/20 04:40 Remember metoprolol Allergy Swollen Verified 09/27/20 04:40 Tongue nifedipine Allergy Cannot Verified 09/27/20 04:40 Remember pravastatin Allergy Other Verified 09/27/20 04:40 Home Meds: Home Meds hydroCHLOROthiazide [Hydrochlorothiazide] 25 mg PO DAILY 11/08/14 [History] Clopidogrel Bisulfate [Clopidogrel] 75 mg PO DAILY 09/06/15 [History] Apixaban [Eliquis] 5 mg PO BID 12/16/16 [History] Fluticasone Furoate [Flonase Sensimist] 2 spray NASBOTH DAILY 07/16/17 [History] Rosuvastatin Calcium 5 mg PO BEDTIME 11/18/17 [History] Tiotropium [place] [Spiriva Respimat] 4 gm IH DAILY 11/18/17 [History] Albuterol Sulfate 1 dose INH Q6HR PRN 06/03/20 [History] Ezetimibe 5 mg PO DAILY 06/03/20 [History] Famotidine 20 mg PO DAILY 06/03/20 [History] Nicotine [Nicotine Patch] 21 mg TD DAILY 06/03/20 [History] guaiFENesin [Guaifenesin] 200 mg PO TID 06/03/20 [History] Acetaminophen [Tylenol Extra Strength] 500 mg PO Q4H 06/29/20 [History] Calcium Carbonate [Tums Extra Strength] 750 mg PO DAILY 06/29/20 [History] Cetirizine HCl [Zyrtec] 10 mg PO DAILY 06/29/20 [History] Cholecalciferol (Vitamin D3) [D3-50] 4,000 units PO 06/29/20 [History] Mometasone/Formoterol [Dulera 200-5 MCG] 2 puff INH BID 06/29/20 [History] Past Medical History HEENT History: Reports: Cataract Other HEENT History: wears glasses Cardiovascular History: Reports: Afib, Arrhythmia, CAD, High Cholesterol, Hypertension, Stents Other Cardiovascular History: 2 left leg and 1 right leg Respiratory History: Reports: COPD, Sleep Apnea Gastrointestinal History: Reports: GERD Genitourinary History: Reports: None Musculoskeletal History: Reports: Arthritis, Back Pain, Chronic Neurological History: Reports: None Psychiatric History: Reports: Anxiety Other Psychiatric History: occasional anxiety Endocrine/Metabolic History: Reports: Hypothyroidism Other Endocrine/Metabolic History: thyroid problems Hematologic History: Reports: Anemia Immunologic History: Reports: None Oncologic (Cancer) History: Reports: None Dermatologic History: Reports: Other (See Below) Other Dermatologic History: dry flaky skin to heels - Infectious Disease History Infectious Disease History: Reports: Chicken Pox, Measles, Mumps - Past Surgical History HEENT Surgical History: Reports: Cataract Surgery, Tonsillectomy Cardiovascular Surgical History: Reports: Coronary Artery Bypass, Vascular Surgery, Other (See Below) Other Cardiovascular Surgeries/Procedures: 3 bypass. bilateral popliteal artery aneurysm. s/p periphereal artery stent thrombosis Respiratory Surgical History: Reports: None GI Surgical History: Reports: Colonoscopy Male Surgical History: Reports: None Musculoskeletal Surgical History: Reports: None Social & Family History - Family History Family Medical History: No Pertinent Family History - Caffeine Use Caffeine Use: Reports: None Caffeine Use Comment: decaf - Living Situation & Occupation Living situation: Reports: , Alone Occupation: Retired ED ROS GENERAL - Review of Systems Review Of Systems: Comprehensive ROS is negative, except as noted in HPI. ED EXAM, GENERAL - Physical Exam Exam: See Below Exam Limited By: No Limitations General Appearance: Alert, WD/WN, Mild Distress, Other (discomfort) Ears: Hearing Grossly Normal Throat/Mouth: Normal Voice, No Airway Compromise Head: Atraumatic Neck: Non-Tender, Full Range of Motion Respiratory/Chest: No Respiratory Distress Cardiovascular: Tachycardia GI/Abdominal: Soft, Non-Tender (Male) Exam: Deferred Rectal (Males) Exam: Deferred Back Exam: Full Range of Motion Extremities: Normal Range of Motion Neurological: Alert, Oriented, Normal Cognition, Normal Gait, No Motor/Sensory Deficits Psychiatric: Normal Affect, Normal Mood Skin Exam: Warm, Dry, Normal Color Lymphatic: No Adenopathy Course - Vital Signs Last Recorded V/S: Last Vital Signs Temp 37.1 C 10/23/20 21:46 Pulse 71 10/24/20 00:14 Resp 19 10/24/20 00:14 BP 109/71 10/24/20 00:14 Pulse Ox 96 10/24/20 00:14 - Orders/Labs/Meds Orders: Active Orders 24 hr Category Date Time Status Diltiazem 125 mg Med 10/23/20 22:15 Active Sodium Chloride 0.9% [Normal Saline] 100 ml IV TITRATE Sodium Chloride 0.9% [Normal Saline] 1,000 ml Med 10/24/20 00:15 Active IV ASDIRECTED Medication Orders Diltiazem HCl 125 mg/ Sodium (Chloride) 125 mls @ 5 mls/hr IV TITRATE ANANT; Protocol Last Titration: 10/24/20 00:13 Dose: 0 mg/hr, 0 mls/hr Documented by: [email or web address] Titration: 10/23/20 23:34 Dose: 10 mg/hr, 10 mls/hr Documented by: [id number] Admin: 10/23/20 22:17 Dose: 5 mg/hr, 5 mls/hr Documented by: [email or web address] Sodium Chloride (Normal Saline) 1,000 mls @ 100 mls/hr IV ASDIRECTED ANANT Stop: 10/28/20 00:08 Labs: Laboratory Tests 10/23/20 10/23/20 10/23/20 Range/Units 22:10 22:17 22:17 WBC 9.4 (5.0-10.0) 10^3/uL RBC 5.34 (4.6-6.2) 10^6/uL Hgb 16.6 (14.0-18.0) g/dL Hct 48.0 (40.0-54.0) % MCV 89.9 (80-100) fL MCH 31.1 (27.0-34.0) pg MCHC 34.6 (33.0-35.0) g/dL Plt Count 241 (150-450) 10^3/uL Neut % (Auto) 49.2 (42.2-75.2) % Lymph % (Auto) 39.7 (20.5-50.1) % [place] % (Auto) 7.3 (2-8) % Eos % (Auto) 3.4 H (1.0-3.0) % Baso % (Auto) 0.4 (0.0-1.0) % Sodium 138 (136-145) mmol/L Potassium 3.2 L (3.5-5.1) mmol/L Chloride 102 (98-107) mmol/L Carbon Dioxide 27 (21-32) mmol/L Anion Gap 12.2 (7-13) mEq/L BUN 16 (7-18) mg/dL Creatinine 1.06 (0.70-1.30) mg/dL Est Cr Clr Drug Dosing 61.22 mL/min Estimated GFR (MDRD) > 60 BUN/Creatinine Ratio 15.1 (No establ ref range) Glucose 97 (74-99) mg/dL Calcium 8.8 (8.5-10.1) mg/dL Total Bilirubin 0.3 (0.2-1.0) mg/dL AST 11 L (15-37) U/L ALT 16 (16-63) U/L Alkaline Phosphatase 67 (46-116) U/L Troponin I < 0.017 (0.000-0.056) ng/mL B-Natriuretic Peptide 55 (0-100) pg/ml Total Protein 6.8 (6.4-8.2) g/dL Albumin 3.3 L (3.4-5.0) g/dL Globulin 3.5 Albumin/Globulin Ratio 0.94 SARS-CoV-2 RNA (MYRA) Negative (NEGATIVE) Meds: Medications Generic Name Dose Route Start Last Admin Trade Name Freq PRN Reason Stop Dose Admin Diltiazem HCl 125 mg/ Sodium 125 mls @ 5 mls/hr 10/23/20 22:15 10/24/20 00:13 Chloride IV 0 mg/hr TITRATE ANANT 0 mls/hr Titration Protocol 5 MG/HR Sodium Chloride 1,000 mls @ 100 mls/hr 10/24/20 00:15 Normal Saline IV 10/28/20 00:08 ASDIRECTED ANANT Discontinued Medications Generic Name Dose Route Start Last Admin Trade Name [place] PRN Reason Stop Dose Admin Adenosine Confirm 10/23/20 21:56 10/23/20 22:23 Adenocard Administered 10/23/20 21:57 Not Given Dose 6 mg .ROUTE .STK-MED ONE Adenosine Confirm 10/23/20 22:00 10/23/20 22:23 Adenocard Administered 10/23/20 22:01 Not Given Dose 12 mg .ROUTE .STK-MED ONE Adenosine 6 mg 10/23/20 21:55 10/23/20 21:58 Adenocard IVPUSH 10/23/20 21:56 6 mg NOW ONE Administration Adenosine 12 mg 10/23/20 22:00 10/23/20 22:01 Adenocard IVPUSH 10/23/20 22:01 12 mg NOW ONE Administration Diltiazem HCl 20 mg 10/23/20 22:03 10/23/20 22:06 Diltiazem IVPUSH 10/23/20 22:04 20 mg ONETIME ONE Administration Diltiazem HCl Confirm 10/23/20 22:05 10/23/20 22:23 Diltiazem Administered 10/23/20 22:06 Not Given Dose 25 mg .ROUTE .STK-MED ONE Diltiazem HCl 20 mg 10/23/20 23:20 10/23/20 23:33 Diltiazem IVPUSH 10/23/20 23:21 Not Given ONETIME ONE Diltiazem HCl 5 mg 10/23/20 23:32 10/23/20 23:25 Diltiazem IVPUSH 10/23/20 23:33 5 mg ONETIME ONE Administration Ondansetron HCl 4 mg 10/23/20 22:03 10/23/20 22:05 Zofran IVPUSH 10/23/20 22:04 4 mg ONETIME ONE Administration Ondansetron HCl Confirm 10/23/20 22:04 10/23/20 22:23 Zofran Administered 10/23/20 22:05 Not Given Dose 4 mg .ROUTE .STK-MED ONE - Re-Assessments/Exams Free Text/Narrative Re-Assessment/Exam: 10/24/20 00:[address] Matthews @ who kindly accepted pt. Departure - Departure Time of Disposition: 00:56 Disposition: DC/Tfer to Acute Hospital 02 Reason for Transfer *Q: Other Condition: Fair Clinical Impression: SVT (supraventricular tachycardia) Forms: Interfacility Transfer EMTALA Sepsis Event Note (ED) - Evaluation Sepsis Screening Result: No Definite Risk - Focused Exam Vital Signs: Vital Signs Temp Pulse Resp BP Pulse Ox 10/24/20 00:14 71 19 109/71 96 10/23/20 23:17 137 H 17 116/63 96 10/23/20 21:46 37.1 C 139 H 17 169/100 H 96 - My Orders Last 24 Hours: My Active Orders 10/23/20 22:15 Diltiazem 125 mg Sodium Chloride 0.9% [Normal Saline] 100 ml IV TITRATE 10/24/20 00:15 Sodium Chloride 0.9% [Normal Saline] 1,000 ml IV ASDIRECTED - Assessment/Plan Last 24 Hours: My Active Orders 10/23/20 22:15 Diltiazem 125 mg Sodium Chloride 0.9% [Normal Saline] 100 ml IV TITRATE 10/24/20 00:15 Sodium Chloride 0.9% [Normal Saline] 1,000 ml IV ASDIRECTED
[2020-10-23] MEDS ORDERED: Diltiazem 125 MG in Sodium Chloride 0.9% 100 ML IV SCH (22:15)
--- NOTE | 2020-10-23 22:39 | CR ---
PROCEDURE INFORMATION: Exam: XR Chest, 1 View Exam date and time: 10/23/2020 10:31 PM Age: 75 years old Clinical indication: Dyspnea; Additional info: Rapid heart hard to breath TECHNIQUE: Imaging protocol: XR of the chest Views: 1 view. Total images: 1 COMPARISON: CR Chest 1V Frontal 09/27/2020 4:54 AM FINDINGS: Lungs: Unremarkable. No consolidation. Pleural spaces: Probable chronic thickening left costophrenic angle. Heart/Mediastinum: Unremarkable. No cardiomegaly. Bones/joints: Sternotomy wires. IMPRESSION: No acute process.
[2020-10-23 22:46] LABS: ANION GAP 12.2 mEq/L (7-13); CHLORIDE,CL 102 mmol/L (98-107); SODIUM,NA 138 mmol/L (136-145)
[2020-10-24 00:14] VITALS: BP 109/71; PULSE 71
[2020-10-24] MEDS ORDERED: Sodium Chloride 0.9% 1,000 ML IV SCH (00:15)
[2020-10-24] MEDS ORDERED: LORazepam 2 MG/ML SDV IVPUSH ONE (01:28)
== END 2020-10-24 01:53 ==
LOC: DL.ED 21:41
DX: I47.1 Supraventricular tachycardia (principal); I10 Essential (primary) hypertension; E78.00 Pure hypercholesterolemia, unspecified; I25.10 Atherosclerotic heart disease of native coronary artery without angina pectoris; J44.9 Chronic obstructive pulmonary disease, unspecified; K21.9 Gastro-esophageal reflux disease without esophagitis; I48.91 Unspecified atrial fibrillation; Z88.8 Allergy status to other drugs, medicaments and biological substances; Z79.02 Long term (current) use of antithrombotics/antiplatelets; Z79.01 Long term (current) use of anticoagulants; Z79.899 Other long term (current) drug therapy; Z20.822 Contact with and (suspected) exposure to COVID-19; R06.02 Shortness of breath
CPT/HCPCS: 36415; 71045; 80053; 83880; 84484; 85025; 96365; 96366; 96375; 99283; 99285; J0153; J2060; J2405; J3490; U0002

== ENCOUNTER 2020-11-01 17:45 | Emergency (ER) | payer MEDICARE, MEDICAID, OTHER ==
[2020-11-01 18:02] VITALS: BP 164/87; PULSE 83
--- NOTE | 2020-11-01 18:31 | EDM.PDOC ---
Scribed by Merlene Arizmendi 11/01/[address] MD ED HPI GENERAL MEDICAL PROBLEM - General Chief Complaint: Cardiovascular Problem Stated Complaint: HAD PACE MAKER ERIC CANT BREATH Time Seen by Provider: 11/01/20 18:03 Source of Information: Reports: Patient, RN, RN Notes Reviewed History Limitations: Reports: No Limitations - History of Present Illness INITIAL COMMENTS - FREE TEXT/NARRATIVE: Patient presents to ED by POV with complaint of shortness of breath status post pacemaker insertion. Patient states he had a leadless right ventricular p acemaker put in 10/23/20. Patient states that he has been checking his blood pressure and pulse but has noticed that he is increasingly short of breath. Patient states that he has taken a Lorazepam to help with his anxiety. Patient denies pain, CP, fever, chills, or cough. Now in the ER he feels that his Lorazepam is "kicking in" and his shortness of breath is resolving. 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: Other Medication(s) (Lorazepam) - Related Data Allergies Allergy/AdvReac Type Severity Reaction Status Date / Time atenolol Allergy Swollen Verified 11/01/20 17:52 Tongue atorvastatin Allergy Cannot Verified 11/01/20 17:52 Remember candesartan Allergy Cannot Verified 11/01/20 17:52 Remember diltiazem Allergy Cannot Verified 11/01/20 17:52 Remember doxazosin Allergy Cannot Verified 11/01/20 17:52 Remember felodipine Allergy Cannot Verified 11/01/20 17:52 Remember formoterol [From Symbicort] Allergy Numbness Verified 11/01/20 17:52 hydralazine Allergy Cannot Verified 11/01/20 17:52 Remember labetalol Allergy Swollen Verified 11/01/20 17:52 Tongue lisinopril Allergy Cannot Verified 11/01/20 17:52 Remember metoprolol Allergy Swollen Verified 11/01/20 17:52 Tongue nifedipine Allergy Cannot Verified 11/01/20 17:52 Remember pravastatin Allergy Other Verified 11/01/20 17:52 Home Meds: Home Meds hydroCHLOROthiazide [Hydrochlorothiazide] 25 mg PO DAILY 11/08/14 [History] Clopidogrel Bisulfate [Clopidogrel] 75 mg PO DAILY 09/06/15 [History] Apixaban [Eliquis] 5 mg PO BID 12/16/16 [History] Fluticasone Furoate [Flonase Sensimist] 2 spray NASBOTH DAILY 07/16/17 [History] Rosuvastatin Calcium 5 mg PO BEDTIME 11/18/17 [History] Tiotropium [place] [Spiriva Respimat] 4 gm IH DAILY 11/18/17 [History] Albuterol Sulfate 1 dose INH Q6HR PRN 06/03/20 [History] Ezetimibe 5 mg PO DAILY 06/03/20 [History] Famotidine 20 mg PO DAILY 06/03/20 [History] Nicotine [Nicotine Patch] 21 mg TD DAILY 06/03/20 [History] guaiFENesin [Guaifenesin] 200 mg PO TID 06/03/20 [History] Acetaminophen [Tylenol Extra Strength] 500 mg PO Q4H 06/29/20 [History] Calcium Carbonate [Tums Extra Strength] 750 mg PO DAILY 06/29/20 [History] Cetirizine HCl [Zyrtec] 10 mg PO DAILY 06/29/20 [History] Cholecalciferol (Vitamin D3) [D3-50] 4,000 units PO 06/29/20 [History] Mometasone/Formoterol [Dulera 200-5 MCG] 2 puff INH BID 06/29/20 [History] Past Medical History HEENT History: Reports: Cataract Other HEENT History: wears glasses Cardiovascular History: Reports: Afib, Arrhythmia (Tachy Jacques Syndrome), CAD, High Cholesterol, Hypertension, Pacemaker, SOB on Exertion, Stents Other Cardiovascular History: 2 left leg and 1 right leg Respiratory History: Reports: COPD, Sleep Apnea Gastrointestinal History: Reports: GERD Genitourinary History: Reports: None Musculoskeletal History: Reports: Arthritis, Back Pain, Chronic Neurological History: Reports: None Psychiatric History: Reports: Anxiety Other Psychiatric History: occasional anxiety Endocrine/Metabolic History: Reports: Hypothyroidism Other Endocrine/Metabolic History: thyroid problems Hematologic History: Reports: Anemia Immunologic History: Reports: None Oncologic (Cancer) History: Reports: None Dermatologic History: Reports: Other (See Below) Other Dermatologic History: dry flaky skin to heels - Infectious Disease History Infectious Disease History: Reports: Chicken Pox, Measles, Mumps - Past Surgical History HEENT Surgical History: Reports: Cataract Surgery, Tonsillectomy Cardiovascular Surgical History: Reports: Coronary Artery Bypass, Pacer, Vascular Surgery, Other (See Below) Other Cardiovascular Surgeries/Procedures: 3 bypass. bilateral popliteal artery aneurysm. s/p periphereal artery stent thrombosis Respiratory Surgical History: Reports: None GI Surgical History: Reports: Colonoscopy Male Surgical History: Reports: None Musculoskeletal Surgical History: Reports: None Social & Family History - Family History Family Medical History: No Pertinent Family History - Tobacco Use Tobacco Use Status *Q: Current Every Day Tobacco User Years of Tobacco use: 50 Packs/Tins Daily: 0.5 - Caffeine Use Caffeine Use: Reports: Coffee Caffeine Use Comment: decaf - Recreational Drug Use Recreational Drug Use: No - Living Situation & Occupation Living situation: Reports: , Alone Occupation: Retired ED ROS GENERAL - Review of Systems Review Of Systems: Comprehensive ROS is negative, except as noted in HPI. ED EXAM, GENERAL - Physical Exam Exam: See Below Exam Limited By: No Limitations General Appearance: Alert, No Apparent Distress, Anxious Eye Exam: Bilateral Eye: Normal Inspection Nose: Normal Inspection Throat/Mouth: Normal Voice, No Airway Compromise Head: Atraumatic, Normocephalic Neck: Normal Inspection, Non-Tender Respiratory/Chest: No Respiratory Distress, No Accessory Muscle Use, Chest Non- Tender, Decreased Breath Sounds, Crackles (Coarse breath sounds). No: Rales, Rhonchi, Wheezing, Stridor Cardiovascular: Regular Rate, Rhythm, No Edema, Extra Beats (Occasional) GI/Abdominal: Normal Bowel Sounds, Soft, Non-Tender Back Exam: Normal Inspection Extremities: Normal Inspection, Normal Range of Motion, Non-Tender, Normal Capillary Refill, No Pedal Edema Neurological: Alert, Oriented, CN II-XII Intact, Normal Cognition, Normal Gait, No Motor/Sensory Deficits Psychiatric: Anxious Skin Exam: Warm, Dry, Intact, Normal Color, No Rash #1 Interpretation EKG Date: 11/01/20 Time: 18:08 Rhythm: Other (sinus rhythm, with single PVC.) Rate (Beats/Min): 80 [place]: Normal P-Wave: Present (left atrial enlargement.) QRS: RBBB ST-T: Normal QT: Normal Comparison: No Change Course - Vital Signs Last Recorded V/S: Last Vital Signs Temp 97.3 F 11/01/20 17:59 Pulse 94 11/01/20 17:59 Resp 15 11/01/20 17:59 BP 173/99 H 11/01/20 17:59 Pulse Ox 94 L 11/01/20 17:59 - Orders/Labs/Meds Orders: Active Orders 24 hr Category Date Time Status EKG 12 Lead [EKG Documentation Completion] [RC] STAT Care 11/01/20 17:59 Active Labs: Laboratory Tests 11/01/20 11/01/20 Range/Units 18:13 18:13 WBC 7.6 (5.0-10.0) 10^3/uL RBC 5.20 (4.6-6.2) 10^6/uL Hgb 16.3 (14.0-18.0) g/dL Hct 46.7 (40.0-54.0) % MCV 89.8 (80-100) fL MCH 31.3 (27.0-34.0) pg MCHC 34.9 (33.0-35.0) g/dL Plt Count 197 (150-450) 10^3/uL Neut % (Auto) 52.4 (42.2-75.2) % Lymph % (Auto) 37.2 (20.5-50.1) % [place] % (Auto) 7.3 (2-8) % Eos % (Auto) 2.6 (1.0-3.0) % Baso % (Auto) 0.5 (0.0-1.0) % Sodium 138 (136-145) mmol/L Potassium 3.7 (3.5-5.1) mmol/L Chloride 101 (98-107) mmol/L Carbon Dioxide 28 (21-32) mmol/L Anion Gap 12.7 (7-13) mEq/L BUN 19 H (7-18) mg/dL Creatinine 0.91 (0.70-1.30) mg/dL Est Cr Clr Drug Dosing 73.55 mL/min Estimated GFR (MDRD) > 60 BUN/Creatinine Ratio 20.9 (No establ ref range) Glucose 90 (74-99) mg/dL Calcium 8.7 (8.5-10.1) mg/dL Magnesium 1.9 (1.8-2.4) mg/dL Total Bilirubin 0.5 (0.2-1.0) mg/dL AST 25 (15-37) U/L ALT 22 (16-63) U/L Alkaline Phosphatase 61 (46-116) U/L Troponin I < 0.017 (0.000-0.056) ng/mL Total Protein 7.5 (6.4-8.2) g/dL Albumin 3.6 (3.4-5.0) g/dL Globulin 3.9 Albumin/Globulin Ratio 0.9 - Radiology Interpretation Free Text/Narrative:: XR Chest: chronic appearing COPD changes, no acute process per Rad. report. Departure - Departure Time of Disposition: 19:09 Disposition: Home, Self-Care 01 Condition: Good Clinical Impression: Encounter for medical screening examination, Anxiety about health COPD (chronic obstructive pulmonary disease) Qualifiers: COPD type: chronic bronchitis Chronic bronchitis type: unspecified Qualified Code(s): J42 - Unspecified chronic bronchitis Instructions: Shortness of Breath, Adult, [id number], Chronic Obstructive Pulmonary Disease, [id number] Forms: ED Department Discharge Additional Instructions: Continue your current medications. Follow up with cardiology as planned. Sepsis Event Note (ED) - Evaluation Sepsis Screening Result: No Definite Risk - Focused Exam Vital Signs: Vital Signs Temp Pulse Pulse Resp BP Pulse Ox 11/01/20 17:59 97.3 F 94 15 173/99 H 94 L 11/01/20 17:56 98.6 F 83 20 164/87 H 95 - My Orders Last 24 Hours: My Active Orders 11/01/20 17:59 EKG 12 Lead [EKG Documentation Completion] [RC] STAT - Assessment/Plan Last 24 Hours: My Active Orders 11/01/20 17:59 EKG 12 Lead [EKG Documentation Completion] [RC] STAT I have read and agree with the documentation that has been completed regarding this visit. By signing this record, I attest that the documentation was completed in my physical presence and is an accurate record of the encounter.
[2020-11-01 18:47] LABS: ANION GAP 12.7 mEq/L (7-13); CHLORIDE,CL 101 mmol/L (98-107); SODIUM,NA 138 mmol/L (136-145)
--- NOTE | 2020-11-01 18:49 | CR ---
PROCEDURE INFORMATION: Exam: XR Chest, 1 View Exam date and time: 11/01/2020 6:42 PM Age: 75 years old Clinical indication: Shortness of breath TECHNIQUE: Imaging protocol: XR of the chest Views: 1 view. COMPARISON: CR Chest 1V Frontal 10/23/2020 10:31 PM FINDINGS: Lungs: There is mild increase in interstitial markings within the lungs. This is nonspecific. No pneumonia or pulmonary edema is present. Pleural spaces: Trace pleural fluid or chronic pleural thickening on the left. Heart/Mediastinum: Postoperative change compatible with prior cardiac surgery. Heart size is within the normal range. Bones/joints: Unremarkable. IMPRESSION: 1. Chronic appearing interstitial change with chronic pleural thickening or small pleural effusion on the left. No pneumonia or pulmonary edema present.
== END 2020-11-01 19:20 | disposition home or self-care (01) ==
LOC: DL.ED 17:45
DX: J42 Unspecified chronic bronchitis (principal); F41.9 Anxiety disorder, unspecified; I48.91 Unspecified atrial fibrillation; I25.10 Atherosclerotic heart disease of native coronary artery without angina pectoris; E78.00 Pure hypercholesterolemia, unspecified; I10 Essential (primary) hypertension; K21.9 Gastro-esophageal reflux disease without esophagitis; I45.10 Unspecified right bundle-branch block; Z72.0 Tobacco use; Z95.0 Presence of cardiac pacemaker; Z88.8 Allergy status to other drugs, medicaments and biological substances; Z79.02 Long term (current) use of antithrombotics/antiplatelets; Z79.01 Long term (current) use of anticoagulants; Z79.899 Other long term (current) drug therapy
CPT/HCPCS: 36415; 71045; 80053; 83735; 84484; 85025; 93005; 93010; 99284; 99285-25

== ENCOUNTER 2021-04-01 17:36 | Emergency (ER) | payer OTHER, MEDICARE, MEDICAID ==
[2021-04-01 17:54] VITALS: BP 157/75; PULSE 60
--- NOTE | 2021-04-01 19:56 | EDM.PDOC ---
<Eddie Renae - Last Filed: 04/01/21 20:59> ED HPI GENERAL MEDICAL PROBLEM - General Chief Complaint: Respiratory Problem Stated Complaint: BREATHING Time Seen by Provider: 04/01/21 19:50 Source of Information: Reports: Patient History Limitations: Reports: No Limitations - History of Present Illness INITIAL COMMENTS - FREE TEXT/NARRATIVE: Patient is a 75 yo male that presents for a 2-3 day history of worsening SOB associated with cough and sputum production. Patient has COPD, not on home O2, he tried his home inhalers with minimal benefit so he presented to the ED. On presentation his O2 sats are 96% on RA. Patient was previously on Ativan PRN for anxiety and trouble breathing, but he stopped that yesterday. No sick contacts. Current smoker. He has received his COVID vaccination. Denies fever, chills, chest pain, congestion, headache, abdominal pain, N/V, or changes in bowel/bladder. 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 Treatments - Related Data Allergies Allergy/AdvReac Type Severity Reaction Status Date / Time atenolol Allergy Swollen Verified 04/01/21 17:53 Tongue atorvastatin Allergy Cannot Verified 04/01/21 17:53 Remember candesartan Allergy Cannot Verified 04/01/21 17:53 Remember diltiazem Allergy Cannot Verified 04/01/21 17:53 Remember doxazosin Allergy Cannot Verified 04/01/21 17:53 Remember felodipine Allergy Cannot Verified 04/01/21 17:53 Remember formoterol [From Symbicort] Allergy Numbness Verified 04/01/21 17:53 hydralazine Allergy Cannot Verified 04/01/21 17:53 Remember labetalol Allergy Swollen Verified 04/01/21 17:53 Tongue lisinopril Allergy Cannot Verified 04/01/21 17:53 Remember metoprolol Allergy Swollen Verified 11/01/20 17:52 Tongue nifedipine Allergy Cannot Verified 11/01/20 17:52 Remember pravastatin Allergy Other Verified 11/01/20 17:52 Home Meds: Home Meds hydroCHLOROthiazide [Hydrochlorothiazide] 25 mg PO DAILY 11/08/14 [History] Clopidogrel Bisulfate [Clopidogrel] 75 mg PO DAILY 09/06/15 [History] Apixaban [Eliquis] 5 mg PO BID 12/16/16 [History] Fluticasone Furoate [Flonase Sensimist] 2 spray NASBOTH DAILY 07/16/17 [History] Rosuvastatin Calcium 5 mg PO BEDTIME 11/18/17 [History] Tiotropium [place] [Spiriva Respimat] 4 gm IH DAILY 11/18/17 [History] Albuterol Sulfate 1 dose INH Q6HR PRN 06/03/20 [History] Ezetimibe 5 mg PO DAILY 06/03/20 [History] Famotidine 20 mg PO DAILY 06/03/20 [History] Nicotine [Nicotine Patch] 21 mg TD DAILY 06/03/20 [History] guaiFENesin [Guaifenesin] 200 mg PO TID 06/03/20 [History] Acetaminophen [Tylenol Extra Strength] 500 mg PO Q4H 06/29/20 [History] Calcium Carbonate [Tums Extra Strength] 750 mg PO DAILY 06/29/20 [History] Cetirizine HCl [Zyrtec] 10 mg PO DAILY 06/29/20 [History] Cholecalciferol (Vitamin D3) [D3-50] 4,000 units PO DAILY 06/29/20 [History] Mometasone/Formoterol [Dulera 200-5 MCG] 2 puff INH BID 06/29/20 [History] Albuterol Sulfate [Albuterol Sulfate HFA] 2 puff INH Q6HR 04/01/21 [History] Verapamil HCl [Verapamil ER] 300 mg PO BEDTIME 04/01/21 [History] Past Medical History HEENT History: Reports: Cataract Other HEENT History: wears glasses Cardiovascular History: Reports: Afib, Arrhythmia, CAD, High Cholesterol, Hypertension, Pacemaker, SOB on Exertion, Stents Other Cardiovascular History: 2 left leg and 1 right leg Respiratory History: Reports: COPD, Sleep Apnea Gastrointestinal History: Reports: GERD Genitourinary History: Reports: None Musculoskeletal History: Reports: Arthritis, Back Pain, Chronic Neurological History: Reports: None Psychiatric History: Reports: Anxiety Other Psychiatric History: occasional anxiety Endocrine/Metabolic History: Reports: Hypothyroidism Other Endocrine/Metabolic History: thyroid problems Hematologic History: Reports: Anemia Immunologic History: Reports: None Oncologic (Cancer) History: Reports: None Dermatologic History: Reports: Other (See Below) Other Dermatologic History: dry flaky skin to heels - Infectious Disease History Infectious Disease History: Reports: Chicken Pox, Measles, Mumps - Past Surgical History HEENT Surgical History: Reports: Cataract Surgery, Tonsillectomy Cardiovascular Surgical History: Reports: Coronary Artery Bypass, Pacer, Vascular Surgery, Other (See Below) Other Cardiovascular Surgeries/Procedures: 3 bypass. bilateral popliteal artery aneurysm. s/p periphereal artery stent thrombosis Respiratory Surgical History: Reports: None GI Surgical History: Reports: Colonoscopy Male Surgical History: Reports: None Musculoskeletal Surgical History: Reports: None Social & Family History - Family History Family Medical History: No Pertinent Family History - Tobacco Use Tobacco Use Status *Q: Current Every Day Tobacco User Years of Tobacco use: 60 Packs/Tins Daily: 0.5 Second Hand Smoke Exposure: No - Caffeine Use Caffeine Use: Reports: None Caffeine Use Comment: decaf - Recreational Drug Use Recreational Drug Use: No - Living Situation & Occupation Living situation: Reports: , Alone Occupation: Retired ED ROS GENERAL - Review of Systems Constitutional: Reports: No Symptoms HEENT: Reports: No Symptoms Respiratory: Reports: Shortness of Breath, Cough, Sputum Cardiovascular: Reports: No Symptoms Endocrine: Reports: No Symptoms GI/Abdominal: Reports: No Symptoms : Reports: No Symptoms Musculoskeletal: Reports: No Symptoms Skin: Reports: No Symptoms Neurological: Reports: No Symptoms Psychiatric: Reports: No Symptoms Hematologic/Lymphatic: Reports: No Symptoms ED EXAM, GENERAL - Physical Exam Exam: See Below Exam Limited By: No Limitations General Appearance: Alert, WD/WN, No Apparent Distress Ears: Normal External Exam, Hearing Grossly Normal Nose: Normal Inspection, Normal Mucosa, No Blood Throat/Mouth: Normal Inspection, Normal Lips, Normal Teeth, Normal Gums, Normal Oropharynx, Normal Voice, No Airway Compromise Head: Atraumatic, Normocephalic Neck: Normal Inspection, Supple, Non-Tender, Full Range of Motion Respiratory/Chest: No Respiratory Distress, Lungs Clear, Normal Breath Sounds, No Accessory Muscle Use, Chest Non-Tender Cardiovascular: Normal Peripheral Pulses, Regular Rate, Rhythm, No Edema, No Gallop, No JVD, No Murmur, No Rub GI/Abdominal: Normal Bowel Sounds, Soft, Non-Tender, No Organomegaly, No Distention, No Abnormal Bruit, No Mass Back Exam: Normal Inspection, Full Range of Motion, NT Extremities: Normal Inspection, Normal Range of Motion, Non-Tender, Normal Capillary Refill, No Pedal Edema Psychiatric: Normal Affect, Normal Mood Skin Exam: Warm, Dry, Intact, Normal Color, No Rash #1 Interpretation EKG Date: 04/01/21 Time: 20:25 Rhythm: Other Departure - Departure Disposition: Home, Self-Care 01 Clinical Impression: COPD exacerbation - Discharge Information Instructions: Chronic Obstructive Pulmonary Disease, [id number] Referrals: PCP,None [Primary Care Provider] - Forms: ED Department Discharge Additional Instructions: prednisone 40mg daily x 5 days Recheck Clinic Tuesday Follow up sooner if increased difficulty breathing, fevers/ chills Continue home medications Sepsis Event Note (ED) - Evaluation Sepsis Screening Result: No Definite Risk - Problem List & Annotations (1) COPD exacerbation SNOMED Code(s): 032917836 Code(s): J44.1 - CHRONIC OBSTRUCTIVE PULMONARY DISEASE W (ACUTE) EXACERBATION Status: Acute <Flavia Alejo - Last Filed: 04/02/21 04:08> ED ROS GENERAL - Review of Systems Review Of Systems: See Below ED EXAM, GENERAL - Physical Exam Neurological: Alert, Oriented, Normal Cognition Course - Vital Signs Last Recorded V/S: Last Vital Signs Temp 98.1 F 04/01/21 17:48 Pulse 60 04/01/21 17:48 Resp 18 04/01/21 17:48 BP 157/75 H 04/01/21 17:48 Pulse Ox 97 04/01/21 17:48 - Orders/Labs/Meds Labs: Laboratory Tests 04/01/21 04/01/21 Range/Units 20:42 20:42 WBC 8.4 (5.0-10.0) 10^3/uL RBC 5.62 (4.6-6.2) 10^6/uL Hgb 17.5 (14.0-18.0) g/dL Hct 50.9 (40.0-54.0) % MCV 90.6 (80-100) fL MCH 31.1 (27.0-34.0) pg MCHC 34.4 (33.0-35.0) g/dL Plt Count 224 (150-450) 10^3/uL Neut % (Auto) 47.6 (42.2-75.2) % Lymph % (Auto) 40.0 (20.5-50.1) % [place] % (Auto) 8.0 (2-8) % Eos % (Auto) 3.8 H (1.0-3.0) % Baso % (Auto) 0.6 (0.0-1.0) % Sodium 142 (136-145) mmol/L Potassium 3.8 (3.5-5.1) mmol/L Chloride 105 (98-107) mmol/L Carbon Dioxide 26 (21-32) mmol/L Anion Gap 14.8 H (7-13) mEq/L BUN 19 H (7-18) mg/dL Creatinine 1.07 (0.70-1.30) mg/dL Est Cr Clr Drug Dosing 61.60 mL/min Estimated GFR (MDRD) > 60 BUN/Creatinine Ratio 17.8 (No establ ref range) Glucose 90 (70-99) mg/dL Calcium 8.9 (8.5-10.1) mg/dL Total Bilirubin 0.4 (0.2-1.0) mg/dL AST 15 (15-37) U/L ALT 20 (16-63) U/L Alkaline Phosphatase 70 (46-116) U/L Total Protein 7.3 (6.4-8.2) g/dL Albumin 3.4 (3.4-5.0) g/dL Globulin 3.9 Albumin/Globulin Ratio 0.9 Meds: Medications Discontinued Medications Generic Name Dose Route Start Last Admin Trade Name Freq PRN Reason Stop Dose Admin Prednisone 40 mg 04/01/21 21:18 04/01/21 21:23 Prednisone 20 Mg Tab PO 04/01/21 21:19 40 mg ONETIME ONE Administration - Re-Assessments/Exams Free Text/Narrative Re-Assessment/Exam: 04/01/21 21:24 I have examined the patient. I have discussed findings and treatment plan with resident. I agree with assessment plan and documentation. Departure - Departure Time of Disposition: 21:21 Condition: Good - Discharge Information *PRESCRIPTION DRUG MONITORING PROGRAM REVIEWED*: No *COPY OF PRESCRIPTION DRUG MONITORING REPORT IN PATIENT NGOC: No Sepsis Event Note (ED) - Focused Exam Vital Signs: Vital Signs Temp Pulse Resp BP Pulse Ox 04/01/21 17:48 98.1 F 60 18 157/75 H 97
[2021-04-01 21:13] LABS: ANION GAP 14.8 mEq/L (7-13); CHLORIDE,CL 105 mmol/L (98-107); SODIUM,NA 142 mmol/L (136-145)
--- NOTE | 2021-04-01 21:14 | CR ---
PROCEDURE INFORMATION: Exam: XR Chest Exam date and time: 04/01/2021 8:31 PM Age: 75 years old Clinical indication: Shortness of breath; Prior surgery; Surgery date: 6+ months; Surgery type: Heart surgery; Additional info: SOB TECHNIQUE: Imaging protocol: XR of the chest. Views: 1 view. COMPARISON: CR Chest 1V Frontal 11/01/2020 6:42 PM FINDINGS: Tubes, catheters and devices: Loop recorder in the left precordium. Lungs: Unremarkable. No consolidation. Pleural spaces: Stable blunting of the left costophrenic angle and pleural contour. Heart/Mediastinum: Unremarkable. No cardiomegaly. Bones/joints: Status post sternotomy. IMPRESSION: No acute findings.
[2021-04-01] MEDS ORDERED: predniSONE 20 MG Tab PO ONE (21:18)
== END 2021-04-01 21:32 | disposition home or self-care (01) ==
LOC: DL.ED 17:36
DX: J44.1 Chronic obstructive pulmonary disease with (acute) exacerbation (principal); I48.91 Unspecified atrial fibrillation; I25.10 Atherosclerotic heart disease of native coronary artery without angina pectoris; E78.00 Pure hypercholesterolemia, unspecified; I10 Essential (primary) hypertension; E03.9 Hypothyroidism, unspecified; Z79.01 Long term (current) use of anticoagulants; Z79.02 Long term (current) use of antithrombotics/antiplatelets; Z79.899 Other long term (current) drug therapy; Z88.8 Allergy status to other drugs, medicaments and biological substances; Z88.5 Allergy status to narcotic agent
CPT/HCPCS: 36415; 71045; 80053; 85025; 93005; 99285; J7512; 99283

== ENCOUNTER 2021-07-30 10:56 | Emergency (ER) | payer OTHER, MEDICARE ==
[2021-07-30] MEDS ORDERED: Sodium Chloride 0.9% 10 ML Syringe FLUSH PRN (11:16)
[2021-07-30 11:31] VITALS: BP 144/97
--- NOTE | 2021-07-30 11:51 | EDM.PDOC ---
ED HPI GENERAL MEDICAL PROBLEM - General Stated Complaint: REPITORY PROBLEMS, COVID SYMPTOMS Time Seen by Provider: 07/30/21 11:46 Source of Information: Reports: Patient History Limitations: Reports: No Limitations - History of Present Illness INITIAL COMMENTS - FREE TEXT/NARRATIVE: 76 y/o M c/o sob and cough x 2 weeks. [facility] then [facility] for eval of his complaints. Hx of COPD, CAD, AAA. He reports increasing sob with productive clear and green sputum. SOB is worse with exertion. He reports using his albuterol rescue inhaler 3-4 times a day with minimal relief. Denies fever, chills, cp, abd pn, trauma, diff voiding, constipation, blood in urine or stool, - Related Data Allergies Allergy/AdvReac Type Severity Reaction Status Date / Time atenolol Allergy Swollen Verified 07/30/21 11:27 Tongue atorvastatin Allergy Cannot Verified 07/30/21 11:27 Remember candesartan Allergy Cannot Verified 07/30/21 11:27 Remember diltiazem Allergy Cannot Verified 07/30/21 11:27 Remember doxazosin Allergy Cannot Verified 07/30/21 11:27 Remember felodipine Allergy Cannot Verified 07/30/21 11:27 Remember formoterol [From Symbicort] Allergy Numbness Verified 07/30/21 11:27 hydralazine Allergy Cannot Verified 07/30/21 11:27 Remember labetalol Allergy Swollen Verified 07/30/21 11:27 Tongue lisinopril Allergy Cannot Verified 07/30/21 11:27 Remember metoprolol Allergy Swollen Verified 07/30/21 11:27 Tongue nifedipine Allergy Cannot Verified 07/30/21 11:27 Remember pravastatin Allergy Other Verified 07/30/21 11:27 Home Meds: Home Meds hydroCHLOROthiazide [Hydrochlorothiazide] 25 mg PO DAILY 11/08/14 [History] Clopidogrel Bisulfate [Clopidogrel] 75 mg PO DAILY 09/06/15 [History] Apixaban [Eliquis] 5 mg PO BID 12/16/16 [History] Fluticasone Furoate [Flonase Sensimist] 2 spray NASBOTH DAILY 07/16/17 [History] Rosuvastatin Calcium 5 mg PO BEDTIME 11/18/17 [History] Tiotropium [place] [Spiriva Respimat] 4 gm IH DAILY 11/18/17 [History] Albuterol Sulfate 1 dose INH Q6HR PRN 06/03/20 [History] Ezetimibe 5 mg PO DAILY 06/03/20 [History] Famotidine 20 mg PO DAILY 06/03/20 [History] Nicotine [Nicotine Patch] 21 mg TD DAILY 06/03/20 [History] guaiFENesin [Guaifenesin] 200 mg PO TID 06/03/20 [History] Acetaminophen [Tylenol Extra Strength] 500 mg PO Q4H 06/29/20 [History] Calcium Carbonate [Tums Extra Strength] 750 mg PO DAILY 06/29/20 [History] Cetirizine HCl [Zyrtec] 10 mg PO DAILY 06/29/20 [History] Cholecalciferol (Vitamin D3) [D3-50] 4,000 units PO DAILY 06/29/20 [History] Mometasone/Formoterol [Dulera 200-5 MCG] 2 puff INH BID 06/29/20 [History] Albuterol Sulfate [Albuterol Sulfate HFA] 2 puff INH Q6HR 04/01/21 [History] Verapamil HCl [Verapamil ER] 300 mg PO BEDTIME 04/01/21 [History] Past Medical History HEENT History: Reports: Cataract Other HEENT History: wears glasses Cardiovascular History: Reports: Afib, Arrhythmia, CAD, High Cholesterol, Hypertension, Pacemaker, SOB on Exertion, Stents Other Cardiovascular History: 2 left leg and 1 right leg Respiratory History: Reports: COPD, Sleep Apnea Gastrointestinal History: Reports: GERD Genitourinary History: Reports: None Musculoskeletal History: Reports: Arthritis, Back Pain, Chronic Neurological History: Reports: None Psychiatric History: Reports: Anxiety Other Psychiatric History: occasional anxiety Endocrine/Metabolic History: Reports: Hypothyroidism, Obesity/BMI 30+ Other Endocrine/Metabolic History: thyroid problems Hematologic History: Reports: Anemia Immunologic History: Reports: None Oncologic (Cancer) History: Reports: None Dermatologic History: Reports: Other (See Below) Other Dermatologic History: dry flaky skin to heels - Infectious Disease History Infectious Disease History: Reports: Chicken Pox, Measles, Mumps - Past Surgical History HEENT Surgical History: Reports: Cataract Surgery, Tonsillectomy Cardiovascular Surgical History: Reports: Coronary Artery Bypass, Pacer, Vascular Surgery, Other (See Below) Other Cardiovascular Surgeries/Procedures: 3 bypass. bilateral popliteal artery aneurysm. s/p periphereal artery stent thrombosis Respiratory Surgical History: Reports: None GI Surgical History: Reports: Colonoscopy Male Surgical History: Reports: None Musculoskeletal Surgical History: Reports: None Social & Family History - Family History Family Medical History: No Pertinent Family History - Tobacco Use Tobacco Use Status *Q: Current Some Day Tobacco User Years of Tobacco use: 30 Packs/Tins Daily: 0.1 - Caffeine Use Caffeine Use: Reports: None Caffeine Use Comment: decaf - Recreational Drug Use Recreational Drug Use: No - Living Situation & Occupation Living situation: Reports: , Alone Occupation: Retired ED ROS GENERAL - Review of Systems Review Of Systems: Comprehensive ROS is negative, except as noted in HPI. ED EXAM, GENERAL - Physical Exam Exam: See Below Exam Limited By: No Limitations General Appearance: Alert Eye Exam: Bilateral Eye: PERRL Nose: Normal Inspection, Normal Mucosa, No Blood Throat/Mouth: Normal Inspection, Normal Lips, Normal Teeth, Normal Gums, Normal Oropharynx, Normal Voice, No Airway Compromise Head: Atraumatic, Normocephalic Neck: Normal Inspection, Supple, Non-Tender, Full Range of Motion Respiratory/Chest: No Respiratory Distress, Other (diminshed lung sounds bilaterally) Cardiovascular: Normal Peripheral Pulses, Irregularly Irregular GI/Abdominal: Soft, Non-Tender (Male) Exam: Deferred Rectal (Males) Exam: Deferred Back Exam: Normal Inspection, Full Range of Motion Extremities: Normal Inspection, Normal Range of Motion, Non-Tender, Normal Capillary Refill, No Pedal Edema Neurological: Alert, Oriented, CN II-XII Intact, Normal Cognition, Normal Gait, Normal Reflexes, No Motor/Sensory Deficits Skin Exam: Warm, Dry, Intact #1 Interpretation EKG Date: 07/30/21 Time: 11:32 Rhythm: Other (VENTRICULAR PACED RHYTHM) [place]: Normal P-Wave: Absent QRS: Wide ST-T: Normal QT: Normal Course - Vital Signs Last Recorded V/S: Last Vital Signs Temp 98.6 F 07/30/21 11:28 Pulse 54 L 07/30/21 12:11 Resp 24 H 07/30/21 11:28 BP 144/97 H 07/30/21 11:28 Pulse Ox 93 L 07/30/21 12:11 - Orders/Labs/Meds Orders: Active Orders 24 hr Category Date Time Status Peripheral IV Care [RC] . DIRECTED Care 07/30/21 11:17 Active RT Aerosol Therapy [RC] ASDIRECTED Care 07/30/21 12:11 Active Sodium Chloride 0.9% [Saline Flush] Med 07/30/21 11:16 Active 10 ml FLUSH ASDIRECTED PRN methylPREDNISolone Sod Succ [Solu-MEDROL] Med 07/30/21 13:33 Once 125 mg IVPUSH ONETIME ONE Peripheral IV Insertion Adult [OM.PC] Routine Oth 07/30/21 11:16 Ordered Medication Orders Methylprednisolone Sodium Succinate (Methylprednisolone Sodium Succinate 125 Mg/2 Ml Sdv) 125 mg IVPUSH ONETIME ONE Stop: 07/30/21 13:34 Sodium Chloride (Sodium Chloride 0.9% 10 Ml Syringe) 10 ml FLUSH ASDIRECTED PRN PRN Reason: Keep Vein Open Labs: Laboratory Tests 07/30/21 07/30/21 07/30/21 Range/Units 11:20 11:20 11:20 WBC 10.7 H (5.0-10.0) 10^3/uL RBC 5.28 (4.6-6.2) 10^6/uL Hgb 16.7 (14.0-18.0) g/dL Hct 49.0 (40.0-54.0) % MCV 92.8 (80-100) fL MCH 31.6 (27.0-34.0) pg MCHC 34.1 (33.0-35.0) g/dL Plt Count 237 (150-450) 10^3/uL Neut % (Auto) 48.3 (42.2-75.2) % Lymph % (Auto) 42.0 (20.5-50.1) % [place] % (Auto) 6.9 (2-8) % Eos % (Auto) 2.2 (1.0-3.0) % Baso % (Auto) 0.6 (0.0-1.0) % D-Dimer, Quantitative 437 H (0-400) ng/mL Sodium 142 (136-145) mmol/L Potassium 3.7 (3.5-5.1) mmol/L Chloride 104 (98-107) mmol/L Carbon Dioxide 29 (21-32) mmol/L Anion Gap 12.7 (7-13) mEq/L BUN 19 H (7-18) mg/dL Creatinine 0.94 (0.70-1.30) mg/dL Est Cr Clr Drug Dosing 67.95 mL/min Estimated GFR (MDRD) > 60 BUN/Creatinine Ratio 20.2 (No establ ref range) Glucose 94 (70-99) mg/dL Lactic Acid (0.4-2.0) mmol/L Calcium 8.8 (8.5-10.1) mg/dL Magnesium 2.0 (1.8-2.4) mg/dL Total Bilirubin 0.5 (0.2-1.0) mg/dL AST 15 (15-37) U/L ALT 26 (16-63) U/L Alkaline Phosphatase 60 (46-116) U/L Troponin I High Sens (<=76) pg/mL C-Reactive Protein < 0.2 (0.0-0.9) mg/dL B-Natriuretic Peptide 383 H (0-100) pg/ml Total Protein 7.0 (6.4-8.2) g/dL Albumin 3.5 (3.4-5.0) g/dL Globulin 3.5 Albumin/Globulin Ratio 1.0 Influenza Type A RNA (NEGATIVE) Influenza Type B RNA (NEGATIVE) SARS-CoV-2 RNA (MYRA) (NEGATIVE) 07/30/21 07/30/21 07/30/21 Range/Units 11:20 11:20 11:28 WBC (5.0-10.0) 10^3/uL RBC (4.6-6.2) 10^6/uL Hgb (14.0-18.0) g/dL Hct (40.0-54.0) % MCV (80-100) fL MCH (27.0-34.0) pg MCHC (33.0-35.0) g/dL Plt Count (150-450) 10^3/uL Neut % (Auto) (42.2-75.2) % Lymph % (Auto) (20.5-50.1) % [place] % (Auto) (2-8) % Eos % (Auto) (1.0-3.0) % Baso % (Auto) (0.0-1.0) % D-Dimer, Quantitative (0-400) ng/mL Sodium (136-145) mmol/L Potassium (3.5-5.1) mmol/L Chloride (98-107) mmol/L Carbon Dioxide (21-32) mmol/L Anion Gap (7-13) mEq/L BUN (7-18) mg/dL Creatinine (0.70-1.30) mg/dL Est Cr Clr Drug Dosing mL/min Estimated GFR (MDRD) BUN/Creatinine Ratio (No establ ref range) Glucose (70-99) mg/dL Lactic Acid 1.3 (0.4-2.0) mmol/L Calcium (8.5-10.1) mg/dL Magnesium (1.8-2.4) mg/dL Total Bilirubin (0.2-1.0) mg/dL AST (15-37) U/L ALT (16-63) U/L Alkaline Phosphatase (46-116) U/L Troponin I High Sens 21 (<=76) pg/mL C-Reactive Protein (0.0-0.9) mg/dL B-Natriuretic Peptide (0-100) pg/ml Total Protein (6.4-8.2) g/dL Albumin (3.4-5.0) g/dL Globulin Albumin/Globulin Ratio Influenza Type A RNA Negative (NEGATIVE) Influenza Type B RNA Negative (NEGATIVE) SARS-CoV-2 RNA (MYRA) Negative (NEGATIVE) Meds: Medications Generic Name Dose Route Start Last Admin Trade Name Freq PRN Reason Stop Dose Admin Methylprednisolone Sodium Succinate 125 mg 07/30/21 13:33 Methylprednisolone Sodium Succinate 125 Mg/2 Ml Sdv IVPUSH 07/30/21 13:34 ONETIME ONE Sodium Chloride 10 ml 07/30/21 11:16 Sodium Chloride 0.9% 10 Ml Syringe FLUSH ASDIRECTED PRN Keep Vein Open Discontinued Medications Generic Name Dose Route Start Last Admin Trade Name Freq PRN Reason Stop Dose Admin Albuterol/Ipratropium 6 ml 07/30/21 12:11 07/30/21 12:29 Albuterol/Ipratropium 3.0-0.5 Mg/3 Ml Neb Soln NEB 07/30/21 12:12 6 ml ONETIME ONE Administration - Re-Assessments/Exams Free Text/Narrative Re-Assessment/Exam: 07/30/21 13:34 I discussed the labs, exam, egk and cxr with the pt and informed him that given the negative lab findings along with his diminished lung sounds that he likely has been having a COPD exacerbation. I advised the pt to stop smoking and he informed me that the [facility] has mailed him some nicotine patches to try to use to quit. Departure - Departure Time of Disposition: 13:36 Disposition: Home, Self-Care 01 Condition: Good Clinical Impression: COPD (chronic obstructive pulmonary disease) Qualifiers: COPD type: chronic bronchitis Chronic bronchitis type: unspecified Qualified Code(s): J42 - Unspecified chronic bronchitis - Discharge Information *PRESCRIPTION DRUG MONITORING PROGRAM REVIEWED*: Not Applicable *COPY OF PRESCRIPTION DRUG MONITORING REPORT IN PATIENT NGOC: Not Applicable Instructions: Chronic Obstructive Pulmonary Disease, [id number] Additional Instructions: RX: Prednisone Use your inhaler and nebulizer to help you with your breathing. Smoking is contributing to your breathing problems, if you are able to quit your breathing my improve. If your symptoms do not resolve follow up with your primary care facility or return to the ER. Sepsis Event Note (ED) - Evaluation Sepsis Screening Result: No Definite Risk - Focused Exam Vital Signs: Vital Signs Temp Pulse Resp BP Pulse Ox Pulse Ox 07/30/21 12:11 54 L 93 L 07/30/21 11:28 98.6 F 56 L 24 H 144/97 H 94 L - My Orders Last 24 Hours: My Active Orders 07/30/21 11:16 Sodium Chloride 0.9% [Saline Flush] 10 ml FLUSH ASDIRECTED PRN Peripheral IV Insertion Adult [OM.PC] Routine 07/30/21 11:17 Peripheral IV Care [RC] . DIRECTED 07/30/21 12:11 RT Aerosol Therapy [RC] ASDIRECTED 07/30/21 13:33 methylPREDNISolone Sod Succ [Solu-MEDROL] 125 mg IVPUSH ONETIME ONE - Assessment/Plan Last 24 Hours: My Active Orders 07/30/21 11:16 Sodium Chloride 0.9% [Saline Flush] 10 ml FLUSH ASDIRECTED PRN Peripheral IV Insertion Adult [OM.PC] Routine 07/30/21 11:17 Peripheral IV Care [RC] . DIRECTED 07/30/21 12:11 RT Aerosol Therapy [RC] ASDIRECTED 07/30/21 13:33 methylPREDNISolone Sod Succ [Solu-MEDROL] 125 mg IVPUSH ONETIME ONE
[2021-07-30 12:02] LABS: ANION GAP 12.7 mEq/L (7-13); CHLORIDE,CL 104 mmol/L (98-107); SODIUM,NA 142 mmol/L (136-145)
[2021-07-30] MEDS ORDERED: Albuterol/Ipratropium 3.0-0.5 MG/3 ML Neb Soln NEB ONE (12:11)
[2021-07-30 12:19] LABS: CORONAVIRUS COVID-19 NAA NEGATIVE (NEGATIVE)
[2021-07-30 12:30] VITALS: PULSE 54
--- NOTE | 2021-07-30 13:22 | CR ---
EXAMINATION: Chest 1V Frontal SEX: Male AGE: 76 years CLINICAL HISTORY: 76-year-old male smoker complaining of shortness of breath (OB) and cough. Comparison 01 April. INTERPRETATION: Abnormal. 1. *Generalized relative increase venous congestion/cephalization since comparison CXR but no new alveolar edema or dependent pleural fluid accumulation (old scarring left costophrenic sulcus). BNP? Patient weight? 2. Normal cardiac silhouette (size and configuration). Sternotomy wires. 3. No new lung mass or hilar lymphadenopathy. 4. No atelectasis/collapse, alveolar infiltrates, or new peripheral "groundglass" interstitial lung densities. 5. No pneumothorax or pneumomediastinum. No free subdiaphragmatic air.
[2021-07-30] MEDS ORDERED: methylPREDNISolone Sodium Succinate 125 MG/2 ML SDV IVPUSH ONE (13:33)
== END 2021-07-30 13:56 | disposition home or self-care (01) ==
LOC: DL.ED 10:56
DX: J42 Unspecified chronic bronchitis (principal); K21.9 Gastro-esophageal reflux disease without esophagitis; I25.10 Atherosclerotic heart disease of native coronary artery without angina pectoris; Z88.8 Allergy status to other drugs, medicaments and biological substances; Z79.01 Long term (current) use of anticoagulants; Z79.899 Other long term (current) drug therapy; Z95.0 Presence of cardiac pacemaker; Z95.5 Presence of coronary angioplasty implant and graft; Z72.0 Tobacco use; Z20.822 Contact with and (suspected) exposure to COVID-19
CPT/HCPCS: 0240U; 36415; 71045; 80053; 83605; 83735; 83880; 84484; 85025; 85379; 86140; 93005; 94640; 96374; 99285; J2930; J7620-GY

== ENCOUNTER 2022-01-04 21:51 | Emergency (ER) | payer OTHER, MEDICARE ==
[2022-01-04 22:30] VITALS: PULSE 66
[2022-01-04 22:43] LABS: ANION GAP 15.5 mEq/L (7-13)
== END 2022-01-05 01:30 | disposition home or self-care (01) ==
LOC: DL.ED 21:51
DX: R07.89 Other chest pain (principal); K21.00 Gastro-esophageal reflux disease with esophagitis, without bleeding; F41.9 Anxiety disorder, unspecified; I48.91 Unspecified atrial fibrillation; I25.10 Atherosclerotic heart disease of native coronary artery without angina pectoris; E78.00 Pure hypercholesterolemia, unspecified; I10 Essential (primary) hypertension; J42 Unspecified chronic bronchitis; E66.9 Obesity, unspecified; Z68.33 Body mass index [BMI] 33.0-33.9, adult; Z95.0 Presence of cardiac pacemaker; Z88.8 Allergy status to other drugs, medicaments and biological substances; Z79.01 Long term (current) use of anticoagulants; Z79.899 Other long term (current) drug therapy
CPT/HCPCS: 36415; 71045; 80053; 83735; 83880; 84484; 85025; 93005; 99285-25